=== PATIENT | male | born 1995 | race Caucasian/White ===

== ENCOUNTER 2022-09-16 17:40 | Emergency (ER) | payer SELFPAY | END 2022-09-16 18:00 | disposition left against medical advice (07) | LOC: ED 17:40 → EDSTATUS 17:50 → ED 18:00 | DX: Z53.21 Procedure and treatment not carried out due to patient leaving prior to being seen by health care provider (principal) ==

== ENCOUNTER 2022-10-10 21:42 | Emergency (ER) | payer MEDICAID ==
--- NOTE | 2022-10-10 22:13 | ERPHSYRPT ---
- History of Present Illness Source: patient Exam Limitations: no limitations Patient Subjective Stated Complaint: pt states he tested positive for covid on tuesday and has been "feeling off". Triage Nursing Assessment: pt alert and oriented, answers questions approp. pt a mbulatory with steady gait noted. respirations nonlabored with lungs cta. no distress noted. Physician History: 27 yo wm w +CV19 test on 10/05/22 presents w fever/cough/carl[place] za/N/V/D/chills/Myalgias. Pt was not started on Paxlovid. Sats in mid 90's. Timing/Duration: other (10/05/22) Cough Quality/Degree: dry cough Possible Cause: no prior episodes Modifying Factors: Improves With: nothing Associated Symptoms: fever, chills, cough, headache, muscle aches, nasal congestion, nasal drainage Allergies/Adverse Reactions: sulfamethoxazole [From Bactrim] Allergy (Unknown, Verified 10/10/22 22:05) trimethoprim [From Bactrim] Allergy (Unknown, Verified 10/10/22 22:05) Home Medications: PANTOPRAZOLE 40 mg Tablet [Protonix 40MG Tablet] 40 mg PO QAM 10/10/22 [History] Hx Tetanus, Diphtheria Vaccination/Date Given: Yes Hx Influenza Vaccination/Date Given: No Hx Pneumococcal Vaccination/Date Given: No Immunizations Up to Date: Yes Travel Risk - International Travel Have you traveled outside of the country in past 3 weeks: No - Coronavirus Screening Are you exhibiting any of the following symptoms?: Yes Symptoms: Fever, Cough: New Onset, Headaches/Body Aches/Fatigue Close contact with a COVID-19 positive Pt in past 14-21 Days: Yes - Vaccine Status Have you recieved a Covid-19 vaccination: No - Review of Systems Constitutional: No Symptoms, Fever, Chills, Malaise Eyes: No Symptoms Ears, Nose, & Throat: No Symptoms, Nose Congestion, Nose Discharge, Sinus Drainage Respiratory: No Symptoms, Cough Cardiac: No Symptoms Abdominal/Gastrointestinal: No Symptoms Genitourinary Symptoms: No Symptoms Musculoskeletal: No Symptoms, Myalgias Skin: No Symptoms Neurological: No Symptoms Psychological: No Symptoms Endocrine: No Symptoms Hematologic/Lymphatic: No Symptoms Immunological/Allergic: No Symptoms - Past Medical History Pertinent Past Medical History: No - Past Surgical History Past Surgical History: Yes - Social History Smoking Status: Former smoker Exposure to second hand smoke: No Drug Use: none Patient Lives Alone: No - Nursing Vital Signs Nursing Vital Signs: Initial Vital Signs Temperature 97.3 F 10/10/22 21:51 Pulse Rate 84 10/10/22 21:51 Respiratory Rate 16 10/10/22 21:51 Blood Pressure 151/90 10/10/22 21:51 O2 Sat by Pulse Oximetry 97 10/10/22 21:51 Pain Scale Pain Intensity 0 Hypertensive - Physical Exam General Appearance: no apparent distress Eye Exam: PERRL/EOMI, eyes nml inspection Ears, Nose, Throat Exam: normal ENT inspection, TMs normal, pharynx normal, moist mucous membranes Neck Exam: normal inspection, non-tender, supple, full range of motion, No meningismus, No mass, No Brudzinski, No Kernig's Respiratory Exam: normal breath sounds, lungs clear, airway intact, No respiratory distress Cardiovascular Exam: regular rate/rhythm, normal heart sounds, normal peripheral pulses, capillary refill <2 sec, No murmur Gastrointestinal/Abdomen Exam: soft, normal bowel sounds Back Exam: normal inspection, normal range of motion Extremity Exam: normal inspection, normal range of motion Neurologic Exam: alert, oriented x 3, cooperative, 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 Too late for Paxlovid therapy. Counseled pt/family regarding: diagnosis, need for follow-up - Departure Departure Disposition: Home Clinical Impression: COVID-19 Condition: Stable Critical Care Time: No Referrals: DOCTOR,NO FAMILY [Primary Care Provider] - Follow up/PCP as directed Instructions: Fever, Adult (DC), COVID-19 (DC) Additional Instructions: Rest/Fluids/Motrin/Tylenol Get a pulse oximeter and monitor your oxygen saturation 2-3 times a day Return to ER for persistent oxygen saturation less than 91%
[2022-10-10 22:24] VITALS: BP 144/92; PULSE 69
[2022-10-10 22:25] VITALS: O2SAT 97
== END 2022-10-10 22:22 | disposition home or self-care (01) ==
LOC: ED 21:42
DX: U07.1 COVID-19 (principal); R50.9 Fever, unspecified; R05.9 Cough, unspecified; R09.81 Nasal congestion; R11.2 Nausea with vomiting, unspecified; R19.7 Diarrhea, unspecified; M79.10 Myalgia, unspecified site; Z28.310 Unvaccinated for COVID-19
CPT/HCPCS: 99281

== ENCOUNTER 2022-10-14 08:10 | Emergency (ER) | payer MEDICAID ==
[2022-10-14 08:28] VITALS: O2SAT 98
[2022-10-14 08:57] LABS: Absolute Neutrophil Ct (ANC) 2.95 x10^3/uL (1.4-6.9); Basophil (Absolute #) 0.07 x10^3/uL (0-0.4); Eosinophil % 2.7 % (0.00-5.0); Eosinophil (Absolute #) 0.19 x10^3/uL (0-0.5); Hemoglobin 14.1 g/dL (12.5-18.0); Lymphocyte (Absolute #) 3.17 x10^3/uL (1.0-4.6); Lymphocytes % 45.5 % (24.0-44.0); Mean Cell Volume 89.4 fL (78-100); Mean Corpuscular Hemoglobin 29.3 pg (26-32); Mean Corpuscular Hgb Concent. 32.8 g/dL (32-36); Mean Platelet Volume 9.5 fL (7.5-11.0); Monocyte (Absolute #) 0.54 x10^3/uL (0.0-1.3); Monocytes % 7.8 % (0.0-12.0); Neutrophil % 42.4 % (36.0-66.0); Platelet Count 322 x10^3/uL (150-450); Red Blood Count 4.81 x10^6/uL (4.1-5.6); Red Cell Distribution Width 12.9 % (11.5-14.0)
[2022-10-14 09:04] LABS: Appearance CLEAR (CLEAR); Bilirubin NEGATIVE (NEGATIVE); Dipstick done @ ? MAIN LAB; Glucose NEGATIVE (NEGATIVE); Ketones NEGATIVE (NEGATIVE); Nitrite NEGATIVE (NEGATIVE); Ph 6.5 (5-6); Protein,Urine Dip NEGATIVE (Negative); RBC NEGATIVE Ery/ul (0-5); Specific Gravity 1.015 (1.005-1.025); Urobilinogen 0.2 mg/dL (0-1)
[2022-10-14 09:05] LABS: Urine Cultured Indicated? NO
[2022-10-14 09:09] LABS: ALBUMIN 4.4 g/dL (3.5-5.0); ALKALINE PHOSPHATASE 86 U/L (38-126); ANION GAP 10.1 MEQ/L (5-15); BLOOD UREA NITROGEN 16 mg/dL (9-20); CHLORIDE 105 mmol/L (98-107); Calcium 8.8 mg/dL (8.4-10.2); Carbon Dioxide 28 mmol/L (22-30); Creatinine 1 1.16 mg/dL (0.66-1.25); EST GLOMERULAR FILTRATION RATE > 60.0 ML/MIN; Glucose 102 mg/dL (74-106); Potassium 4.1 mmol/L (3.5-5.1); SGOT/AST 38 U/L (17-59); SGPT/ALT 64 U/L (0-50); SODIUM 138 mmol/L (137-145); Total Protein 7.4 g/dL (6.3-8.2)
--- NOTE | 2022-10-14 09:12 | ERPHSYRPT ---
- History of Present Illness Time Seen by Provider: 10/14/22 08:17 Source: patient Exam Limitations: no limitations Patient Subjective Stated Complaint: C/O general malaise, fatigue. Tested positive for COVID-19 on 10/12/22. Denies any current pain. Triage Nursing Assessment: Patient ambulated back to ED without difficulties. Patient able to undress self and put on gown without assistanct. He is alert and oriented. NO SOB noted. An occassional, non-productive cough is noted. Skin warm, dry, intact; scar noted to left palacios that patient indicates is from a previous MRSA infection. Physician History: 27 years old with a history of anxiety, GERD presented in the ER with nonspecific complaints. Patient reports he has been having minimal nonproductive cough congestion URI symptoms for almost a week and was diagnosed with COVID-19 2 days ago and is getting supportive care at home without any prescription medications. Patient reports feeling weak fatigued and tired and subjective feeling of fever and chills. Denies any difficulty breathing, chest pain but does have sinus congestion. No abdominal pain nausea vomiting or diarrhea reported. Patient reports he checked his temperature this morning and it was 94F, looked online and freaked out after he that he could be in a septic shock. Patient oxygen saturation is around 100% on room air, heart rate did mid 70s, blood pressure 135 systolic. Not in any distress at all. Timing/Duration: day(s) Severity: mild, moderate Modifying Factors: Improves With: nothing Associated Symptoms: cough, fever, headaches, loss of appetite, malaise, weakne ss, No vomiting, No abdominal pain, No shortness of breath, No heartburn, No chest pain, No syncope Allergies/Adverse Reactions: sulfamethoxazole [From Bactrim] Allergy (Unknown, Verified 10/14/22 08:18) trimethoprim [From Bactrim] Allergy (Unknown, Verified 10/14/22 08:18) Home Medications: PANTOPRAZOLE 40 mg Tablet [Protonix 40MG Tablet] 40 mg PO QAM 10/10/22 [History] Hx Tetanus, Diphtheria Vaccination/Date Given: Yes Hx Influenza Vaccination/Date Given: No Hx Pneumococcal Vaccination/Date Given: No Immunizations Up to Date: Yes Travel Risk - International Travel Have you traveled outside of the country in past 3 weeks: No - Coronavirus Screening Are you exhibiting any of the following symptoms?: Yes Symptoms: Cough: New Onset, Headaches/Body Aches/Fatigue Close contact with a COVID-19 positive Pt in past 14-21 Days: No - Vaccine Status Have you recieved a Covid-19 vaccination: No - Review of Systems Constitutional: Fever, Chills, Fatigue, Weakness Eyes: No Symptoms Ears, Nose, & Throat: Nose Congestion, Sinus Drainage, Throat Pain Respiratory: Cough Cardiac: No Symptoms Abdominal/Gastrointestinal: No Symptoms Genitourinary Symptoms: No Symptoms Musculoskeletal: Myalgias Skin: No Symptoms Neurological: No Symptoms Psychological: Anxiety Endocrine: No Symptoms Hematologic/Lymphatic: No Symptoms Immunological/Allergic: No Symptoms - Past Medical History Pertinent Past Medical History: Yes Respiratory History: Other Other Medical History: MRSA infection to LLE, COVID-19 X 2 - Past Surgical History Past Surgical History: Yes - Social History Smoking Status: Former smoker Exposure to second hand smoke: No Drug Use: none Patient Lives Alone: No - Nursing Vital Signs Nursing Vital Signs: Initial Vital Signs Temperature 97.3 F 10/14/22 08:18 Pulse Rate 94 H 10/14/22 08:18 Respiratory Rate 17 10/14/22 08:18 Blood Pressure 135/93 10/14/22 08:18 O2 Sat by Pulse Oximetry 98 10/14/22 08:18 Pain Scale Pain Intensity 0 - Physical Exam General Appearance: no apparent distress, alert, anxiety Eye Exam: PERRL/EOMI Ears, Nose, Throat Exam: moist mucous membranes, pharyngeal erythema Neck Exam: normal inspection, non-tender, supple, full range of motion Respiratory Exam: normal breath sounds, lungs clear Cardiovascular Exam: regular rate/rhythm, normal heart sounds Gastrointestinal/Abdomen Exam: soft, normal bowel sounds, No tenderness Back Exam: normal inspection, normal range of motion Extremity Exam: normal inspection, normal range of motion Neurologic Exam: alert, oriented x 3, cooperative Skin Exam: normal color SpO2 Interpretation: normal SpO2: 98 O2 Delivery: Room Air Ordered Tests: Active Orders 24 hr Category Date Time Status CBC W DIFF Stat Lab 10/14/22 08:50 Completed CMP Stat Lab 10/14/22 08:50 Completed UA W/RFX CULTURE Stat Lab 10/14/22 08:42 Completed Lab/Rad Data: Laboratory Result Diagrams 10/14/22 08:50 10/14/22 08:50 Laboratory Results 10/14/22 10/14/22 10/14/22 Range/Units 08:50 08:50 08:42 WBC 7.0 (4.0-10.5) x10^3/uL RBC 4.81 (4.1-5.6) x10^6/uL Hgb 14.1 (12.5-18.0) g/dL Hct 43.0 (42-50) % MCV 89.4 (78-100) fL MCH 29.3 (26-32) pg MCHC 32.8 (32-36) g/dL RDW 12.9 (11.5-14.0) % Plt Count 322 (150-450) x10^3/uL MPV 9.5 (7.5-11.0) fL Gran % 42.4 (36.0-66.0) % Immature Gran % (Auto) 0.6 H (0.00-0.4) % Nucleat RBC Rel Count 0.0 (0.00-0.1) % Eos # (Auto) 0.19 (0-0.5) x10^3/uL Immature Gran # (Auto) 0.04 H (0.00-0.03) x10^3u/L Absolute Lymphs (auto) 3.17 (1.0-4.6) x10^3/uL Absolute Monos (auto) 0.54 (0.0-1.3) x10^3/uL Absolute Nucleated RBC 0.00 (0.00-0.01) x10^3u/L Lymphocytes % 45.5 H (24.0-44.0) % Monocytes % 7.8 (0.0-12.0) % Eosinophils % 2.7 (0.00-5.0) % Basophils % 1.0 (0.0-0.4) % Absolute Granulocytes 2.95 (1.4-6.9) x10^3/uL Basophils # 0.07 (0-0.4) x10^3/uL Sodium 138 (137-145) mmol/L Potassium 4.1 (3.5-5.1) mmol/L Chloride 105 (98-107) mmol/L Carbon Dioxide 28 (22-30) mmol/L Anion Gap 10.1 (5-15) MEQ/L BUN 16 (9-20) mg/dL Creatinine 1.16 (0.66-1.25) mg/dL Estimated GFR > 60.0 ML/MIN Glucose 102 (74-106) mg/dL Calcium 8.8 (8.4-10.2) mg/dL Total Bilirubin 0.40 (0.2-1.3) mg/dL AST 38 (17-59) U/L ALT 64 H (0-50) U/L Alkaline Phosphatase 86 (38-126) U/L Serum Total Protein 7.4 (6.3-8.2) g/dL Albumin 4.4 (3.5-5.0) g/dL Urinalys Dipstick Clnc MAIN LAB Urine Color YELLOW (YELLOW) Urine Appearance CLEAR (CLEAR) Urine pH 6.5 (5-6) Ur Specific Hawi 1.015 (1.005-1.025) POC Urine Protein Conf NEGATIVE (Negative) Urine Ketones NEGATIVE (NEGATIVE) Urine Nitrite NEGATIVE (NEGATIVE) Urine Bilirubin NEGATIVE (NEGATIVE) Urine Urobilinogen 0.2 (0-1) mg/dL Urine Leukocytes NEGATIVE (NEGATIVE) Urine WBC (Auto) NONE (0-5) /HPF Urine RBC (Auto) NONE (0-2) /HPF U Epithel Cells (Auto) NONE (FEW) /HPF Urine Bacteria (Auto) NONE (NEGATIVE) /HPF Urine RBC NEGATIVE (0-5) Luis/ul Ur Culture Indicated? NO Urine Glucose NEGATIVE (NEGATIVE) mg/dL - Progress Progress: unchanged, re-examined Progress Note: 10/14/22 09:16 Patient is not in any distress. Work-up unremarkable. Patient is having usual symptoms of COVID-19/viral syndrome. Patient is counseled and recommended continue with supportive care. Part of his symptoms are secondary to anxiety as well. Recommended outpatient primary care follow-up. Discussed signs symptoms of worsening needing return to ER which he seems understanding. Stable for discharge. 10/14/22 09:17 Counseled pt/family regarding: lab results, diagnosis, need for follow-up - Departure Departure Disposition: Home Clinical Impression: Generalized weakness, COVID-19, Viral syndrome Condition: Stable Critical Care Time: No Referrals: DOCTOR,NO FAMILY [Primary Care Provider] - Follow up/PCP as directed ESVIN MORRISON MD [ACTIVE STAFF] - Follow Up with PCP/3 days Instructions: Viral Syndrome (DC) Additional Instructions: Take Tylenol/ibuprofen as needed for drink plenty of fluids to keep yourself well-hydrated follow-up with primary care for reevaluation. Return to ER for any worsening.
[2022-10-14 09:22] VITALS: BP 115/81; PULSE 82
== END 2022-10-14 09:29 | disposition home or self-care (01) ==
LOC: ED 08:10
DX: U07.1 COVID-19 (principal); R53.1 Weakness; R53.83 Other fatigue; R09.81 Nasal congestion; Z28.310 Unvaccinated for COVID-19; Z86.16 Personal history of COVID-19
CPT/HCPCS: 36415; 80053; 81015; 85025; 99282

== ENCOUNTER 2022-11-04 22:04 | Emergency (ER) | payer MEDICAID ==
[2022-11-04 22:56] LABS: Absolute Neutrophil Ct (ANC) 7.04 x10^3/uL (1.4-6.9); Basophil (Absolute #) 0.04 x10^3/uL (0-0.4); Eosinophil % 0.1 % (0.00-5.0); Eosinophil (Absolute #) 0.01 x10^3/uL (0-0.5); Hematocrit 45.8 % (42-50); Hemoglobin 14.8 g/dL (12.5-18.0); Lymphocyte (Absolute #) 1.21 x10^3/uL (1.0-4.6); Lymphocytes % 14.3 % (24.0-44.0); Mean Cell Volume 90.3 fL (78-100); Mean Corpuscular Hemoglobin 29.2 pg (26-32); Mean Corpuscular Hgb Concent. 32.3 g/dL (32-36); Mean Platelet Volume 10.3 fL (7.5-11.0); Monocyte (Absolute #) 0.13 x10^3/uL (0.0-1.3); Monocytes % 1.5 % (0.0-12.0); Neutrophil % 83.4 % (36.0-66.0); Platelet Count 296 x10^3/uL (150-450); Red Blood Count 5.07 x10^6/uL (4.1-5.6); Red Cell Distribution Width 13.1 % (11.5-14.0); White Blood Count 8.5 x10^3/uL (4.0-10.5)
[2022-11-04] MEDS ORDERED: GI COCKTAIL 45 ML (Maalox/Lidocaine) PO ONE (23:14)
--- NOTE | 2022-11-04 23:16 | ERPHSYRPT ---
- History of Present Illness Time Seen by Provider: 11/04/22 22:08 Historian: patient Exam Limitations: no limitations Patient Subjective Stated Complaint: pt states he has been having chest pains for last 3 weeks. states today chest pressure feels worse. pt points to mids ternal for chest pain and does not radiate. pt has also been having headaches for last 3 months. s/o with pt states he has been having a lot of stress lately and chest pain seems to be worse when he gets upset. Triage Nursing Assessment: pt alert and oriented, answers questions approp. pt ambulatory with steady gaot noted. respirations nonlabored with lungs cta bilat. heart rarte 86 sinus rhythmo n monitor. Physician History: 27 years old male was recently diagnosed with sinusitis on Medrol Dosepak and doxycycline for the last few days presented in the ER with epigastric/substernal discomfort and coughing clear to yellow sputum without shortness of breath. This has been progressively worsening for the last few weeks. Patient did have COVID 3 weeks ago. Denies any difficulty breathing or palpitations. No history of CAD. Timing/Duration: week(s) (3), intermittent, worse Activities at Onset: rest Quality: pressure Location: epigastric Chest Pain Radiation: no radiation Severity of Pain-Max: moderate Severity of Pain-Current: moderate Modifying Factors: Improves With: nothing Associated Symptoms: cough Prior Chest Pain/Cardiac Workup: no prior chest pain Nitro Today/Relief: no nitro taken today Aspirin Treatment Today: no aspirin today Allergies/Adverse Reactions: sulfamethoxazole [From Bactrim] Allergy (Unknown, Verified 11/04/22 22:37) trimethoprim [From Bactrim] Allergy (Unknown, Verified 11/04/22 22:37) Home Medications: PANTOPRAZOLE 40 mg Tablet [Protonix 40MG Tablet] 40 mg PO QAM 10/10/22 [History] Hx Tetanus, Diphtheria Vaccination/Date Given: Yes Hx Influenza Vaccination/Date Given: No Hx Pneumococcal Vaccination/Date Given: No Immunizations Up to Date: Yes Travel Risk - International Travel Have you traveled outside of the country in past 3 weeks: No - Coronavirus Screening Are you exhibiting any of the following symptoms?: No Close contact with a COVID-19 positive Pt in past 14-21 Days: No - Vaccine Status Have you recieved a Covid-19 vaccination: No - Review of Systems Constitutional: No Symptoms Eyes: No Symptoms Ears, Nose, & Throat: Sinus Drainage Respiratory: Cough Cardiac: No Symptoms Abdominal/Gastrointestinal: No Symptoms Genitourinary Symptoms: No Symptoms Musculoskeletal: No Symptoms Skin: No Symptoms Neurological: No Symptoms Psychological: Anxiety Endocrine: No Symptoms Hematologic/Lymphatic: No Symptoms Immunological/Allergic: No Symptoms - Past Medical History Pertinent Past Medical History: Yes Respiratory History: Other Other Medical History: MRSA infection to LLE, COVID-19 X 2 - Past Surgical History Past Surgical History: Yes - Social History Smoking Status: Former smoker Exposure to second hand smoke: No Drug Use: none Patient Lives Alone: No - Nursing Vital Signs Nursing Vital Signs: Initial Vital Signs Temperature 97.4 F 11/04/22 22:07 Pulse Rate 80 11/04/22 22:07 Respiratory Rate 18 11/04/22 22:07 Blood Pressure 144/72 11/04/22 22:07 O2 Sat by Pulse Oximetry 97 11/04/22 22:07 Pain Scale Pain Intensity 7 - Physical Exam General Appearance: no apparent distress, alert, anxiety Eye Exam: PERRL/EOMI, eyes nml inspection Ears, Nose, Throat Exam: moist mucous membranes, pharyngeal erythema Neck Exam: normal inspection, non-tender, supple, full range of motion Respiratory Exam: normal breath sounds, lungs clear Cardiovascular Exam: regular rate/rhythm, normal heart sounds Gastrointestinal/Abdomen Exam: soft Back Exam: normal inspection, normal range of motion Extremity Exam: normal inspection, normal range of motion Neurologic Exam: alert, oriented x 3, 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 Skin Exam: normal color SpO2 Interpretation: normal SpO2: 97 O2 Delivery: Room Air - Course EKG Interpreted by Me: RATE, Sinus Rhythm, NORMAL AXIS, NORMAL INTERVALS Ordered Tests: Active Orders 24 hr Category Date Time Status Claims Processor STAT Care 11/04/22 22:38 Active EKG-ER Only STAT Care 11/04/22 22:37 Active CHEST 1 VIEW (PORTABLE) Stat Exams 11/04/22 22:59 Taken CBC W DIFF Stat Lab 11/04/22 22:54 Completed CMP Stat Lab 11/04/22 22:54 Completed TROPONIN Q4H Lab 11/04/22 22:54 Completed TROPONIN Q4H Lab 11/05/22 02:45 Ordered TROPONIN Q4H Lab 11/05/22 06:45 Ordered Medication Summary Discontinued Medications Generic Name Dose Route Start Last Admin Trade Name Clarissa PRN Reason Stop Dose Admin Al Hydrox/Mg Hydrox/Simethicone Confirm 11/04/22 23:20 Mag Hydrox/Al Hydrox/Simeth 30 Ml Udcup Administered 11/04/22 23:21 Dose 30 ml .ROUTE .STK-MED ONE Lidocaine HCl Confirm 11/04/22 23:20 Lidocaine Hcl 2% Viscous 15 Ml Udcup Administered 11/04/22 23:21 Dose 15 ml .ROUTE .STK-MED ONE Magnesium Hydroxide 45 ml 11/04/22 23:14 11/04/22 23:24 Mag Hydrx/Alum Hyd/Simeth/Lido 45 Ml Bottle PO 11/04/22 23:15 45 ml STAT ONE Administration Lab/Rad Data: Laboratory Result Diagrams 11/04/22 22:54 11/04/22 22:54 Laboratory Results 11/04/22 11/04/22 11/04/22 Range/Units 22:54 22:54 22:54 WBC 8.5 (4.0-10.5) x10^3/uL RBC 5.07 (4.1-5.6) x10^6/uL Hgb 14.8 (12.5-18.0) g/dL Hct 45.8 (42-50) % MCV 90.3 (78-100) fL MCH 29.2 (26-32) pg MCHC 32.3 (32-36) g/dL RDW 13.1 (11.5-14.0) % Plt Count 296 (150-450) x10^3/uL MPV 10.3 (7.5-11.0) fL Gran % 83.4 H (36.0-66.0) % Immature Gran % (Auto) 0.2 (0.00-0.4) % Nucleat RBC Rel Count 0.0 (0.00-0.1) % Eos # (Auto) 0.01 (0-0.5) x10^3/uL Immature Gran # (Auto) 0.02 (0.00-0.03) x10^3u/L Absolute Lymphs (auto) 1.21 (1.0-4.6) x10^3/uL Absolute Monos (auto) 0.13 (0.0-1.3) x10^3/uL Absolute Nucleated RBC 0.00 (0.00-0.01) x10^3u/L Lymphocytes % 14.3 L (24.0-44.0) % Monocytes % 1.5 (0.0-12.0) % Eosinophils % 0.1 (0.00-5.0) % Basophils % 0.5 (0.0-0.4) % Absolute Granulocytes 7.04 H (1.4-6.9) x10^3/uL Basophils # 0.04 (0-0.4) x10^3/uL Sodium 139 (137-145) mmol/L Potassium 4.4 (3.5-5.1) mmol/L Chloride 103 (98-107) mmol/L Carbon Dioxide 27 (22-30) mmol/L Anion Gap 13.1 (5-15) MEQ/L BUN 20 (9-20) mg/dL Creatinine 1.43 H (0.66-1.25) mg/dL Estimated GFR > 60.0 ML/MIN Glucose 115 H (74-106) mg/dL Calcium 9.8 (8.4-10.2) mg/dL Total Bilirubin 0.30 (0.2-1.3) mg/dL AST 39 (17-59) U/L ALT 66 H (0-50) U/L Alkaline Phosphatase 86 (38-126) U/L Troponin I < 0.012 (0.000-0.034) ng/mL Serum Total Protein 7.8 (6.3-8.2) g/dL Albumin 5.0 (3.5-5.0) g/dL - Progress Progress: improved, re-examined Air Movement: good Progress Note: 11/05/22 00:17 27 years old is evaluated for cough congestion, URI/sinusitis currently on Doxy and Medrol Dosepak with chest pain off and on for the last few weeks. Reports burning/pressure sensation without any difficulty breathing or palpitations. No fever or chills reported. Patient does have a history of acid reflux and have some epigastric discomfort. He is given GI cocktail. EKG showed normal sinus rhythm. Negative troponins. PERC negative. Chest x-ray no acute c ardiopulmonary findings reviewed by me, official report is pending. Mild SAFIA with a creatinine of 1.4 with a baseline around 1.1. Recommended increase hydration. Otherwise unremarkable chemistries. I believe patient is having a combination of symptoms secondary to viral bronchitis/gastritis with GERD symptoms because he has been taking steroids and doxycycline. Low heart score, do not think needs any further work-up and patient is being discharged with Carafate and outpatient follow-up. Discussed signs symptoms of worsening needing return to ER which she seems understanding. Since symptoms been going on for quite some time and I do not think that needs second troponin and 1 will rule it out. Blood Culture(s) Obtained: No Antibiotics given: No Counseled pt/family regarding: lab results, diagnosis, need for follow-up, rad results - Departure Departure Disposition: Home Clinical Impression: GERD with esophagitis, Atypical chest pain, SAFIA (acute kidney injury) Condition: Referrals: NAN SILVER, [employer] [Primary Care Provider] - Follow up/PCP as directed (1 2 days for reevaluation) Instructions: Chest Pain (DC), Acute Kidney Injury (DC) Additional Instructions: Do not take NSAIDs / ibuprofen. Follow-up with primary care for reevaluation. Return to ER for any worsening. Drink plenty of fluids to keep yourself well- hydrated. Take Tylenol as needed. Prescriptions: Sucralfate 1 gm [Carafate 1 GM] 1 g PO ACHS #20 tablet
[2022-11-04] MEDS ORDERED: XYLOCAINE VISCOUS 2% 15 ML CUP ONE (23:20)
[2022-11-04] MEDS ORDERED: MAALOX ES 30 ML UNIT DOSE ONE (23:20)
[2022-11-04 23:21] LABS: ALKALINE PHOSPHATASE 86 U/L (38-126); ANION GAP 13.1 MEQ/L (5-15); BLOOD UREA NITROGEN 20 mg/dL (9-20); CHLORIDE 103 mmol/L (98-107); Calcium 9.8 mg/dL (8.4-10.2); Carbon Dioxide 27 mmol/L (22-30); Creatinine 1 1.43 mg/dL (0.66-1.25); EST GLOMERULAR FILTRATION RATE > 60.0 ML/MIN; Glucose 115 mg/dL (74-106); Potassium 4.4 mmol/L (3.5-5.1); SGOT/AST 39 U/L (17-59); SGPT/ALT 66 U/L (0-50); SODIUM 139 mmol/L (137-145); Total Protein 7.8 g/dL (6.3-8.2)
[2022-11-04 23:28] VITALS: BP 117/71; PULSE 75
[2022-11-05 00:19] VITALS: O2SAT 97
--- NOTE | 2022-11-05 08:54 | XRAY ---
Indication: Chest pain 3 weeks. Comparison: None Portable apical lordotic chest demonstrates normal heart, lungs, and bony thorax.
== END 2022-11-05 00:49 | disposition home or self-care (01) ==
LOC: ED 22:04
DX: K21.00 Gastro-esophageal reflux disease with esophagitis, without bleeding (principal); R07.89 Other chest pain; N17.9 Acute kidney failure, unspecified; R05.9 Cough, unspecified; Z86.16 Personal history of COVID-19; Z28.310 Unvaccinated for COVID-19
CPT/HCPCS: 36415; 71045; 80053; 84484; 85025; 93005; 93041; 99283; A9270-GY

== ENCOUNTER 2022-11-05 19:13 | Emergency (ER) | payer MEDICAID ==
[2022-11-05] MEDS ORDERED: Zofran 4 MG/2 ML VIAL IV ONE (20:07)
[2022-11-05] MEDS ORDERED: PROTONIX 40 MG IV IV ONE ×2 (20:07→20:21)
[2022-11-05] MEDS ORDERED: Sodium Chloride 0.9% 1000 ML 1,000 ML IV STA (20:07)
--- NOTE | 2022-11-05 20:17 | ERPHSYRPT ---
- History of Present Illness Historian: patient Exam Limitations: no limitations Patient Subjective Stated Complaint: pt states he feels like he has something stuck in his throat. pt states he got medicine last night and has trouble since then. pt states burning sensation Triage Nursing Assessment: pt ambulated into the er; pt is axo x4; pt is nervous and anxious; c/o indigestion; pt states 8/10 pain to throat; clear lung sounds in all lobes; no obstruction noted with auscultation; clear heart tones; skin PDW; mucus membranes pink and moist; vitals wnl Physician History: 27-year-old male presenting to the ED today with a 2-day history of chest heaviness, nausea, coffee-ground emesis and a feeling that something is stuck in his throat. Patient was evaluated in the ED yesterday and was given a GI cocktail after cardiac etiology was ruled out. Patient reports that symptoms worsened after receiving the GI cocktail. Patient states that around 830 this morning his symptoms worsed. He reports a history of 40 mg a day pantoprazole use, but denies ever having an EGD or ulcer history. Patient also reporting abdominal pain worsening epigastric region. He denies fever, chills, SOB, palpitation or hematochezia. He has been unable to eat or drink anything since last night. Patient also reports that he has had abnormal bowel movement in significant amount of time. His stool alternates between loose and small round pellets. Timing/Duration: yesterday Activities at Onset: none Quality: burning, fullness, pressure Abdominal Pain Onset Location: epigastric Pain Radiation: no radiation Severity of Pain-Max: moderate Severity of Pain-Current: moderate Modifying Factors: Worsens With: eating, vomiting Associated Symptoms: chest pain, heartburn, loss of appetite, nausea, vomiting, No diarrhea, No fever/chills, No shortness of breath Allergies/Adverse Reactions: sulfamethoxazole [From Bactrim] Allergy (Unknown, Verified 11/05/22 19:17) trimethoprim [From Bactrim] Allergy (Unknown, Verified 11/05/22 19:17) Home Medications: PANTOPRAZOLE 40 mg Tablet [Protonix 40MG Tablet] 40 mg PO QAM 10/10/22 [History] Doxycycline Hyclate 100 mg PO BID 11/05/22 [History] Methylprednisolone 4 mg [Medrol 4 mg] 4 mg PO DAILY 11/05/22 [History] Hx Tetanus, Diphtheria Vaccination/Date Given: Yes Hx Influenza Vaccination/Date Given: No Hx Pneumococcal Vaccination/Date Given: No Travel Risk - International Travel Have you traveled outside of the country in past 3 weeks: No - Coronavirus Screening Are you exhibiting any of the following symptoms?: No Close contact with a COVID-19 positive Pt in past 14-21 Days: No - Vaccine Status Have you recieved a Covid-19 vaccination: No - Review of Systems Constitutional: No Symptoms Eyes: No Symptoms Ears, Nose, & Throat: Nose Congestion, Sinus Drainage Respiratory: No Symptoms Cardiac: Chest Pain, No Palpitations, No Syncope Abdominal/Gastrointestinal: Abdominal Pain, Nausea, Vomiting, Constipation, Hematemesis, Dysphagia, Appetite Changes, No Diarrhea, No Hematochezia, No Melena Genitourinary Symptoms: Dysuria, No Hematuria, No Urinary Retention, No Flank Pain Musculoskeletal: No Symptoms Skin: No Symptoms Neurological: No Symptoms Psychological: No Symptoms Endocrine: No Symptoms Hematologic/Lymphatic: No Symptoms Immunological/Allergic: No Symptoms All Other Systems: Reviewed and Negative - Past Medical History Pertinent Past Medical History: Yes Respiratory History: Other GI Medical History: GERD Psycho-Social History: Depression Other Medical History: MRSA infection to LLE, COVID-19 X 2 - Past Surgical History Past Surgical History: Yes - Social History Smoking Status: Former smoker Exposure to second hand smoke: No Drug Use: none Patient Lives Alone: No - Nursing Vital Signs Nursing Vital Signs: Initial Vital Signs Temperature 97.4 F 11/05/22 19:13 Pulse Rate 76 11/05/22 19:13 Respiratory Rate 14 11/05/22 19:13 Blood Pressure 130/61 11/05/22 19:13 O2 Sat by Pulse Oximetry 97 11/05/22 19:13 Pain Scale Pain Intensity 6 - Physical Exam General Appearance: no apparent distress, anxiety Eye Exam: eyes nml inspection Ears, Nose, Throat Exam: normal ENT inspection Neck Exam: normal inspection Respiratory Exam: normal breath sounds, lungs clear, No chest tenderness Cardiovascular Exam: regular rate/rhythm, normal heart sounds, capillary refill <2 sec, No edema Gastrointestinal/Abdomen Exam: soft, normal bowel sounds, tenderness (epigastric), No distention, No guarding, No ecchymosis, No rebound, No hepa tomegaly, No organomegaly Back Exam: No CVA tenderness Neurologic Exam: alert, oriented x 3, cooperative Skin Exam: normal color, warm, dry SpO2 Interpretation: normal SpO2: 97 O2 Delivery: Room Air - Radiology Exams Abdomen X-ray Interpretation: Interpreted by me, Negative Ordered Tests: Active Orders 24 hr Category Date Time Status IV Insertion STAT Care 11/05/22 20:07 Active NPO (ED) STAT Care 11/05/22 20:07 Active Pulse Oximetry (ED) STAT Care 11/05/22 20:07 Active OBSTR/ACUTE ABDOMEN SERIES Stat Exams 11/05/22 20:08 Taken CBC W DIFF Stat Lab 11/05/22 20:20 Completed CMP Stat Lab 11/05/22 20:20 Completed FECAL OCCULT BLOOD - SCREENING Stat Lab 11/05/22 20:08 Ordered Lactic Acid Stat Lab 11/05/22 20:18 Completed PTT Stat Lab 11/05/22 20:20 Completed Medication Summary Discontinued Medications Generic Name Dose Route Start Last Admin Trade Name Clarissa PRN Reason Stop Dose Admin Sodium Chloride 1,000 mls @ 999 mls/hr 11/05/22 20:07 11/05/22 21:32 Sodium Chloride 0.9% 1000 Ml IV 11/05/22 21:07 Infused .Q1H1M STA Infusion Sodium Chloride Confirm 11/05/22 20:21 Sodium Chloride 0.9% 1000 Ml Administered 11/05/22 20:22 Dose 1,000 mls @ ud .ROUTE .STK-MED ONE Ondansetron HCl 4 mg 11/05/22 20:07 11/05/22 20:26 Ondansetron Hcl 4 Mg/2 Ml Vial IV 11/05/22 20:08 4 mg STAT ONE Administration Ondansetron HCl Confirm 11/05/22 20:21 Ondansetron Hcl 4 Mg/2 Ml Vial Administered 11/05/22 20:22 Dose 4 mg .ROUTE .STK-MED ONE Pantoprazole Sodium 40 mg 11/05/22 20:07 11/05/22 20:26 Pantoprazole 40 Mg Vial IV 11/05/22 20:08 40 mg STAT ONE Administration Pantoprazole Sodium Confirm 11/05/22 20:21 Pantoprazole 40 Mg Vial Administered 11/05/22 20:22 Dose 40 mg IV .STK-MED ONE Lab/Rad Data: Laboratory Result Diagrams 11/05/22 20:20 11/05/22 20:20 Laboratory Results 11/05/22 11/05/22 11/05/22 Range/Units 20:20 20:20 20:20 WBC 10.7 H (4.0-10.5) x10^3/uL RBC 4.91 (4.1-5.6) x10^6/uL Hgb 14.4 (12.5-18.0) g/dL Hct 43.7 (42-50) % MCV 89.0 (78-100) fL MCH 29.3 (26-32) pg MCHC 33.0 (32-36) g/dL RDW 13.1 (11.5-14.0) % Plt Count 280 (150-450) x10^3/uL MPV 10.7 (7.5-11.0) fL Gran % 60.5 (36.0-66.0) % Immature Gran % (Auto) 0.4 (0.00-0.4) % Nucleat RBC Rel Count 0.0 (0.00-0.1) % Eos # (Auto) 0.05 (0-0.5) x10^3/uL Immature Gran # (Auto) 0.04 H (0.00-0.03) x10^3u/L Absolute Lymphs (auto) 3.24 (1.0-4.6) x10^3/uL Absolute Monos (auto) 0.81 (0.0-1.3) x10^3/uL Absolute Nucleated RBC 0.00 (0.00-0.01) x10^3u/L Lymphocytes % 30.3 (24.0-44.0) % Monocytes % 7.6 (0.0-12.0) % Eosinophils % 0.5 (0.00-5.0) % Basophils % 0.7 (0.0-0.4) % Absolute Granulocytes 6.49 (1.4-6.9) x10^3/uL Basophils # 0.07 (0-0.4) x10^3/uL APTT 26.3 (25.1-36.5) SECONDS Sodium 141 (137-145) mmol/L Potassium 4.0 (3.5-5.1) mmol/L Chloride 105 (98-107) mmol/L Carbon Dioxide 27 (22-30) mmol/L Anion Gap 12.4 (5-15) MEQ/L BUN 15 (9-20) mg/dL Creatinine 1.01 (0.66-1.25) mg/dL Estimated GFR > 60.0 ML/MIN Glucose 106 (74-106) mg/dL Lactic Acid (0.4-2.0) Calcium 9.7 (8.4-10.2) mg/dL Total Bilirubin 0.50 (0.2-1.3) mg/dL AST 34 (17-59) U/L ALT 59 H (0-50) U/L Alkaline Phosphatase 64 (38-126) U/L Serum Total Protein 7.6 (6.3-8.2) g/dL Albumin 4.9 (3.5-5.0) g/dL 11/05/22 Range/Units 20:18 WBC (4.0-10.5) x10^3/uL RBC (4.1-5.6) x10^6/uL Hgb (12.5-18.0) g/dL Hct (42-50) % MCV (78-100) fL MCH (26-32) pg MCHC (32-36) g/dL RDW (11.5-14.0) % Plt Count (150-450) x10^3/uL MPV (7.5-11.0) fL Gran % (36.0-66.0) % Immature Gran % (Auto) (0.00-0.4) % Nucleat RBC Rel Count (0.00-0.1) % Eos # (Auto) (0-0.5) x10^3/uL Immature Gran # (Auto) (0.00-0.03) x10^3u/L Absolute Lymphs (auto) (1.0-4.6) x10^3/uL Absolute Monos (auto) (0.0-1.3) x10^3/uL Absolute Nucleated RBC (0.00-0.01) x10^3u/L Lymphocytes % (24.0-44.0) % Monocytes % (0.0-12.0) % Eosinophils % (0.00-5.0) % Basophils % (0.0-0.4) % Absolute Granulocytes (1.4-6.9) x10^3/uL Basophils # (0-0.4) x10^3/uL APTT (25.1-36.5) SECONDS Sodium (137-145) mmol/L Potassium (3.5-5.1) mmol/L Chloride (98-107) mmol/L Carbon Dioxide (22-30) mmol/L Anion Gap (5-15) MEQ/L BUN (9-20) mg/dL Creatinine (0.66-1.25) mg/dL Estimated GFR ML/MIN Glucose (74-106) mg/dL Lactic Acid 1.7 (0.4-2.0) Calcium (8.4-10.2) mg/dL Total Bilirubin (0.2-1.3) mg/dL AST (17-59) U/L ALT (0-50) U/L Alkaline Phosphatase (38-126) U/L Serum Total Protein (6.3-8.2) g/dL Albumin (3.5-5.0) g/dL - Progress Progress: improved Progress Note: Patient improved after IV protonix. Hb wnl, minimal wbc, SAFIA from yesterday resolved, liver function improving, unable to give stool sample for occult. Discussed f/u w/ Dr. Alexander for possible EGD. Will d/c on Pantoprazole 40mg BID. 11/05/22 22:08 Counseled pt/family regarding: lab results, diagnosis, need for follow-up, rad results - Departure Departure Disposition: Home Clinical Impression: Esophageal spasm GERD (gastroesophageal reflux disease) Qualifiers: Esophagitis presence: esophagitis presence not specified Qualified Code(s): K21.9 - Gastro-esophageal reflux disease without esophagitis Condition: Good Critical Care Time: No Referrals: NAN SILVER NP [Primary Care Provider] - Follow up/PCP as directed Instructions: Acid Reflux and GERD in Adults (DC) Prescriptions: PANTOPRAZOLE 40 mg Tablet [Protonix 40MG Tablet] 40 mg PO BID 30 Days #60 tab
[2022-11-05] MEDS ORDERED: Sodium Chloride 0.9% 1000 ML 1,000 ML ONE (20:21)
[2022-11-05] MEDS ORDERED: Zofran 4 MG/2 ML VIAL ONE (20:21)
[2022-11-05 20:28] LABS: Absolute Neutrophil Ct (ANC) 6.49 x10^3/uL (1.4-6.9); Basophil (Absolute #) 0.07 x10^3/uL (0-0.4); Eosinophil % 0.5 % (0.00-5.0); Eosinophil (Absolute #) 0.05 x10^3/uL (0-0.5); Hematocrit 43.7 % (42-50); Hemoglobin 14.4 g/dL (12.5-18.0); Lymphocyte (Absolute #) 3.24 x10^3/uL (1.0-4.6); Lymphocytes % 30.3 % (24.0-44.0); Mean Corpuscular Hemoglobin 29.3 pg (26-32); Mean Platelet Volume 10.7 fL (7.5-11.0); Monocyte (Absolute #) 0.81 x10^3/uL (0.0-1.3); Monocytes % 7.6 % (0.0-12.0); Neutrophil % 60.5 % (36.0-66.0); Platelet Count 280 x10^3/uL (150-450); Red Blood Count 4.91 x10^6/uL (4.1-5.6); Red Cell Distribution Width 13.1 % (11.5-14.0); White Blood Count 10.7 x10^3/uL (4.0-10.5)
[2022-11-05 20:42] LABS: ALBUMIN 4.9 g/dL (3.5-5.0); ALKALINE PHOSPHATASE 64 U/L (38-126); ANION GAP 12.4 MEQ/L (5-15); BLOOD UREA NITROGEN 15 mg/dL (9-20); CHLORIDE 105 mmol/L (98-107); Calcium 9.7 mg/dL (8.4-10.2); Carbon Dioxide 27 mmol/L (22-30); Creatinine 1 1.01 mg/dL (0.66-1.25); EST GLOMERULAR FILTRATION RATE > 60.0 ML/MIN; Glucose 106 mg/dL (74-106); SGOT/AST 34 U/L (17-59); SGPT/ALT 59 U/L (0-50); SODIUM 141 mmol/L (137-145); Total Protein 7.6 g/dL (6.3-8.2)
[2022-11-05 22:14] VITALS: O2SAT 97
[2022-11-05 22:24] VITALS: BP 121/64; PULSE 72
--- NOTE | 2022-11-06 07:26 | XRAY ---
Indication: Abdomen pain, nausea, and vomiting. Comparison: Chest exam November 04, 2022 2 view abdomen nonacute and nonobstructed with incidental mild scattered fecal stasis. Solid organs and osseous structures unremarkable. Single PA chest again demonstrates normal heart, lungs, and bony thorax.
== END 2022-11-05 22:40 | disposition home or self-care (01) ==
LOC: ED 19:13
DX: K22.4 Dyskinesia of esophagus (principal); K21.9 Gastro-esophageal reflux disease without esophagitis; R07.9 Chest pain, unspecified; R11.2 Nausea with vomiting, unspecified; R09.89 Other specified symptoms and signs involving the circulatory and respiratory systems; R10.13 Epigastric pain; R19.4 Change in bowel habit; Z79.52 Long term (current) use of systemic steroids; Z79.899 Other long term (current) drug therapy; Z28.310 Unvaccinated for COVID-19; Z86.16 Personal history of COVID-19
CPT/HCPCS: 36000; 36415; 74022; 80053; 83605; 85025; 85730; 94760; 96360; 96374; 96375; 99284; J2405

== ENCOUNTER 2022-12-08 17:54 | Emergency (ER) | payer MEDICAID ==
[2022-12-08 18:47] LABS: Absolute Neutrophil Ct (ANC) 5.45 x10^3/uL (1.4-6.9); Eosinophil % 0.9 % (0.00-5.0); Eosinophil (Absolute #) 0.09 x10^3/uL (0-0.5); Hemoglobin 14.3 g/dL (12.5-18.0); IMMATURE GRAN # 0.03 x10^3u/L (0.00-0.03); IMMATURE GRAN % 0.3 % (0.00-0.4); Lymphocyte (Absolute #) 3.08 x10^3/uL (1.0-4.6); Lymphocytes % 32.2 % (24.0-44.0); Mean Cell Volume 87.8 fL (78-100); Mean Corpuscular Hemoglobin 29.2 pg (26-32); Mean Corpuscular Hgb Concent. 33.3 g/dL (32-36); Mean Platelet Volume 10.4 fL (7.5-11.0); Monocyte (Absolute #) 0.82 x10^3/uL (0.0-1.3); Monocytes % 8.6 % (0.0-12.0); Platelet Count 283 x10^3/uL (150-450); Red Cell Distribution Width 12.8 % (11.5-14.0); White Blood Count 9.6 x10^3/uL (4.0-10.5)
[2022-12-08 18:59] LABS: ALKALINE PHOSPHATASE 74 U/L (38-126); ANION GAP 13.4 MEQ/L (5-15); BLOOD UREA NITROGEN 21 mg/dL (9-20); CHLORIDE 105 mmol/L (98-107); Calcium 9.9 mg/dL (8.4-10.2); Carbon Dioxide 23 mmol/L (22-30); Creatinine 1 1.13 mg/dL (0.66-1.25); EST GLOMERULAR FILTRATION RATE > 60.0 ML/MIN; Glucose 88 mg/dL (74-106); Potassium 3.8 mmol/L (3.5-5.1); SGOT/AST 57 U/L (17-59); SGPT/ALT 76 U/L (0-50); SODIUM 137 mmol/L (137-145); Total Protein 7.9 g/dL (6.3-8.2)
[2022-12-08 19:26] LABS: INFLUENZA A NEGATIVE (NEGATIVE); INFLUENZA B NEGATIVE (NEGATIVE); RESPIRATORY SYNCTIAL VIRUS NEGATIVE (Negative); SARS-CoV-2 Xpert Express NEGATIVE (NEGATIVE)
[2022-12-08 19:37] LABS: Appearance Clear (Clear); Bacteria None Seen /HPF (None Seen); Bilirubin Negative (Negative); Blood Negative (Negative); Epithelial Cells None Seen /HPF (None Seen); Glucose, Urine Negative (Negative); Hyaline Casts NONE SEEN /LPF (0-2); Ketones Negative (Negative); Leukocyte Esterase Negative (Negative); Nitrite Negative (Negative); Protein,Urine Dip Negative (Negative); RBC 0-2 /HPF (0-5); Specific Gravity 1.025 (1.005-1.030); Urobilinogen 0.2 mg/dL (0.2); WBC 0-2 /HPF (0-5)
[2022-12-08 19:47] LABS: ADD URINE CULTURE? NO (NO)
[2022-12-08] MEDS ORDERED: Sodium Chloride 0.9% 500 ML 500 ML IV ONE ×2 (19:58→20:01)
--- NOTE | 2022-12-08 20:04 | ERPHSYRPT ---
- History of Present Illness Time Seen by Provider: 12/08/22 18:20 Source: patient Exam Limitations: no limitations Patient Subjective Stated Complaint: Pt states "I have had headaches on and off for awhile now and I do no feel well. It hurts when I pee and I just feel like crap." Triage Nursing Assessment: Pt presented alert and oriented X 3, skin pwd. Pt ambulates with an upright steady gait, able to speak in clear full sentences. pt resting comfortably on the bed. Physician History: Patient is a 27-year-old male presents emergency department for evaluation of intermittent headaches. Patient states he has been experiencing intermittent headaches for approximately 1 month. Patient states this is unusual. Patient also complains of dysuria. No trauma. No fever. Patient states that he occasionally feels intermittent tremors of his hands. No nausea no vomiting no diarrhea no rash. No obvious sick contacts. Patient has no significant past medical history. Patient went to [facility] with the same complaints approximately 2 weeks ago. Patient was told that he had a sinus infection. Patient to follow-up with his primary care doctor about 2 weeks ago as well. Lab work was done at that time. Lab work was negative. Patient feels something is wrong but is not quite sure. Patient voices no other complaints or concerns at this time. Portions of this note were created with voice recognition technology. There may be grammatical, spelling, punctuation or sound alike errors Timing/Duration: other (1 month) Severity: moderate Modifying Factors: Improves With: nothing Associated Symptoms: denies symptoms Allergies/Adverse Reactions: sulfamethoxazole [From Bactrim] Allergy (Unknown, Verified 11/05/22 19:17) trimethoprim [From Bactrim] Allergy (Unknown, Verified 11/05/22 19:17) Home Medications: PANTOPRAZOLE 40 mg Tablet [Protonix 40MG Tablet] 40 mg PO QAM 10/10/22 [History] Lisinopril 10 mg [Zestril 10 MG] 10 mg PO DAILY 12/08/22 [History] Hx Tetanus, Diphtheria Vaccination/Date Given: Yes Hx Influenza Vaccination/Date Given: No Hx Pneumococcal Vaccination/Date Given: No Immunizations Up to Date: Yes Travel Risk - International Travel Have you traveled outside of the country in past 3 weeks: No - Coronavirus Screening Are you exhibiting any of the following symptoms?: Yes Symptoms: Headaches/Body Aches/Fatigue Close contact with a COVID-19 positive Pt in past 14-21 Days: No - Vaccine Status Have you recieved a Covid-19 vaccination: No - Review of Systems Constitutional: No Symptoms, No Fever, No Chills Eyes: No Symptoms Ears, Nose, & Throat: No Symptoms Respiratory: No Symptoms, No Cough, No Dyspnea Cardiac: No Symptoms, No Chest Pain, No Edema, No Syncope Abdominal/Gastrointestinal: No Symptoms, No Abdominal Pain, No Nausea, No Vomiti ng, No Diarrhea Genitourinary Symptoms: No Symptoms, No Dysuria Musculoskeletal: No Symptoms, No Back Pain, No Neck Pain Skin: No Symptoms, No Rash Neurological: No Symptoms, No Dizziness, No Focal Weakness, No Sensory Changes Psychological: No Symptoms Endocrine: No Symptoms Hematologic/Lymphatic: No Symptoms Immunological/Allergic: No Symptoms All Other Systems: Reviewed and Negative - Past Medical History Pertinent Past Medical History: Yes Respiratory History: Other GI Medical History: GERD Psycho-Social History: Depression Other Medical History: MRSA infection to LLE, COVID-19 X 2 - Past Surgical History Past Surgical History: Yes - Social History Smoking Status: Current every day smoker How long have you smoked: years Exposure to second hand smoke: Yes Drug Use: none Patient Lives Alone: No - Nursing Vital Signs Nursing Vital Signs: Initial Vital Signs Temperature 97.6 F 12/08/22 17:58 Pulse Rate 93 H 12/08/22 17:58 Respiratory Rate 20 12/08/22 17:58 Blood Pressure 151/99 12/08/22 17:58 O2 Sat by Pulse Oximetry 99 12/08/22 17:58 Pain Scale Pain Intensity 4 - Physical Exam General Appearance: no apparent distress, alert Eye Exam: PERRL/EOMI, eyes nml inspection Ears, Nose, Throat Exam: normal ENT inspection, TMs normal, pharynx normal, moist mucous membranes Neck Exam: normal inspection, non-tender, supple, full range of motion Respiratory Exam: normal breath sounds, lungs clear, airway intact, No respiratory distress Cardiovascular Exam: regular rate/rhythm, normal heart sounds, normal peripheral pulses Gastrointestinal/Abdomen Exam: soft, normal bowel sounds, No tenderness, No mass Back Exam: normal inspection, normal range of motion, No CVA tenderness, No vertebral tenderness Extremity Exam: normal inspection, normal range of motion, pelvis stable Neurologic Exam: alert, oriented x 3, cooperative, normal mood/affect, nml cerebellar function, nml station & gait, sensation nml, No motor deficits Skin Exam: normal color, warm, dry, No rash Lymphatic Exam: No adenopathy SpO2 Interpretation: normal SpO2: 96 O2 Delivery: Room Air - Course Nursing assessment & vital signs reviewed: Yes - CT Exams Head CT Interpretation: Tele-radiologist Report (CT head negative) Ordered Tests: Active Orders 24 hr Category Date Time Status HEAD WITHOUT CONTRAST [CT] Stat Exams 12/08/22 18:28 Taken CBC W DIFF Stat Lab 12/08/22 18:30 Completed CMP Stat Lab 12/08/22 18:30 Completed POCT GLUCOSE Stat Lab 12/08/22 18:28 Completed TSH [TSH, 3RD Generation] Stat Lab 12/08/22 18:30 Completed UA W/RFX UR CULTURE Stat Lab 12/08/22 19:12 Completed Medication Summary Generic Name Dose Route Start Last Admin Trade Name Freq PRN Reason Stop Dose Admin Sodium Chloride 500 mls @ 500 mls/hr 12/08/22 19:58 12/08/22 20:02 Sodium Chloride 0.9% 500 Ml IV 12/08/22 20:57 500 mls/hr .Q1H ONE Administration Discontinued Medications Generic Name Dose Route Start Last Admin Trade Name Freq PRN Reason Stop Dose Admin Sodium Chloride Confirm 12/08/22 20:01 Sodium Chloride 0.9% 500 Ml Administered 12/08/22 20:02 Dose 500 mls @ ud IV .K-MED ONE Lab/Rad Data: Laboratory Result Diagrams 12/08/22 18:30 12/08/22 18:30 Laboratory Results 12/08/22 12/08/22 12/08/22 Range/Units 19:12 18:30 18:30 WBC 9.6 (4.0-10.5) x10^3/uL RBC 4.90 (4.1-5.6) x10^6/uL Hgb 14.3 (12.5-18.0) g/dL Hct 43.0 (42-50) % MCV 87.8 (78-100) fL MCH 29.2 (26-32) pg MCHC 33.3 (32-36) g/dL RDW 12.8 (11.5-14.0) % Plt Count 283 (150-450) x10^3/uL MPV 10.4 (7.5-11.0) fL Gran % 57.0 (36.0-66.0) % Immature Gran % (Auto) 0.3 (0.00-0.4) % Nucleat RBC Rel Count 0.0 (0.00-0.1) % Eos # (Auto) 0.09 (0-0.5) x10^3/uL Immature Gran # (Auto) 0.03 (0.00-0.03) x10^3u/L Absolute Lymphs (auto) 3.08 (1.0-4.6) x10^3/uL Absolute Monos (auto) 0.82 (0.0-1.3) x10^3/uL Absolute Nucleated RBC 0.00 (0.00-0.01) x10^3u/L Lymphocytes % 32.2 (24.0-44.0) % Monocytes % 8.6 (0.0-12.0) % Eosinophils % 0.9 (0.00-5.0) % Basophils % 1.0 (0.0-0.4) % Absolute Granulocytes 5.45 (1.4-6.9) x10^3/uL Basophils # 0.10 (0-0.4) x10^3/uL Sodium 137 (137-145) mmol/L Potassium 3.8 (3.5-5.1) mmol/L Chloride 105 (98-107) mmol/L Carbon Dioxide 23 (22-30) mmol/L Anion Gap 13.4 (5-15) MEQ/L BUN 21 H (9-20) mg/dL Creatinine 1.13 (0.66-1.25) mg/dL Estimated GFR > 60.0 ML/MIN Glucose 88 (74-106) mg/dL POC Glucometer (74 to 106) mg/dL Calcium 9.9 (8.4-10.2) mg/dL Total Bilirubin 0.40 (0.2-1.3) mg/dL AST 57 (17-59) U/L ALT 76 H (0-50) U/L Alkaline Phosphatase 74 (38-126) U/L Serum Total Protein 7.9 (6.3-8.2) g/dL Albumin 5.0 (3.5-5.0) g/dL TSH 3rd Generation (0.47-4.68) mIU/L Urine Color Yellow (Yellow) Urine Appearance Clear (Clear) Urine pH 5.0 (4.6-8.0) Ur Specific Elkins 1.025 (1.005-1.030) Urine Protein Negative (Negative) Urine Glucose (UA) Negative (Negative) mg/dL Urine Ketones Negative (Negative) Urine Blood Negative (Negative) Urine Nitrite Negative (Negative) Urine Bilirubin Negative (Negative) Urine Urobilinogen 0.2 (0.2) mg/dL Ur Leukocyte Esterase Negative (Negative) U Hyaline Cast (Auto) NONE SEEN (0-2) /LPF Urine Microscopic RBC 0-2 (0-5) /HPF Urine Microscopic WBC 0-2 (0-5) /HPF Ur Epithelial Cells None Seen (None Seen) /HPF Urine Bacteria None Seen (None Seen) /HPF Urine Culture Reflexed NO (NO) Influenza Type A Ag (NEGATIVE) Influenza Type B Ag (NEGATIVE) RSV (PCR) (Negative) SARS-CoV-2 (PCR) (NEGATIVE) 12/08/22 12/08/22 12/08/22 Range/Units 18:30 18:30 18:28 WBC (4.0-10.5) x10^3/uL RBC (4.1-5.6) x10^6/uL Hgb (12.5-18.0) g/dL Hct (42-50) % MCV (78-100) fL MCH (26-32) pg MCHC (32-36) g/dL RDW (11.5-14.0) % Plt Count (150-450) x10^3/uL MPV (7.5-11.0) fL Gran % (36.0-66.0) % Immature Gran % (Auto) (0.00-0.4) % Nucleat RBC Rel Count (0.00-0.1) % Eos # (Auto) (0-0.5) x10^3/uL Immature Gran # (Auto) (0.00-0.03) x10^3u/L Absolute Lymphs (auto) (1.0-4.6) x10^3/uL Absolute Monos (auto) (0.0-1.3) x10^3/uL Absolute Nucleated RBC (0.00-0.01) x10^3u/L Lymphocytes % (24.0-44.0) % Monocytes % (0.0-12.0) % Eosinophils % (0.00-5.0) % Basophils % (0.0-0.4) % Absolute Granulocytes (1.4-6.9) x10^3/uL Basophils # (0-0.4) x10^3/uL Sodium (137-145) mmol/L Potassium (3.5-5.1) mmol/L Chloride (98-107) mmol/L Carbon Dioxide (22-30) mmol/L Anion Gap (5-15) MEQ/L BUN (9-20) mg/dL Creatinine (0.66-1.25) mg/dL Estimated GFR ML/MIN Glucose (74-106) mg/dL POC Glucometer 88 (74 to 106) mg/dL Calcium (8.4-10.2) mg/dL Total Bilirubin (0.2-1.3) mg/dL AST (17-59) U/L ALT (0-50) U/L Alkaline Phosphatase (38-126) U/L Serum Total Protein (6.3-8.2) g/dL Albumin (3.5-5.0) g/dL TSH 3rd Generation 1.590 (0.47-4.68) mIU/L Urine Color (Yellow) Urine Appearance (Clear) Urine pH (4.6-8.0) Ur Specific Elkins (1.005-1.030) Urine Protein (Negative) Urine Glucose (UA) (Negative) mg/dL Urine Ketones (Negative) Urine Blood (Negative) Urine Nitrite (Negative) Urine Bilirubin (Negative) Urine Urobilinogen (0.2) mg/dL Ur Leukocyte Esterase (Negative) U Hyaline Cast (Auto) (0-2) /LPF Urine Microscopic RBC (0-5) /HPF Urine Microscopic WBC (0-5) /HPF Ur Epithelial Cells (None Seen) /HPF Urine Bacteria (None Seen) /HPF Urine Culture Reflexed (NO) Influenza Type A Ag NEGATIVE (NEGATIVE) Influenza Type B Ag NEGATIVE (NEGATIVE) RSV (PCR) NEGATIVE (Negative) SARS-CoV-2 (PCR) NEGATIVE (NEGATIVE) - Progress Progress: improved Progress Note: Patient is a 27-year-old male presents to our ED for evaluation of nonspecific complaints. Patient has a headache, possible COVID. Patient states he feels dehydrated. Patient's complaints are acute. Symptoms are moderate. No significant comorbidities to complicate patient's presentation. Work-up revealed CT head which was negative. CBC CMP are both unremarkable. COVID- negative. GC chlamydia pending. We will call patient with results. Ehlwg-rn-dihe glucose was 88. Urinalysis negative. TSH within normal limits. Patient received IV fluid hydration. No indication for pain medication. No consultations. Patient agrees to follow-up with his primary care doctor within 48 hours for reevaluation. Level of EM service provided was moderate. Complexity of medical problem is moderate. Complex of data reviewed and analyzed is low. Patient served as independent historian. Complication risk of morbidity/mortality of patient management is moderate Patient received IV fluids. Patient feels better. He voices no other complaints or concerns at this time. Time spent during discharge is approximately 10 minutes. Patient agrees to follow-up with his primary care doctor within 48 hours for reevaluation. 12/08/22 20:49 12/08/22 20:53 Counseled pt/family regarding: lab results, diagnosis, need for follow-up, rad results Medical Desision Making - Diagnostic Testing Diagnostic Testing: Diagnostic tests were ordered,analyzed, and reviewed by me and used in my medical decision making for this patient. Radiologic studies (if ordered) were read by me initially then discussed with franklin reyna radiologist . - Departure Departure Disposition: Home Clinical Impression: Malaise, Headache, Dysuria Condition: Stable Critical Care Time: No Referrals: SANTOS ESPINAL NP [Primary Care Provider] - Follow up/PCP as directed Additional Instructions: Discharge/Care Plan CAMRYN BELCHER JYOTI was seen on 12/08/22 in the Emergency Room. The patient was counseled regarding Diagnosis,Lab results, Imaging studies, need for follow up and when to return to the Emergency Room. Prescriptions given: Discharge Note I have spoken with the patient and/or caregivers. I have explained the patient's condition, diagnosis and treatment plan based on the information available to me at this time. I have answered the patient's and/or caregiver's questions and addressed any concerns. The patient and/or caregivers have as good understanding of the patient's diagnosis, condition and treatment plan as can be expected at this point. The vital signs have been stable. The patient's condition is stable and appropriate for discharge from the emergency department. The patient will pursue further outpatient evaluation with the primary care physician or other designated or consulting physician as outlined in the discharge instructions. The patient and/or caregivers are agreeable to this plan of care and follow-up instructions have been explained in detail. The patient and/or caregivers have received these instruction. The patient/and or caregivers are aware that any significant change in condition or worsening of symptoms should prompt an immediate return to this or the closest emergency department or call 911.
[2022-12-08 21:09] VITALS: BP 112/69; PULSE 82; O2SAT 98
[2022-12-08 21:46] LABS: CHLAMYDIA DNA NOT DETECTED (NEGATIVE); GC DNA Probe NOT DETECTED (NEGATIVE)
--- NOTE | 2022-12-09 08:37 | XRAY ---
Indication: Headache 6 months. No known injury. Multiple contiguous axial images obtained through the head without contrast. Comparison: None Normal appearing brain parenchyma, ventricles, and bony calvarium. Visualized paranasal sinuses and mastoid air cells are clear. Impression: Normal CT head without contrast exam.
== END 2022-12-08 21:09 | disposition home or self-care (01) ==
LOC: ED 17:54
DX: R51.9 Headache, unspecified (principal); R53.81 Other malaise; R30.0 Dysuria; Z79.899 Other long term (current) drug therapy; Z28.310 Unvaccinated for COVID-19; Z86.16 Personal history of COVID-19; Z72.0 Tobacco use
CPT/HCPCS: 0241U; 36415; 70450; 80053; 81001; 82947; 84443; 85025; 87491; 87591; 99283

== ENCOUNTER 2023-01-13 16:52 | Emergency (ER) | payer MEDICAID, OTHER ==
[2023-01-13 17:13] VITALS: BP 118/65; O2SAT 99
--- NOTE | 2023-01-13 19:11 | ERPHSYRPT ---
- History of Present Illness Time Seen by Provider: 01/13/23 19:08 Source: patient Exam Limitations: no limitations Patient Subjective Stated Complaint: pt here for pain to right index finger and left middle finger for 3-4 days, he states he has been working on [employer] ground equipment Triage Nursing Assessment: pt alert, walked in, resp easy,face mask in pplace, has redness to right finger, adn puncture wound to left finger Physician History: Patient is a 27-year-old male presents to our ED for evaluation of right index finger. Patient states that he impaled a wood splinter underneath his fingernail. Injury occurred about 3 to 4 days ago. The tip of the finger is now tender and swollen. No blunt trauma. No fever. Patient voices no other complaints or concerns at this time. Portions of this note were created with voice recognition technology. There may be grammatical, spelling, punctuation or sound alike errors Portions of this note were created with voice recognition technology. There may be grammatical, spelling, punctuation or sound alike errors Timing/Duration: day(s) (3 to 4 days) Severity: moderate Modifying Factors: Improves With: nothing Associated Symptoms: denies symptoms Allergies/Adverse Reactions: sulfamethoxazole [From Bactrim] Allergy (Unknown, Verified 01/13/23 17:09) trimethoprim [From Bactrim] Allergy (Unknown, Verified 01/13/23 17:09) Hx Tetanus, Diphtheria Vaccination/Date Given: No Hx Influenza Vaccination/Date Given: No Hx Pneumococcal Vaccination/Date Given: No Immunizations Up to Date: Yes Travel Risk - International Travel Have you traveled outside of the country in past 3 weeks: No - Coronavirus Screening Are you exhibiting any of the following symptoms?: No Close contact with a COVID-19 positive Pt in past 14-21 Days: No - Vaccine Status Have you recieved a Covid-19 vaccination: No - Review of Systems Constitutional: No Symptoms, No Fever, No Chills Eyes: No Symptoms Ears, Nose, & Throat: No Symptoms Respiratory: No Symptoms, No Cough, No Dyspnea Cardiac: No Symptoms, No Chest Pain, No Edema, No Syncope Abdominal/Gastrointestinal: No Symptoms, No Abdominal Pain, No Nausea, No Vomiting, No Diarrhea Genitourinary Symptoms: No Symptoms, No Dysuria Musculoskeletal: No Symptoms, No Back Pain, No Neck Pain Skin: No Symptoms, No Rash Neurological: No Symptoms, No Dizziness, No Focal Weakness, No Sensory Changes Psychological: No Symptoms Endocrine: No Symptoms Hematologic/Lymphatic: No Symptoms Immunological/Allergic: No Symptoms All Other Systems: Reviewed and Negative - Past Medical History Pertinent Past Medical History: Yes Respiratory History: Other GI Medical History: GERD Psycho-Social History: Depression Other Medical History: MRSA infection to LLE, COVID-19 X 2 - Past Surgical History Past Surgical History: Yes - Social History Smoking Status: Current every day smoker How long have you smoked: years Exposure to second hand smoke: Yes Drug Use: none Patient Lives Alone: No - Nursing Vital Signs Nursing Vital Signs: Initial Vital Signs Temperature 97.3 F 01/13/23 17:12 Pulse Rate 79 01/13/23 17:12 Respiratory Rate 18 01/13/23 17:12 Blood Pressure 118/65 01/13/23 17:12 O2 Sat by Pulse Oximetry 99 01/13/23 17:12 Pain Scale Pain Intensity 10 - Physical Exam General Appearance: no apparent distress, alert Eye Exam: PERRL/EOMI, eyes nml inspection Ears, Nose, Throat Exam: normal ENT inspection, TMs normal, pharynx normal, moist mucous membranes Neck Exam: normal inspection, non-tender, supple, full range of motion Respiratory Exam: normal breath sounds, lungs clear, airway intact, No respiratory distress Cardiovascular Exam: regular rate/rhythm, normal heart sounds, normal peripheral pulses Gastrointestinal/Abdomen Exam: soft, normal bowel sounds, No tenderness, No mass Back Exam: normal inspection, normal range of motion, No CVA tenderness, No vertebral tenderness Extremity Exam: normal inspection, normal range of motion, pelvis stable, other (There is a splinter under the fingernail of the right fifth digit. There appears to be a infection adjacent to this area. The involved area is neurovascular intact distally. Compartments are soft. Cap refill less than 2 seconds) Neurologic Exam: alert, oriented x 3, cooperative, normal mood/affect, nml cerebellar function, nml station & gait, sensation nml, No motor deficits Skin Exam: normal color, warm, dry, No rash Lymphatic Exam: No adenopathy SpO2 Interpretation: normal SpO2: 99 O2 Delivery: Room Air - Course Nursing assessment & vital signs reviewed: Yes - Radiology Exams Hand X-ray Interpretation: Interpreted by me (No fracture dislocation of right hand) Other X-ray Interpretation: Interpreted by me (No fracture dislocation of left hand) Ordered Tests: Active Orders 24 hr Category Date Time Status HAND (MINIMUM 3 VIEWS) Stat Exams 01/13/23 17:14 Taken HAND (MINIMUM 3 VIEWS) Stat Exams 01/13/23 17:15 Taken Medication Summary Discontinued Medications Generic Name Dose Route Start Last Admin Trade Name Clarissa PRN Reason Stop Dose Admin Ceftriaxone Sodium 1,000 mg 01/13/23 19:21 Ceftriaxone Sodium 1000 Mg Inj Vial IM 01/13/23 19:22 STAT ONE Ceftriaxone Sodium Confirm 01/13/23 19:31 Ceftriaxone Sodium 1000 Mg Inj Vial Administered 01/13/23 19:32 Dose 1,000 mg .ROUTE .STK-MED ONE Ketorolac Tromethamine 30 mg 01/13/23 19:29 Ketorolac Tromethamine 30 Mg/Ml Inj IM 01/13/23 19:30 STAT ONE Ketorolac Tromethamine Confirm 01/13/23 19:30 Ketorolac Tromethamine 30 Mg/Ml Inj Administered 01/13/23 19:31 Dose 30 mg .ROUTE .STK-MED ONE Lidocaine HCl Confirm 01/13/23 19:31 Lidocaine Hcl 1% 20 Ml Mdv 20 Ml Ml Administered 01/13/23 19:32 Dose 1 ml .ROUTE .STK-MED ONE - Progress Progress: improved Progress Note: 27-year-old male presents to our ED with foreign body impaled into the right index finger. X-rays negative for fracture dislocation. Physical exam reveals wood splinter underneath the nail plate of the right index finger. No lymphangitis. No cellulitis. Some tenderness to the tip of the patient's finger. Complexity of problems addressed is low. Acute problem uncomplicated. No critical care time Complexity of data reviewed and analyzed is moderate. Dr. Lambert independently reviewed the x-rays of both hands. No fracture dislocations. No foreign bodies observed. The splinter is observed on physical exam however not seen on the x- ray. Risk of complication and or risk of morbidity/mortality patient management is moderate. Patient received IM pain medication as well as intramuscular injection of antibiotic. A prescription for Keflex was forwarded to patient's pharmacy. Case discussed with Dr. Steinberg orthopedic hand surgeon who states he will see patient tomorrow in his office at 8 AM. Office number is [phone]. Patient agrees to follow-up as discussed. Patient voices no other complaints or concerns at this time. Portions of this note were created with voice recognition technology. There may be grammatical, spelling, punctuation or sound alike errors 01/13/23 19:41 Counseled pt/family regarding: diagnosis, need for follow-up - Departure Departure Disposition: Home Clinical Impression: Foreign body finger Condition: Stable Critical Care Time: No Referrals: SANTOS ESPINAL NP [Primary Care Provider] - Follow up/PCP as directed ALEN DICKENS [NON-STAFF PHY W/O PRIVILEGES] - Follow up/PCP as directed Additional Instructions: Discharge/Care Plan CAMRYN BELCHER JYOTI was seen on 01/13/23 in the Emergency Room. The patient was counseled regarding Diagnosis,Lab results, Imaging studies, need for follow up and when to return to the Emergency Room. Prescriptions given: Discharge Note I have spoken with the patient and/or caregivers. I have explained the patient's condition, diagnosis and treatment plan based on the information available to me at this time. I have answered the patient's and/or caregiver's questions and addressed any concerns. The patient and/or caregivers have as good understanding of the patient's diagnosis, condition and treatment plan as can be expected at this point. The vital signs have been stable. The patient's condition is stable and appropriate for discharge from the emergency department. The patient will pursue further outpatient evaluation with the primary care physician or other designated or consulting physician as outlined in the discharge instructions. The patient and/or caregivers are agreeable to this plan of care and follow-up instructions have been explained in detail. The patient and/or caregivers have received these instruction. The patient/and or caregivers are aware that any significant change in condition or worsening of symptoms should prompt an immediate return to this or the closest emergency department or call 911. Prescriptions: Cephalexin Mh 500 mg [Keflex 500 mg] 500 mg PO QID #28 cap
[2023-01-13] MEDS ORDERED: Rocephin 1000 MG INJ IM ONE (19:21)
[2023-01-13] MEDS ORDERED: TORAdol 30 mg Injection IM ONE (19:29)
[2023-01-13] MEDS ORDERED: TORAdol 30 mg Injection ONE (19:30)
[2023-01-13] MEDS ORDERED: Rocephin 1000 MG INJ ONE (19:31)
[2023-01-13] MEDS ORDERED: XYLOCAINE 1% HCL 20 ML MDV ONE (19:31)
[2023-01-13 19:53] VITALS: PULSE 97
--- NOTE | 2023-01-14 08:40 | XRAY ---
Indication: Foreign body. Comparison: None 3 view left hand negative for radiopaque foreign body. No bony, articular, or soft tissue abnormalities.
--- NOTE | 2023-01-14 08:40 | XRAY ---
Indication: Foreign body. Comparison: None 3 view right hand negative for radiopaque foreign body. No bony, articular, or soft tissue abnormalities.
== END 2023-01-13 19:53 | disposition home or self-care (01) ==
LOC: ED 16:52
DX: S60.450A Superficial foreign body of right index finger, initial encounter (principal); M79.644 Pain in right finger(s); M79.645 Pain in left finger(s); Z28.310 Unvaccinated for COVID-19; Z86.16 Personal history of COVID-19; Z72.0 Tobacco use
CPT/HCPCS: 73130; 96372; 99283; J0696; J1885

== ENCOUNTER 2023-01-16 22:01 | Emergency (ER) | payer MEDICAID ==
[2023-01-16 22:13] VITALS: O2SAT 98
--- NOTE | 2023-01-16 22:13 | ERPHSYRPT ---
- History of Present Illness Time Seen by Provider: 01/16/23 22:08 Source: patient Exam Limitations: no limitations Physician History: Patient is 27-year-old male was in the emergency room with foreign body in his right index finger for 5 days ago. Patient was sent to the hand surgeon and he removed small wooden particle from the tip of his finger and started him on c ephalexin antibiotic which patient has taken it for 3 days. Today patient started having some nausea vomiting some chills so he got concerned about his index finger and he came to the emergency room. In the emergency room patient was afebrile did not have any other symptoms. Patient has a little bit tenderness on the tip of his right index finger. Severity of Pain-Max: none Severity of Pain-Current: none Extremities Pain Location: 2nd finger: right Associated Symptoms: none Body Map: 1 - puncture wound on right index finger- old Allergies/Adverse Reactions: sulfamethoxazole [From Bactrim] Allergy (Unknown, Verified 01/13/23 17:09) trimethoprim [From Bactrim] Allergy (Unknown, Verified 01/13/23 17:09) Hx Tetanus, Diphtheria Vaccination/Date Given: No Hx Influenza Vaccination/Date Given: No Hx Pneumococcal Vaccination/Date Given: No Travel Risk - Vaccine Status Have you recieved a Covid-19 vaccination: No - Review of Systems Constitutional: No Symptoms Eyes: No Symptoms Ears, Nose, & Throat: No Symptoms Respiratory: No Symptoms Cardiac: No Symptoms Abdominal/Gastrointestinal: No Symptoms Genitourinary Symptoms: No Symptoms Musculoskeletal: No Symptoms Skin: Induration (right index finger tip) Neurological: No Symptoms Psychological: No Symptoms Endocrine: No Symptoms - Past Medical History Pertinent Past Medical History: Yes Respiratory History: Other GI Medical History: GERD Psycho-Social History: Depression Other Medical History: MRSA infection to LLE, COVID-19 X 2 - Past Surgical History Past Surgical History: Yes - Social History Smoking Status: Current every day smoker How long have you smoked: years Exposure to second hand smoke: Yes Drug Use: none Patient Lives Alone: No - Physical Exam General Appearance: no apparent distress Eyes, Ears, Nose, Throat Exam: normal ENT inspection Neck Exam: normal inspection Cardiovascular/Respiratory Exam: chest non-tender Abdominal Exam: non-tender Shoulder Exam: normal inspection Elbow/Forearm Exam: normal inspection Wrist Exam: normal inspection Hand Exam: normal ROM, soft tissue tenderness (right index finger tip), stiffness, No asymmetry, No bone tenderness, No deformity, No infection, No laceration, No limited ROM, No nail injury, No swelling Neuro/Tendon Exam: normal sensation Mental Status Exam: alert, oriented x 3 Skin Exam: normal color SpO2 Interpretation: normal SpO2: 98 O2 Delivery: Room Air Procedures - Splinting Time of Procedure: 22:12 Location of Splint: Right (index finger) Type of Splint: Foam Pad Finger Splint Splint Applied By: ED Nurse Pre-Proc Neuro Vasc Exam: normal - Course Nursing assessment & vital signs reviewed: Yes - Progress Progress: improved Counseled pt/family regarding: diagnosis, need for follow-up (with hand surgeon on ) Medical Desision Making - Diagnostic Testing Diagnostic test were ordered, analyzed, and reviewed by me: No - Risk of complications Low Risk: Low risk of morbidity from additional dx testing or treatment - Departure Departure Disposition: Home Clinical Impression: Foreign body finger Condition: Stable Critical Care Time: No Referrals: SANTOS ESPINAL NP [Primary Care Provider] - Follow up/PCP as directed (Follow up with Hand surgeon on on january 20, 2023) Instructions: Bruising Under the Nail, Common Finger Injuries ED Additional Instructions: Discharge/Care Plan CAMRYN BELCHER was seen on 01/16/23 in the Emergency Room. The patient was counseled regarding Diagnosis,Lab results, Imaging studies, need for follow up and when to return to the Emergency Room. Prescriptions given: Discharge Note I have spoken with the patient and/or caregivers. I have explained the patient's condition, diagnosis and treatment plan based on the information available to me at this time. I have answered the patient's and/or caregiver's questions and addressed any concerns. The patient and/or caregivers have as good understanding of the patient's diagnosis, condition and treatment plan as can be expected at this point. The vital signs have been stable. The patient's condition is stable and appropriate for discharge from the emergency department. The patient will pursue further outpatient evaluation with the primary care physician or other designated or consulting physician as outlined in the discharge instructions. The patient and/or caregivers are agreeable to this plan of care and follow-up instructions have been explained in detail. The patient and/or caregivers have received these instruction. The patient/and or caregivers are aware that any significant change in condition or worsening of symptoms should prompt an immediate return to this or the closest emergency department or call 911. CAMRYN BELCHER was seen on 01/16/23 n the Emergency Room. At that time you were treated for an emergent condition, during your visit Laboratory, Radiology and/or other procedures may have been ordered. It is very important that you follow-up with your Primary Care Physician SANTOS ESPINAL within the next 24-48 hours to review your Emergency Room visit and the final results of testing that was ordered. Some test results such as Urine Cultures, Blood Cultures, and other cultures if ordered will not be finalized for 24-48 hours. If you do not have a Primary Care Provider please call the medical records department at [phone] ext [phone] to obtain a copy of your results or you may sign into our patient portal to obtain these results by visiting us @ [email or web address] and completing the following steps: 1. Click on the Patient Portal link 2. Click the Patient Self Enrollment Link to complete the enrollment form and entering your 3. Once the enrollment form is completed you will receive an email with a temporary ID and password at the email address you provided. 4. Next choose a user name and password. Your user name must be at least 4 characters long and your password must be at least 4 characters long. 5. Choose a security question from the list and provide your answer to the question. If you already have signed into the Health Portal you may access your Health Care Information 16/05 by the following steps: 1. Login to our website @ [email or web address] 2. Enter your original user name and password. FAQS The [facility] Health Portal is an online tool that contains your Lab Results, Radiology Reports, Visit History, Discharge Instructions and Health Summary Lab and Radiology Results will not be available for 72 hours on the portal. The Portal is a secure site, passwords are encryted and URLs are re-written so t hey cannot be copied and pasted. You and authorized family members are the only ones who can access your Portal. Also there is a timeout feature that protects your information if you leave the Portal page open. If you have technical difficulty please use the Contact Us link on the page this will allow you to submit any questions you have regarding the Portal or you may contact the Medical Record Department at [phone] ext [phone].
[2023-01-16 22:15] VITALS: BP 152/95; PULSE 82
== END 2023-01-16 22:24 | disposition home or self-care (01) ==
LOC: ED 22:01
DX: S60.450D Superficial foreign body of right index finger, subsequent encounter (principal); M79.644 Pain in right finger(s); Z28.310 Unvaccinated for COVID-19; Z72.0 Tobacco use; Z86.16 Personal history of COVID-19
CPT/HCPCS: 99281

== ENCOUNTER 2023-05-22 23:33 | Emergency (ER) | payer MEDICAID | END 2023-05-23 00:03 | disposition left against medical advice (07) | LOC: ED 23:33 | DX: Z53.21 Procedure and treatment not carried out due to patient leaving prior to being seen by health care provider (principal) ==

== ENCOUNTER 2023-05-29 19:01 | Emergency (ER) | payer MEDICAID ==
[2023-05-29 19:37] VITALS: TEMP 97.7; O2SAT 96
--- NOTE | 2023-05-29 19:59 | ERPHSYRPT ---
- History of Present Illness Time Seen by Provider: 05/29/23 19:55 Historian: patient, family Exam Limitations: no limitations Patient Subjective Stated Complaint: headache and chest tightness Triage Nursing Assessment: pt to ED c/o DENG chronic and chest tightness x 1 week. no recent changes in health otherwise, rates 8/10 headache that feels like constant throbbing and heaviness in sinuses. no chest pain. no cardiac hx. heart sounds clear. A&Ox4. Physician History: pt has chest pressure x 1 week and chronic headaches without recent w/u for either one. No hx trauma or blood thinner. No prior Cardiac condition known. Discussed risk/benefit of EKG, Trop ,D Dimer, CBC, CMP, CXR, UA, celeste, lipase, and and pt wishes to proceed. these are ordered and results discussed. he decided not to have ct head since he had one earlier this yr for same and will wait and have MRI with PCP as this is same level headache as usual without change. Hx independently collaborated with as separate source in ER. He is a vaper , + family Hx, and some transient hptn. no prior cardiac dx known. cardiac score is 3 and pt percs out for PE and not suspected so no D dimer ( not SOBreath) Timing/Duration: intermittent, resolved prior to arrival Activities at Onset: none Quality: dullness, pressure Location: substernal Chest Pain Radiation: no radiation Severity of Pain-Max: moderate Severity of Pain-Current: moderate Modifying Factors: Improves With: nothing Associated Symptoms: headache Prior Chest Pain/Cardiac Workup: no prior cardiac workup Nitro Today/Relief: no nitro taken today Aspirin Treatment Today: 81 mg x 4, provided by ED Allergies/Adverse Reactions: sulfamethoxazole [From Bactrim] Allergy (Unknown, Verified 05/29/23 19:03) trimethoprim [From Bactrim] Allergy (Unknown, Verified 05/29/23 19:03) Hx Tetanus, Diphtheria Vaccination/Date Given: Yes Hx Influenza Vaccination/Date Given: No Hx Pneumococcal Vaccination/Date Given: No Immunizations Up to Date: No Travel Risk - International Travel Have you traveled outside of the country in past 3 weeks: No - Coronavirus Screening Are you exhibiting any of the following symptoms?: Yes Symptoms: Headaches/Body Aches/Fatigue Close contact with a COVID-19 positive Pt in past 14-21 Days: No - Vaccine Status Have you recieved a Covid-19 vaccination: No [employer]: Unknown - Vaccination Dates Dates if Unknown: unk - Review of Systems Constitutional: No Fever, No Chills Eyes: No Symptoms Ears, Nose, & Throat: No Symptoms Respiratory: No Cough, No Dyspnea Cardiac: Chest Pain, No Edema, No Syncope Abdominal/Gastrointestinal: No Abdominal Pain, No Nausea, No Vomiting, No Diarrhea Genitourinary Symptoms: No Dysuria Musculoskeletal: No Back Pain, No Neck Pain Skin: No Rash Neurological: No Dizziness, No Focal Weakness, No Sensory Changes Psychological: No Symptoms Endocrine: No Symptoms Hematologic/Lymphatic: No Symptoms Immunological/Allergic: No Symptoms All Other Systems: Reviewed and Negative - Past Medical History Pertinent Past Medical History: Yes Respiratory History: Other GI Medical History: GERD Psycho-Social History: Depression Other Medical History: MRSA infection to LLE, COVID-19 X 2 - Past Surgical History Past Surgical History: Yes - Social History Smoking Status: Current every day smoker How long have you smoked: years Exposure to second hand smoke: No Drug Use: none Patient Lives Alone: No - Nursing Vital Signs Nursing Vital Signs: Initial Vital Signs Temperature 97.7 F 05/29/23 19:05 Pulse Rate 79 05/29/23 19:05 Respiratory Rate 18 05/29/23 19:05 Blood Pressure 136/89 05/29/23 19:05 O2 Sat by Pulse Oximetry 96 05/29/23 19:05 Pain Scale Pain Intensity 8 - Physical Exam General Appearance: no apparent distress, alert Eye Exam: PERRL/EOMI, eyes nml inspection Ears, Nose, Throat Exam: normal ENT inspection, moist mucous membranes Neck Exam: normal inspection, non-tender, supple, full range of motion Respiratory Exam: normal breath sounds, lungs clear, No respiratory distress Cardiovascular Exam: regular rate/rhythm, normal heart sounds Gastrointestinal/Abdomen Exam: soft, No tenderness, No mass Rectal Exam: deferred Back Exam: normal inspection, No CVA tenderness, No vertebral tenderness Extremity Exam: normal inspection, normal range of motion Neurologic Exam: alert, oriented x 3, cooperative, normal mood/affect, sensation nml, No motor deficits Skin Exam: normal color, warm, dry SpO2 Interpretation: normal SpO2: 96 O2 Delivery: Room Air - Course Nursing assessment & vital signs reviewed: Yes Ordered Tests: Active Orders 24 hr Category Date Time Status EKG-ER Only STAT Care 05/29/23 19:59 Active IV Insertion STAT Care 05/29/23 19:59 Active CHEST 1 VIEW (PORTABLE) Stat Exams 05/29/23 20:00 Taken AMYLASE Stat Lab 05/29/23 20:02 Completed CBC W DIFF Stat Lab 05/29/23 20:02 Completed CMP Stat Lab 05/29/23 20:02 Completed LIPASE Stat Lab 05/29/23 20:02 Completed Lactic Acid Stat Lab 05/29/23 20:23 Completed TROPONIN Q4H Lab 05/29/23 20:02 Completed TROPONIN Q4H Lab 05/30/23 00:00 Ordered TROPONIN Q4H Lab 05/30/23 04:00 Ordered UA W/RFX UR CULTURE Stat Lab 05/29/23 20:24 Completed Medication Summary Generic Name Dose Route Start Last Admin Trade Name Freq PRN Reason Stop Dose Admin Sodium Chloride 1,000 mls @ 100 mls/hr 05/29/23 20:00 05/29/23 20:21 Sodium Chloride 0.9% 1000 Ml IV 06/28/23 19:59 100 mls/hr .Q10H MARILIA Administration Discontinued Medications Generic Name Dose Route Start Last Admin Trade Name Freq PRN Reason Stop Dose Admin Aspirin 324 mg 05/29/23 22:32 Aspirin 81 Mg Tab.Chew PO 05/29/23 22:33 STAT ONE Lab/Rad Data: Laboratory Result Diagrams 05/29/23 20:02 05/29/23 20:02 Laboratory Results 05/29/23 05/29/23 05/29/23 Range/Units 20:24 20:23 20:02 WBC (4.0-10.5) x10^3/uL RBC (4.1-5.6) x10^6/uL Hgb (12.5-18.0) g/dL Hct (42-50) % MCV (78-100) fL MCH (26-32) pg MCHC (32-36) g/dL RDW (11.5-14.0) % Plt Count (150-450) x10^3/uL MPV (7.5-11.0) fL Gran % (36.0-66.0) % Immature Gran % (Auto) (0.00-0.4) % Nucleat RBC Rel Count (0.00-0.1) % Eos # (Auto) (0-0.5) x10^3/uL Immature Gran # (Auto) (0.00-0.03) x10^3u/L Absolute Lymphs (auto) (1.0-4.6) x10^3/uL Absolute Monos (auto) (0.0-1.3) x10^3/uL Absolute Nucleated RBC (0.00-0.01) x10^3u/L Lymphocytes % (24.0-44.0) % Monocytes % (0.0-12.0) % Eosinophils % (0.00-5.0) % Basophils % (0.0-0.4) % Absolute Granulocytes (1.4-6.9) x10^3/uL Basophils # (0-0.4) x10^3/uL Sodium (137-145) mmol/L Potassium (3.5-5.1) mmol/L Chloride (98-107) mmol/L Carbon Dioxide (22-30) mmol/L Anion Gap (5-15) MEQ/L BUN (9-20) mg/dL Creatinine (0.66-1.25) mg/dL Estimated GFR ML/MIN Glucose (74-106) mg/dL Lactic Acid 1.4 (0.4-2.0) Calcium (8.4-10.2) mg/dL Total Bilirubin (0.2-1.3) mg/dL AST (17-59) U/L ALT (0-50) U/L Alkaline Phosphatase (38-126) U/L Troponin I < 0.012 (0.000-0.034) ng/mL Serum Total Protein (6.3-8.2) g/dL Albumin (3.5-5.0) g/dL Amylase (30-110) U/L Lipase (23-300) U/L Urine Color Yellow (Yellow) Urine Appearance Clear (Clear) Urine pH 6.5 (4.6-8.0) Ur Specific [place] 1.025 (1.005-1.030) Urine Protein Negative (Negative) Urine Glucose (UA) Negative (Negative) mg/dL Urine Ketones Negative (Negative) Urine Blood Negative (Negative) Urine Nitrite Negative (Negative) Urine Bilirubin Negative (Negative) Urine Urobilinogen 0.2 (0.2) mg/dL Ur Leukocyte Esterase Trace A (Negative) U Hyaline Cast (Auto) NONE SEEN (0-2) /LPF Urine Microscopic RBC 0-2 (0-5) /HPF Urine Microscopic WBC 3-5 (0-5) /HPF Ur Epithelial Cells None Seen (None Seen) /HPF Urine Bacteria None Seen (None Seen) /HPF Urine Culture Reflexed NO (NO) 05/29/23 05/29/23 Range/Units 20:02 20:02 WBC 7.6 (4.0-10.5) x10^3/uL RBC 4.81 (4.1-5.6) x10^6/uL Hgb 14.2 (12.5-18.0) g/dL Hct 43.1 (42-50) % MCV 89.6 (78-100) fL MCH 29.5 (26-32) pg MCHC 32.9 (32-36) g/dL RDW 12.7 (11.5-14.0) % Plt Count 261 (150-450) x10^3/uL MPV 11.3 H (7.5-11.0) fL Gran % 44.6 (36.0-66.0) % Immature Gran % (Auto) 0.3 (0.00-0.4) % Nucleat RBC Rel Count 0.0 (0.00-0.1) % Eos # (Auto) 0.14 (0-0.5) x10^3/uL Immature Gran # (Auto) 0.02 (0.00-0.03) x10^3u/L Absolute Lymphs (auto) 3.30 (1.0-4.6) x10^3/uL Absolute Monos (auto) 0.65 (0.0-1.3) x10^3/uL Absolute Nucleated RBC 0.00 (0.00-0.01) x10^3u/L Lymphocytes % 43.7 (24.0-44.0) % Monocytes % 8.6 (0.0-12.0) % Eosinophils % 1.9 (0.00-5.0) % Basophils % 0.9 (0.0-0.4) % Absolute Granulocytes 3.37 (1.4-6.9) x10^3/uL Basophils # 0.07 (0-0.4) x10^3/uL Sodium 141 (137-145) mmol/L Potassium 4.3 (3.5-5.1) mmol/L Chloride 108 H (98-107) mmol/L Carbon Dioxide 24 (22-30) mmol/L Anion Gap 13.3 (5-15) MEQ/L BUN 20 (9-20) mg/dL Creatinine 1.34 H (0.66-1.25) mg/dL Estimated GFR > 60.0 ML/MIN Glucose 118 H (74-106) mg/dL Lactic Acid (0.4-2.0) Calcium 9.3 (8.4-10.2) mg/dL Total Bilirubin 0.30 (0.2-1.3) mg/dL AST 37 (17-59) U/L ALT 71 H (0-50) U/L Alkaline Phosphatase 91 (38-126) U/L Troponin I (0.000-0.034) ng/mL Serum Total Protein 6.8 (6.3-8.2) g/dL Albumin 4.1 (3.5-5.0) g/dL Amylase 60 (30-110) U/L Lipase 114 (23-300) U/L Urine Color (Yellow) Urine Appearance (Clear) Urine pH (4.6-8.0) Ur Specific [place] (1.005-1.030) Urine Protein (Negative) Urine Glucose (UA) (Negative) mg/dL Urine Ketones (Negative) Urine Blood (Negative) Urine Nitrite (Negative) Urine Bilirubin (Negative) Urine Urobilinogen (0.2) mg/dL Ur Leukocyte Esterase (Negative) U Hyaline Cast (Auto) (0-2) /LPF Urine Microscopic RBC (0-5) /HPF Urine Microscopic WBC (0-5) /HPF Ur Epithelial Cells (None Seen) /HPF Urine Bacteria (None Seen) /HPF Urine Culture Reflexed (NO) - Progress Progress: improved, re-examined Air Movement: good Progress Note: 05/29/23 22:33 Cardiac score is 3 0 for normal EKG, 2 for 3 risk factors - (family hx, obesity, hptn and vaping), 0 for age, 0 for trop. and pt is in the category for low risk with neg tropx1 and could be released. I offered admission but pt wishes to go on to work and has the capacity to make this choice which is also in line with the heart score protocol. He has been advised and understands that there still may be cardiac disease adn he still needs the workup with his Dr. and will return if further symptoms. The headache has resolved and he will see neuro for this. Blood Culture(s) Obtained: No Antibiotics given: No Counseled pt/family regarding: lab results, diagnosis, need for follow-up, rad results Medical Desision Making - Independent Historian Additional History obtained from: Family - Discussion of managment Reviewed:: Test results, Need for additional workup - Diagnostic Testing Diagnostic test were ordered, analyzed, and reviewed by me: Yes Radiological Interpretation: Reviewed by me - Risk of complications Low Risk: Low risk of morbidity from additional dx testing or treatment The pt has a high risk of morbidity or mortality based on: Decision regarding hospitilization or escalation of hosp level of care - Departure Departure Disposition: Home Clinical Impression: Headache, Chest pain, elevated LFT and RFT Condition: Good Critical Care Time: No Referrals: SANTOS ESPINAL NP [Primary Care Provider] - Follow up/PCP as directed Instructions: Headache, Adult (DC), Chest Pain (DC), Chest Pain, Adult ED, Chronic Kidney Disease (DC) Additional Instructions: see your Dr. to complete a cardiac workup and for a neuro headache workup. You can still have cardiac disease and get a heart attack even though the EKG and blood test were normal and you fit a lower score category Your kidney test and liver test is a little elevated so see the Dr. to check that as well. return meantime if further chest pain, trouble breathing dizziness or any other concerns.
[2023-05-29] MEDS ORDERED: Sodium Chloride 0.9% 1000 ML 1,000 ML IV SCH (20:00)
[2023-05-29 20:04] LABS: Absolute Neutrophil Ct (ANC) 3.37 x10^3/uL (1.4-6.9); BASOPHIL % 0.9 % (0.0-0.4); Basophil (Absolute #) 0.07 x10^3/uL (0-0.4); Eosinophil % 1.9 % (0.00-5.0); Eosinophil (Absolute #) 0.14 x10^3/uL (0-0.5); Hematocrit 43.1 % (42-50); Hemoglobin 14.2 g/dL (12.5-18.0); IMMATURE GRAN # 0.02 x10^3u/L (0.00-0.03); IMMATURE GRAN % 0.3 % (0.00-0.4); Lymphocytes % 43.7 % (24.0-44.0); Mean Cell Volume 89.6 fL (78-100); Mean Corpuscular Hemoglobin 29.5 pg (26-32); Mean Corpuscular Hgb Concent. 32.9 g/dL (32-36); Mean Platelet Volume 11.3 fL (7.5-11.0); Monocyte (Absolute #) 0.65 x10^3/uL (0.0-1.3); Monocytes % 8.6 % (0.0-12.0); Neutrophil % 44.6 % (36.0-66.0); Platelet Count 261 x10^3/uL (150-450); Red Blood Count 4.81 x10^6/uL (4.1-5.6); Red Cell Distribution Width 12.7 % (11.5-14.0); White Blood Count 7.6 x10^3/uL (4.0-10.5)
[2023-05-29 20:14] VITALS: BP 134/58; PULSE 86; RESP 19
[2023-05-29 20:17] LABS: ALBUMIN 4.1 g/dL (3.5-5.0); ALKALINE PHOSPHATASE 91 U/L (38-126); AMYLASE 60 U/L (30-110); ANION GAP 13.3 MEQ/L (5-15); BLOOD UREA NITROGEN 20 mg/dL (9-20); CHLORIDE 108 mmol/L (98-107); Calcium 9.3 mg/dL (8.4-10.2); Carbon Dioxide 24 mmol/L (22-30); Creatinine 1 1.34 mg/dL (0.66-1.25); EST GLOMERULAR FILTRATION RATE > 60.0 ML/MIN; Glucose 118 mg/dL (74-106); LIPASE 114 U/L (23-300); Potassium 4.3 mmol/L (3.5-5.1); SGOT/AST 37 U/L (17-59); SGPT/ALT 71 U/L (0-50); SODIUM 141 mmol/L (137-145); Total Protein 6.8 g/dL (6.3-8.2)
[2023-05-29] MEDS ORDERED: Sodium Chloride 0.9% 1000 ML 1,000 ML ONE (20:20)
[2023-05-29 20:38] LABS: Appearance Clear (Clear); Bacteria None Seen /HPF (None Seen); Bilirubin Negative (Negative); Blood Negative (Negative); Epithelial Cells None Seen /HPF (None Seen); Glucose, Urine Negative (Negative); Hyaline Casts NONE SEEN /LPF (0-2); Ketones Negative (Negative); Leukocyte Esterase Trace (Negative); Nitrite Negative (Negative); Ph 6.5 (4.6-8.0); Protein,Urine Dip Negative (Negative); RBC 0-2 /HPF (0-5); Specific Gravity 1.025 (1.005-1.030); Urobilinogen 0.2 mg/dL (0.2)
[2023-05-29 20:40] LABS: ADD URINE CULTURE? NO (NO)
[2023-05-29] MEDS ORDERED: BABY ASPIRIN 81 MG CHEW PO ONE (22:32)
--- NOTE | 2023-05-30 08:36 | XRAY ---
Indication: Chest pain. Comparison: November 04, 2022 Portable chest again demonstrates normal heart, lungs, and bony thorax.
== END 2023-05-29 22:58 | disposition home or self-care (01) ==
LOC: ED 19:01
DX: R07.9 Chest pain, unspecified (principal); R51.9 Headache, unspecified; R94.5 Abnormal results of liver function studies; R94.4 Abnormal results of kidney function studies; Z86.16 Personal history of COVID-19; Z72.0 Tobacco use
CPT/HCPCS: 36000; 36415; 71045; 80053; 81001; 82150; 83605; 83690; 84484; 85025; 93005; 99284; A9270-GY

== ENCOUNTER 2023-06-15 10:30 | Emergency (ER) | payer MEDICAID ==
[2023-06-15 10:55] VITALS: RESP 20; TEMP 97.6; O2SAT 96
[2023-06-15] MEDS ORDERED: TORAdol 30 mg Injection IM ONE (11:01)
[2023-06-15] MEDS ORDERED: HYDROCODONE-ACETAMIN 10-325 MG PO STA (11:01)
[2023-06-15] MEDS ORDERED: TORAdol 30 mg Injection ONE (11:10)
[2023-06-15] MEDS ORDERED: NORCO 5/325 MG ONE (11:10)
[2023-06-15] MEDS ORDERED: HYDROCODONE-ACETAMIN 10-325 MG ONE (11:13)
--- NOTE | 2023-06-15 11:36 | ERPHSYRPT ---
- History of Present Illness Time Seen by Provider: 06/15/23 10:40 Source: patient Exam Limitations: no limitations Patient Subjective Stated Complaint: Pt states "I was lifting up some boxes and all of a sudden my lower back started hurting and it put me down." Triage Nursing Assessment: Pt presented alert and oriented X 3, skin pwd .Pt ambualtes with a slow hunched gait, able to speak in clear full senteces. Pt has tenderness noted to his lower back. Physician History: Back pain. Patient states that they were lifting up some pallets just prior to arrival. Russell something pull in her back. Low left back pain, midline low back pain. No falls or other trauma. No fever no chills. No history of back issues. Patient has no red flag symptoms for back pain today: No Loss of control of the bowel or bladder. No weakness or numbness in a leg or arm. No foot drop, disturbed gait. No high fever, no IV drug use. No saddle anaesthesia (numbness of the anus, perineum or genitals). No trauma or h/o cancer Allergies/Adverse Reactions: sulfamethoxazole [From Bactrim] Allergy (Unknown, Verified 05/29/23 19:03) trimethoprim [From Bactrim] Allergy (Unknown, Verified 05/29/23 19:03) Hx Tetanus, Diphtheria Vaccination/Date Given: Yes Hx Influenza Vaccination/Date Given: No Hx Pneumococcal Vaccination/Date Given: No Immunizations Up to Date: Yes Travel Risk - International Travel Have you traveled outside of the country in past 3 weeks: No - Coronavirus Screening Are you exhibiting any of the following symptoms?: No Close contact with a COVID-19 positive Pt in past 14-21 Days: No - Vaccine Status Have you recieved a Covid-19 vaccination: No [employer]: Unknown - Vaccination Dates Dates if Unknown: unk - Review of Systems Constitutional: No Fever, No Chills Eyes: No Symptoms Ears, Nose, & Throat: No Symptoms Respiratory: No Cough, No Dyspnea Cardiac: No Chest Pain, No Edema, No Syncope Abdominal/Gastrointestinal: No Abdominal Pain, No Nausea, No Vomiting, No Diarrhea Genitourinary Symptoms: No Dysuria Musculoskeletal: No Back Pain, No Neck Pain Skin: No Rash Neurological: No Dizziness, No Focal Weakness, No Sensory Changes Psychological: No Symptoms Endocrine: No Symptoms All Other Systems: Reviewed and Negative - Past Medical History Pertinent Past Medical History: Yes Respiratory History: Other GI Medical History: GERD Psycho-Social History: Depression Other Medical History: MRSA infection to LLE, COVID-19 X 2 - Past Surgical History Past Surgical History: Yes - Social History Smoking Status: Current every day smoker How long have you smoked: years Exposure to second hand smoke: No Drug Use: none Patient Lives Alone: No - Nursing Vital Signs Nursing Vital Signs: Initial Vital Signs Temperature 97.6 F 06/15/23 10:51 Pulse Rate 71 06/15/23 10:51 Respiratory Rate 20 06/15/23 10:51 Blood Pressure 131/71 06/15/23 10:51 O2 Sat by Pulse Oximetry 96 06/15/23 10:51 Pain Scale Pain Intensity [Lower Back] 6 Pain Intensity 2 - Physical Exam SpO2: 96 Comments: 06/15/23 11:36 Physical Exam Vitals signs and nursing note reviewed. Constitutional: Appearance: Patient is well-developed. HENT: Head: Normocephalic and atraumatic. Eyes: Conjunctiva/sclera: Conjunctivae normal. Neck: Trachea: No tracheal deviation. Cardiovascular: Rate and Rhythm: Normal rate. Pulmonary: Effort: Pulmonary effort is normal. No respiratory distress. Abdominal: Palpations: Abdomen is soft. Musculoskeletal: General: Left lower back tenderness. No obvious deformity, sensation intact, 2+ capillary refill, 2 point tactile discrimination intact. 5 out of 5 strength. Full range of motion without pain. Compartments are soft, nontender. Overlying skin shows no tenting, bruising, ecchymosis. Skin: General: Skin is warm and dry. Neurological: Mental Status: Patient is alert and oriented to person, place, and time, behavior normal. - Course Nursing assessment & vital signs reviewed: Yes Ordered Tests: Active Orders 24 hr Category Date Time Status LUMBAR LIMITED (2 OR 3 VIEWS) Stat Exams 06/15/23 11:00 Completed Medication Summary Discontinued Medications Generic Name Dose Route Start Last Admin Trade Name Freq PRN Reason Stop Dose Admin Hydrocodone Bitart/Acetaminophen 1 tablet 06/15/23 11:01 06/15/23 11:13 Hydrocodone/Acetamin 10-325 Mg Tablet PO 06/15/23 11:02 1 tablet ONCE STA Administration Hydrocodone Bitart/Acetaminophen Confirm 06/15/23 11:10 Hydrocodone/Apap 5/325 1 Tab Tablet Administered 06/15/23 11:11 Dose 1 tab .ROUTE .STK-MED ONE Hydrocodone Bitart/Acetaminophen Confirm 06/15/23 11:13 Hydrocodone/Acetamin 10-325 Mg Tablet Administered 06/15/23 11:14 Dose 1 tablet .ROUTE .STK-MED ONE Ketorolac Tromethamine 30 mg 06/15/23 11:01 06/15/23 11:11 Ketorolac Tromethamine 30 Mg/Ml Inj IM 06/15/23 11:02 30 mg STAT ONE Administration Ketorolac Tromethamine Confirm 06/15/23 11:10 Ketorolac Tromethamine 30 Mg/Ml Inj Administered 06/15/23 11:11 Dose 30 mg .ROUTE .STK-MED ONE - Progress Progress: improved Progress Note: 06/15/23 11:37 Plan for oral pain medication, IM Toradol. Most likely muscle strain. Will obtain L-spine x-ray looking for any fracture or other injury. 06/15/23 13:06 Patient feeling improved with medication. XR demonstrates no fracture. Plan for reexam and close follow up with PCP. May return here sooner for new or changing symptoms. - Departure Departure Disposition: Home Clinical Impression: Acute back pain with sciatica Condition: Stable Critical Care Time: No Referrals: SANTOS ESPINAL NP [Primary Care Provider] - Follow up/PCP as directed Instructions: Low Back Pain (DC), Sciatica (DC)
--- NOTE | 2023-06-15 12:43 | XRAY ---
Indication: Lifting injury. Low back pain. Comparison: None 3 view lumbar spine demonstrates 5 lumbar segments in normal alignment with minimal L5-S1 disc space narrowing. No other bony, articular, or soft tissue abnormalities.
[2023-06-15 12:50] VITALS: BP 130/74; PULSE 84
== END 2023-06-15 13:01 | disposition home or self-care (01) ==
LOC: ED 10:30
DX: M54.40 Lumbago with sciatica, unspecified side (principal); Z86.16 Personal history of COVID-19; Z72.0 Tobacco use
CPT/HCPCS: 72100; 96372; 99283; J1885; A9270-GY

== ENCOUNTER 2023-06-15 20:19 | Emergency (ER) | payer MEDICAID ==
[2023-06-15] MEDS ORDERED: Hydromorphone 1 mg/ml Injection IM ONE (20:21)
[2023-06-15 20:23] VITALS: RESP 18; TEMP 98.1; O2SAT 97
[2023-06-15] MEDS ORDERED: Hydromorphone 1 mg/ml Injection ONE (20:30)
[2023-06-15] MEDS ORDERED: Hydromorphone 1 mg/ml Injection IV ONE (20:35)
--- NOTE | 2023-06-15 21:26 | ERPHSYRPT ---
- History of Present Illness Time Seen by Provider: 06/15/23 20:25 Source: patient, EMS Exam Limitations: no limitations Patient Subjective Stated Complaint: pt states since he left the er his back pain has increased and he has had too much pain to walk. Triage Nursing Assessment: pt alert and orietned, answers questions approp. pt arrive per ambulance and transfers self to stretcher with assist of 1. respirations nonlabaored. skin warm and dry. pedal pulses wnl. pt reports normal sensation in lower ext. pt denies bowel or bladder incont. Physician History: Patient is a 27-year-old white male who was seen earlier today and had x-rays of his lumbar spine for low back pain which radiates into the buttocks with movement he rates the pain 10 of 10 with rest its 8 of 10. He was given fentanyl earlier but was not given any pain medicine for at home. He now states the pain is so severe he cannot bear weight or walk. He denies any problems with his bowels or bladder. Timing/Duration: today Method of Injury: lifting Quality: radiating, sharp Back Pain Location: lumbar spine Back Pain Radiation: buttocks, upper legs Severity of Pain-Max: severe Severity of Pain-Current: moderate Modifying Factors: Improves With: movement Associated Symptoms: denies symptoms Previous symptoms: same symptoms as today (Pain of similar nature some years ago.) Allergies/Adverse Reactions: sulfamethoxazole [From Bactrim] Allergy (Unknown, Verified 06/15/23 20:23) trimethoprim [From Bactrim] Allergy (Unknown, Verified 06/15/23 20:23) Hx Tetanus, Diphtheria Vaccination/Date Given: Yes Hx Influenza Vaccination/Date Given: No Hx Pneumococcal Vaccination/Date Given: No Immunizations Up to Date: Yes Travel Risk - International Travel Have you traveled outside of the country in past 3 weeks: No - Coronavirus Screening Are you exhibiting any of the following symptoms?: No Close contact with a COVID-19 positive Pt in past 14-21 Days: No - Vaccine Status Have you recieved a Covid-19 vaccination: No [employer]: Unknown - Vaccination Dates Dates if Unknown: unk - Review of Systems Constitutional: No Fever, No Chills Eyes: No Symptoms Ears, Nose, & Throat: No Symptoms Respiratory: No Cough, No Dyspnea Cardiac: No Chest Pain, No Edema, No Syncope Abdominal/Gastrointestinal: No Abdominal Pain, No Nausea, No Vomiting, No Diarrhea Genitourinary Symptoms: No Dysuria Musculoskeletal: Back Pain, No Neck Pain Skin: No Rash Neurological: No Dizziness, No Focal Weakness, No Sensory Changes Psychological: No Symptoms Endocrine: No Symptoms All Other Systems: Reviewed and Negative - Past Medical History Pertinent Past Medical History: Yes Respiratory History: Other GI Medical History: GERD Psycho-Social History: Depression Other Medical History: MRSA infection to LLE, COVID-19 X 2 - Past Surgical History Past Surgical History: Yes - Social History Smoking Status: Former smoker How long have you smoked: years Exposure to second hand smoke: No Drug Use: none Patient Lives Alone: Yes - Nursing Vital Signs Nursing Vital Signs: Initial Vital Signs Temperature 98.1 F 06/15/23 20:20 Pulse Rate 96 H 06/15/23 20:20 Respiratory Rate 18 06/15/23 20:20 Blood Pressure 123/77 06/15/23 20:20 O2 Sat by Pulse Oximetry 97 06/15/23 20:20 Pain Scale Pain Intensity [Lower Back] 8 Pain Intensity 8 - Physical Exam General Appearance: moderate distress, alert Eye Exam: PERRL/EOMI, eyes nml inspection Neck Exam: normal inspection, non-tender, supple, full range of motion, No meningismus, No midline tenderness Respiratory Exam: normal breath sounds, lungs clear, No respiratory distress Cardiovascular Exam: regular rate/rhythm, normal heart sounds Gastrointestinal Exam: soft, No tenderness, No mass Back Exam: normal inspection, vertebral tenderness (Over the L4-5 S1 area), decreased range of motion, muscle spasm Extremity Exam: normal inspection, normal range of motion, No calf tenderness, No pedal edema Neurologic Exam: alert, oriented x 3, cooperative, human resources director II-XII nml as tested, normal mood/affect, nml station & gait, sensation nml, No motor deficits Skin Exam: normal color, warm, dry, No rash SpO2 Interpretation: normal SpO2: 97 O2 Delivery: Room Air - CT Exams Lumbar Spine CT Interpretation: Other (Reviewed by me) Ordered Tests: Active Orders 24 hr Category Date Time Status LUMBAR SPINE W/O [CT] Stat Exams 06/15/23 20:38 Taken Medication Summary Discontinued Medications Generic Name Dose Route Start Last Admin Trade Name Freq PRN Reason Stop Dose Admin Hydromorphone HCl 1 mg 06/15/23 20:21 06/15/23 20:38 Hydromorphone 1 Mg/1ml Inj IM 06/15/23 20:22 Not Given STAT ONE Hydromorphone HCl Confirm 06/15/23 20:30 Hydromorphone 1 Mg/1ml Inj Administered 06/15/23 20:31 Dose 1 mg .ROUTE .STK-MED ONE Hydromorphone HCl 1 mg 06/15/23 20:35 06/15/23 20:44 Hydromorphone 1 Mg/1ml Inj IV 06/15/23 20:36 1 mg STAT ONE Administration - Progress Progress: improved Medical Desision Making - Independent Historian Additional History obtained from: Spouse - Diagnostic Testing Diagnostic test were ordered, analyzed, and reviewed by me: Yes Radiological Interpretation: Reviewed by me - Risk of complications Low Risk: Low risk of morbidity from additional dx testing or treatment - Departure Departure Disposition: Home Clinical Impression: Lumbar radiculopathy Condition: Stable Critical Care Time: No Referrals: SANTOS ESPINAL NP [Primary Care Provider] - Follow up/PCP as directed Instructions: Low Back Pain (DC), Sciatica (DC) Prescriptions: Methylprednisolone Packet [Medrol Dosepack] 4 mg PO UD #1 packet Oxycodone HCl/Acetaminophen [Percocet 5-325 mg Tablet] 1 each PO Q6H 3 Days #12 tablet MDD 4
[2023-06-15] MEDS ORDERED: NORCO 5/325 MG PO ONE (21:30)
[2023-06-15 21:32] VITALS: BP 93/52; PULSE 88
[2023-06-15] MEDS ORDERED: NORCO 5/325 MG ONE (21:33)
--- NOTE | 2023-06-16 08:46 | XRAY ---
Indication: Low back pain lifting boxes. Multiple contiguous axial images obtained through the lumbar spine. Sagittal and coronal reformatted images obtained. Comparison: None Axial images demonstrates mild broad-based disc bulge at L4-S1 levels. No acute fracture, suspicious bony lesions, or spinal canal stenosis. Facets are symmetric. Sagittal and coronal reformatted images demonstrates normal lumbar alignment with minimal L5-S1 disc space narrowing. No acute compression fracture. Visualized noncontrasted soft tissues are unremarkable. Impression: L4-S1 broad-based disc bulge better evaluated with outpatient MRI. Remaining CT lumbar spine is negative.
== END 2023-06-15 21:52 | disposition home or self-care (01) ==
LOC: ED 20:19
DX: M54.16 Radiculopathy, lumbar region (principal); Z79.891 Long term (current) use of opiate analgesic; Z79.52 Long term (current) use of systemic steroids; Z86.16 Personal history of COVID-19
CPT/HCPCS: 72131; 96374; 99283; J1170; A9270-GY

== ENCOUNTER 2023-06-29 18:35 | Emergency (ER) | payer MEDICAID ==
[2023-06-29] MEDS ORDERED: BABY ASPIRIN 81 MG CHEW PO ONE (18:40)
[2023-06-29] MEDS ORDERED: BABY ASPIRIN 81 MG CHEW ONE (18:45)
[2023-06-29 18:55] VITALS: TEMP 97.3
[2023-06-29 18:59] LABS: Absolute Neutrophil Ct (ANC) 4.19 x10^3/uL (1.4-6.9); BASOPHIL % 0.7 % (0.0-0.4); Basophil (Absolute #) 0.05 x10^3/uL (0-0.4); Eosinophil % 1.5 % (0.00-5.0); Eosinophil (Absolute #) 0.11 x10^3/uL (0-0.5); Hematocrit 45.3 % (42-50); Hemoglobin 14.9 g/dL (12.5-18.0); IMMATURE GRAN # 0.02 x10^3u/L (0.00-0.03); IMMATURE GRAN % 0.3 % (0.00-0.4); Lymphocyte (Absolute #) 2.49 x10^3/uL (1.0-4.6); Lymphocytes % 33.8 % (24.0-44.0); Mean Cell Volume 89.7 fL (78-100); Mean Corpuscular Hemoglobin 29.5 pg (26-32); Mean Corpuscular Hgb Concent. 32.9 g/dL (32-36); Mean Platelet Volume 10.7 fL (7.5-11.0); Monocytes % 6.8 % (0.0-12.0); Neutrophil % 56.9 % (36.0-66.0); Platelet Count 260 x10^3/uL (150-450); Red Blood Count 5.05 x10^6/uL (4.1-5.6); Red Cell Distribution Width 12.7 % (11.5-14.0); White Blood Count 7.4 x10^3/uL (4.0-10.5)
[2023-06-29 19:24] LABS: ALBUMIN 4.7 g/dL (3.5-5.0); ALKALINE PHOSPHATASE 65 U/L (38-126); BLOOD UREA NITROGEN 22 mg/dL (9-20); CHLORIDE 102 mmol/L (98-107); Calcium 9.1 mg/dL (8.4-10.2); Carbon Dioxide 27 mmol/L (22-30); Creatinine 1 1.25 mg/dL (0.66-1.25); EST GLOMERULAR FILTRATION RATE > 60.0 ML/MIN; Glucose 123 mg/dL (74-106); Potassium 3.9 mmol/L (3.5-5.1); SGOT/AST 30 U/L (17-59); SGPT/ALT 64 U/L (0-50); SODIUM 140 mmol/L (137-145); Total Protein 7.3 g/dL (6.3-8.2)
[2023-06-29 19:25] LABS: D-DIMER QUANTITATIVE < 0.19 mg/L (0.0-0.50); INR 0.93 (0.8-3.0); PROTIME 10.2 SECONDS (9.4-12.5)
[2023-06-29 20:20] VITALS: O2SAT 97
--- NOTE | 2023-06-29 20:21 | ERPHSYRPT ---
- History of Present Illness Time Seen by Provider: 06/29/23 20:15 Historian: patient Exam Limitations: no limitations Patient Subjective Stated Complaint: pt states he has been having chest pain for the past 2 hours Triage Nursing Assessment: pt ambulated into the er; pt is axo x4; c/o chest pain; pt states 8/10 pain to chest; clear apical heart tone; strong binh radial pulse; strong binh pedal pulse; clear lung sounds in all lobes; skin PDW; no respiratory distress present; vitals wnl Physician History: Patient is a 27-year-old male presents to our ED for evaluation of chest pain. Chest pain started approximately 2 hours prior to arrival. Patient reports he had a meal and pain started shortly thereafter. Patient has had chest pain in the past and diagnosed with GERD. Patient currently on pantoprazole. Patient rates his pain 8 out of 10. No radiation. No associated symptomology. No nausea vomiting or diaphoresis. Patient is currently comfortable. No active chest pain at this time. Patient is sitting up conversant well-appearing in no acute distress. Patient's girlfriend at the bedside. They voiced no other complaints or concerns at this time. Portions of this note were created with voice recognition technology. There may be grammatical, spelling, punctuation or sound alike errors Timing/Duration: today Activities at Onset: none Quality: aching Location: substernal Chest Pain Radiation: no radiation Severity of Pain-Max: moderate Severity of Pain-Current: mild Modifying Factors: Improves With: nothing Associated Symptoms: denies symptoms Prior Chest Pain/Cardiac Workup: no prior chest pain Nitro Today/Relief: no nitro taken today Aspirin Treatment Today: 325 mg x 1 (325 mg aspirin administered in our ED) Allergies/Adverse Reactions: sulfamethoxazole [From Bactrim] Allergy (Unknown, Verified 06/15/23 20:23) trimethoprim [From Bactrim] Allergy (Unknown, Verified 06/15/23 20:23) Home Medications: Lisinopril 10 mg [Zestril 10 MG] 10 mg PO DAILY 06/29/23 [History] Hx Tetanus, Diphtheria Vaccination/Date Given: Yes Hx Influenza Vaccination/Date Given: No Hx Pneumococcal Vaccination/Date Given: No Travel Risk - International Travel Have you traveled outside of the country in past 3 weeks: No - Coronavirus Screening Are you exhibiting any of the following symptoms?: No Close contact with a COVID-19 positive Pt in past 14-21 Days: No - Vaccine Status Have you recieved a Covid-19 vaccination: No Bi Solutions Architect: Unknown - Vaccination Dates Dates if Unknown: unk - Review of Systems Constitutional: No Symptoms, No Fever, No Chills Eyes: No Symptoms Ears, Nose, & Throat: No Symptoms Respiratory: No Symptoms, No Cough, No Dyspnea Cardiac: No Symptoms, No Chest Pain, No Edema, No Syncope Abdominal/Gastrointestinal: No Symptoms, No Abdominal Pain, No Nausea, No Vomiting, No Diarrhea Genitourinary Symptoms: No Symptoms, No Dysuria Musculoskeletal: No Symptoms, No Back Pain, No Neck Pain Skin: No Symptoms, No Rash Neurological: No Symptoms, No Dizziness, No Focal Weakness, No Sensory Changes Psychological: No Symptoms Endocrine: No Symptoms Hematologic/Lymphatic: No Symptoms Immunological/Allergic: No Symptoms All Other Systems: Reviewed and Negative - Past Medical History Pertinent Past Medical History: Yes Cardiac History: Hypertension Respiratory History: Other GI Medical History: GERD Psycho-Social History: Depression Other Medical History: MRSA infection to LLE, COVID-19 X 2 - Past Surgical History Past Surgical History: Yes - Social History Smoking Status: Light tobacco smoker How long have you smoked: years Exposure to second hand smoke: No Drug Use: none Patient Lives Alone: No - Nursing Vital Signs Nursing Vital Signs: Initial Vital Signs Temperature 97.3 F 06/29/23 18:36 Pulse Rate 87 06/29/23 18:36 Respiratory Rate 20 06/29/23 18:36 Blood Pressure 122/83 06/29/23 18:36 O2 Sat by Pulse Oximetry 99 06/29/23 18:36 Pain Scale Pain Intensity 4 - Physical Exam General Appearance: no apparent distress, alert Eye Exam: PERRL/EOMI, eyes nml inspection Ears, Nose, Throat Exam: normal ENT inspection, TMs normal, pharynx normal, moist mucous membranes Neck Exam: normal inspection, non-tender, supple, full range of motion Respiratory Exam: normal breath sounds, lungs clear, airway intact, No respiratory distress Cardiovascular Exam: regular rate/rhythm, normal heart sounds, normal peripheral pulses Gastrointestinal/Abdomen Exam: soft, No tenderness, No mass Back Exam: normal inspection, No CVA tenderness, No vertebral tenderness Extremity Exam: normal inspection, normal range of motion Neurologic Exam: alert, oriented x 3, cooperative, normal mood/affect, sensation nml, No motor deficits Skin Exam: normal color, warm, dry Lymphatic Exam: No adenopathy SpO2 Interpretation: normal SpO2: 97 O2 Delivery: Room Air - Course Nursing assessment & vital signs reviewed: Yes EKG Interpreted by Me: RATE ([id number]), Sinus Rhythm, NORMAL AXIS, NORMAL INTERVALS - Radiology Exams Chest X-ray Interpretation: Interpreted by me (Negative chest x-ray) Ordered Tests: Active Orders 24 hr Category Date Time Status Tack Maker STAT Care 06/29/23 18:41 Completed EKG-ER Only STAT Care 06/29/23 18:40 Completed IV Insertion STAT Care 06/29/23 18:40 Completed Pulse Oximetry (ED) STAT Care 06/29/23 18:40 Completed CHEST 1 VIEW (PORTABLE) Stat Exams 06/29/23 18:40 Taken CBC W DIFF Stat Lab 06/29/23 18:55 Completed CMP Stat Lab 06/29/23 18:55 Completed D-DIMER QUANTITATIVE Stat Lab 06/29/23 18:55 Completed PROTIME WITH INR Stat Lab 06/29/23 18:55 Completed TROPONIN Q4H Lab 06/29/23 18:55 Completed TROPONIN Q4H Lab 06/29/23 21:29 Completed Medication Summary Discontinued Medications Generic Name Dose Route Start Last Admin Trade Name Clarissa PRN Reason Stop Dose Admin Aspirin 324 mg 06/29/23 18:40 06/29/23 18:45 Aspirin 81 Mg Tab.Chew PO 06/29/23 18:41 324 mg STAT ONE Administration Aspirin Confirm 06/29/23 18:45 Aspirin 81 Mg Tab.Chew Administered 06/29/23 18:46 Dose 324 mg .ROUTE .STK-MED ONE Lab/Rad Data: Laboratory Result Diagrams 06/29/23 18:55 06/29/23 18:55 Laboratory Results 06/29/23 06/29/23 06/29/23 Range/Units 21:29 18:55 18:55 WBC (4.0-10.5) x10^3/uL RBC (4.1-5.6) x10^6/uL Hgb (12.5-18.0) g/dL Hct (42-50) % MCV (78-100) fL MCH (26-32) pg MCHC (32-36) g/dL RDW (11.5-14.0) % Plt Count (150-450) x10^3/uL MPV (7.5-11.0) fL Gran % (36.0-66.0) % Immature Gran % (Auto) (0.00-0.4) % Nucleat RBC Rel Count (0.00-0.1) % Eos # (Auto) (0-0.5) x10^3/uL Immature Gran # (Auto) (0.00-0.03) x10^3u/L Absolute Lymphs (auto) (1.0-4.6) x10^3/uL Absolute Monos (auto) (0.0-1.3) x10^3/uL Absolute Nucleated RBC (0.00-0.01) x10^3u/L Lymphocytes % (24.0-44.0) % Monocytes % (0.0-12.0) % Eosinophils % (0.00-5.0) % Basophils % (0.0-0.4) % Absolute Granulocytes (1.4-6.9) x10^3/uL Basophils # (0-0.4) x10^3/uL PT 10.2 (9.4-12.5) SECONDS INR 0.93 (0.8-3.0) D-Dimer < 0.19 (0.0-0.50) mg/L Sodium (137-145) mmol/L Potassium (3.5-5.1) mmol/L Chloride (98-107) mmol/L Carbon Dioxide (22-30) mmol/L Anion Gap (5-15) MEQ/L BUN (9-20) mg/dL Creatinine (0.66-1.25) mg/dL Estimated GFR ML/MIN Glucose (74-106) mg/dL Calcium (8.4-10.2) mg/dL Total Bilirubin (0.2-1.3) mg/dL AST (17-59) U/L ALT (0-50) U/L Alkaline Phosphatase (38-126) U/L Troponin I < 0.012 < 0.012 (0.000-0.034) ng/mL Serum Total Protein (6.3-8.2) g/dL Albumin (3.5-5.0) g/dL 06/29/23 06/29/23 Range/Units 18:55 18:55 WBC 7.4 (4.0-10.5) x10^3/uL RBC 5.05 (4.1-5.6) x10^6/uL Hgb 14.9 (12.5-18.0) g/dL Hct 45.3 (42-50) % MCV 89.7 (78-100) fL MCH 29.5 (26-32) pg MCHC 32.9 (32-36) g/dL RDW 12.7 (11.5-14.0) % Plt Count 260 (150-450) x10^3/uL MPV 10.7 (7.5-11.0) fL Gran % 56.9 (36.0-66.0) % Immature Gran % (Auto) 0.3 (0.00-0.4) % Nucleat RBC Rel Count 0.0 (0.00-0.1) % Eos # (Auto) 0.11 (0-0.5) x10^3/uL Immature Gran # (Auto) 0.02 (0.00-0.03) x10^3u/L Absolute Lymphs (auto) 2.49 (1.0-4.6) x10^3/uL Absolute Monos (auto) 0.50 (0.0-1.3) x10^3/uL Absolute Nucleated RBC 0.00 (0.00-0.01) x10^3u/L Lymphocytes % 33.8 (24.0-44.0) % Monocytes % 6.8 (0.0-12.0) % Eosinophils % 1.5 (0.00-5.0) % Basophils % 0.7 (0.0-0.4) % Absolute Granulocytes 4.19 (1.4-6.9) x10^3/uL Basophils # 0.05 (0-0.4) x10^3/uL PT (9.4-12.5) SECONDS INR (0.8-3.0) D-Dimer (0.0-0.50) mg/L Sodium 140 (137-145) mmol/L Potassium 3.9 (3.5-5.1) mmol/L Chloride 102 (98-107) mmol/L Carbon Dioxide 27 (22-30) mmol/L Anion Gap 15.0 (5-15) MEQ/L BUN 22 H (9-20) mg/dL Creatinine 1.25 (0.66-1.25) mg/dL Estimated GFR > 60.0 ML/MIN Glucose 123 H (74-106) mg/dL Calcium 9.1 (8.4-10.2) mg/dL Total Bilirubin 0.50 (0.2-1.3) mg/dL AST 30 (17-59) U/L ALT 64 H (0-50) U/L Alkaline Phosphatase 65 (38-126) U/L Troponin I (0.000-0.034) ng/mL Serum Total Protein 7.3 (6.3-8.2) g/dL Albumin 4.7 (3.5-5.0) g/dL - Progress Progress: improved Air Movement: good Progress Note: Patient is a 27-year-old male presents to our ED for evaluation of chest pain that started after a meal. Physical exam essentially nonremarkable. EKG was normal sinus rhythm. No ischemic changes. Chest x-ray was nonremarkable. No acute findings. CBC CMP within normal limits. D-dimer negative. Troponin negative x2. Patient received aspirin upon arrival to our ED. Patient reassessed at discharge. Patient is asymptomatic resting comfortably has no complaints. Will discharge home. Patient agrees to follow-up with primary care doctor within 48 hours for reevaluation. Patient voices no other complaints or concerns at this time. Portions of this note were created with voice recognition technology. There may be grammatical, spelling, punctuation or sound alike errors Complexity of problems addressed is moderate acute complicated. No critical care time Complex of data reviewed and analyzed is extensive test ordered. Test reviewed and analyzed. Clinical correlation made between findings of imaging and laboratory studies versus history and physical examination. Chest x-ray independently reviewed by Dr. Lambert. EKG independently reviewed by Dr. Lambert as well. Risk of complication and or risk of morbidity/mortality of patient management is low. No prescriptions administered. No surgical decisions considered. Treatment not limited by social determinants of health. No hospitalization required or indicated at this time. Patient discharged home. Vital stable. Plan of care established for shared decision making. Time spent to discharge patient is approximately 15 minutes. No social determinants of health present to impede follow-up. Portions of this note were created with voice recognition technology. There may be grammatical, spelling, punctuation or sound alike errors 06/29/23 22:20 Blood Culture(s) Obtained: No Antibiotics given: No Counseled pt/family regarding: lab results, diagnosis, need for follow-up, rad results - Departure Departure Disposition: Home Clinical Impression: Chest pain Condition: Stable Critical Care Time: No Referrals: SANTOS ESPINAL NP [Primary Care Provider] - Follow up/PCP as directed Instructions: Chest Pain (DC) Additional Instructions: Discharge/Care Plan CAMRYN BELCHER was seen on 06/29/23 in the Emergency Room. The patient was counseled regarding Diagnosis,Lab results, Imaging studies, need for follow up and when to return to the Emergency Room. Prescriptions given: Discharge Note I have spoken with the patient and/or caregivers. I have explained the patient's condition, diagnosis and treatment plan based on the information available to me at this time. I have answered the patient's and/or caregiver's questions and addressed any concerns. The patient and/or caregivers have as good understanding of the patient's diagnosis, condition and treatment plan as can be expected at this point. The vital signs have been stable. The patient's condition is stable and appropriate for discharge from the emergency department. The patient will pursue further outpatient evaluation with the primary care physician or other designated or consulting physician as outlined in the discharge instructions. The patient and/or caregivers are agreeable to this plan of care and follow-up instructions have been explained in detail. The patient and/or caregivers have received these instruction. The patient/and or caregivers are aware that any significant change in condition or worsening of symptoms should prompt an immediate return to this or the closest emergency department or call 911.
[2023-06-29 22:11] VITALS: BP 115/59; PULSE 80; RESP 18
--- NOTE | 2023-06-30 08:40 | XRAY ---
Indication: Chest pain. Comparison: May 29, 2023 Portable apical lordotic chest again demonstrates normal heart, lungs, and bony thorax.
== END 2023-06-29 22:17 | disposition home or self-care (01) ==
LOC: ED 18:35
DX: R07.9 Chest pain, unspecified (principal); I10 Essential (primary) hypertension; Z79.899 Other long term (current) drug therapy; Z86.16 Personal history of COVID-19; Z72.0 Tobacco use
CPT/HCPCS: 36000; 36415; 71045; 80053; 84484; 85025; 85379; 85610; 93005; 93041; 94760; 99284; A9270-GY

== ENCOUNTER 2023-10-19 17:49 | Emergency (ER) | payer MEDICAID ==
--- NOTE | 2023-10-19 18:08 | ERPHSYRPT ---
- History of Present Illness Time Seen by Provider: 10/19/23 18:00 Historian: patient Exam Limitations: no limitations Patient Subjective Stated Complaint: Pt c/o of chest pain from coughing, head congestion Triage Nursing Assessment: Pt brought to the ER by his fiance, vitals wnl, rates pain as 8/10, cough, chest pain from cough, N&V, pulses normal, skin n/w/d, walked into the. ER with a stable gait, no difficulties breathing, white thick sputum Physician History: 28-year-old male presents to our ED for evaluation of chest pain and nausea. Patient states the chest pain is worse when he coughs. No trauma no fever. BMI is 44.3. Patient also complains of nasal congestion. Symptoms are mild to moderate in intensity. Patient states he is otherwise healthy. He voices no other complaints or concerns at this time. Portions of this note were created with voice recognition technology. There may be grammatical, spelling, punctuation or sound alike errors Timing/Duration: week(s) (2 weeks) Activities at Onset: none Quality: aching Location: substernal Chest Pain Radiation: no radiation Severity of Pain-Max: moderate Severity of Pain-Current: mild Modifying Factors: Improves With: coughing Associated Symptoms: nausea, vomiting Prior Chest Pain/Cardiac Workup: no prior chest pain Nitro Today/Relief: no nitro taken today Aspirin Treatment Today: no aspirin today Allergies/Adverse Reactions: sulfamethoxazole [From Bactrim] Allergy (Unknown, Verified 10/19/23 17:57) trimethoprim [From Bactrim] Allergy (Unknown, Verified 10/19/23 17:57) Home Medications: Lisinopril 10 mg [Zestril 10 MG] 10 mg PO DAILY 06/29/23 [History] Hx Tetanus, Diphtheria Vaccination/Date Given: Yes Hx Influenza Vaccination/Date Given: No Hx Pneumococcal Vaccination/Date Given: No Travel Risk - International Travel Have you traveled outside of the country in past 3 weeks: No - Coronavirus Screening Are you exhibiting any of the following symptoms?: No Close contact with a COVID-19 positive Pt in past 14-21 Days: No - Vaccine Status Have you recieved a Covid-19 vaccination: No Unloader: Unknown - Vaccination Dates Dates if Unknown: unk - Review of Systems Constitutional: No Symptoms, No Fever, No Chills Eyes: No Symptoms Ears, Nose, & Throat: No Symptoms Respiratory: No Symptoms, No Cough, No Dyspnea Cardiac: No Symptoms, No Chest Pain, No Edema, No Syncope Abdominal/Gastrointestinal: No Symptoms, No Abdominal Pain, No Nausea, No Vomiting, No Diarrhea Genitourinary Symptoms: No Symptoms, No Dysuria Musculoskeletal: No Symptoms, No Back Pain, No Neck Pain Skin: No Symptoms, No Rash Neurological: No Symptoms, No Dizziness, No Focal Weakness, No Sensory Changes Psychological: No Symptoms Endocrine: No Symptoms Hematologic/Lymphatic: No Symptoms Immunological/Allergic: No Symptoms All Other Systems: Reviewed and Negative - Past Medical History Pertinent Past Medical History: Yes Cardiac History: Hypertension Respiratory History: Other GI Medical History: GERD Psycho-Social History: Depression Other Medical History: MRSA infection to LLE, COVID-19 X 2 - Past Surgical History Past Surgical History: Yes - Social History Smoking Status: Light tobacco smoker How long have you smoked: years Exposure to second hand smoke: Yes Drug Use: none Patient Lives Alone: No - Nursing Vital Signs Nursing Vital Signs: Initial Vital Signs O2 Sat by Pulse Oximetry 98 10/19/23 17:50 Pain Scale Pain Intensity 8 - Physical Exam General Appearance: no apparent distress, alert Eye Exam: PERRL/EOMI, eyes nml inspection Ears, Nose, Throat Exam: normal ENT inspection, TMs normal, pharynx normal, moist mucous membranes Neck Exam: normal inspection, non-tender, supple, full range of motion Respiratory Exam: normal breath sounds, airway intact, diminished breath sounds (Diminished and coarse), No respiratory distress Cardiovascular Exam: regular rate/rhythm, normal heart sounds, normal peripheral pulses Gastrointestinal/Abdomen Exam: soft, No tenderness, No mass Back Exam: normal inspection, No CVA tenderness, No vertebral tenderness Extremity Exam: normal inspection, normal range of motion Neurologic Exam: alert, oriented x 3, cooperative, normal mood/affect, sensation nml, No motor deficits Skin Exam: normal color, warm, dry SpO2 Interpretation: normal SpO2: 98 O2 Delivery: Room Air - Course Nursing assessment & vital signs reviewed: Yes EKG Interpreted by Me: RATE (78), Sinus Rhythm, NORMAL AXIS, NORMAL INTERVALS Ordered Tests: Active Orders 24 hr Category Date Time Status Contract Loader STAT Care 10/19/23 17:57 Active EKG-ER Only STAT Care 10/19/23 17:57 Active IV Insertion STAT Care 10/19/23 17:57 Active Pulse Oximetry (ED) STAT Care 10/19/23 17:57 Active CHEST 1 VIEW (PORTABLE) Stat Exams 10/19/23 17:57 Taken CBC W DIFF Stat Lab 10/19/23 18:15 Completed CMP Stat Lab 10/19/23 18:15 Completed D-DIMER QUANTITATIVE Stat Lab 10/19/23 18:15 Completed TROPONIN Q4H Lab 10/19/23 18:15 Completed TROPONIN Q4H Lab 10/19/23 22:00 Ordered TROPONIN Q4H Lab 10/20/23 02:00 Ordered Medication Summary Discontinued Medications Generic Name Dose Route Start Last Admin Trade Name Freq PRN Reason Stop Dose Admin Albuterol/Ipratropium 3 ml 10/19/23 19:10 Ipratropium/Albuterol Sulfate 3 Ml Ampul.Neb IH 10/19/23 19:11 STAT ONE Methylprednisolone Sodium 0 mg 10/19/23 19:10 Succinate 125 mg/ Sterile IV 10/19/23 19:11 Water 2 ml STAT ONE Lab/Rad Data: Laboratory Result Diagrams 10/19/23 18:15 10/19/23 18:15 Laboratory Results 10/19/23 10/19/23 10/19/23 Range/Units 18:15 18:15 18:15 WBC (4.0-10.5) x10^3/uL RBC (4.1-5.6) x10^6/uL Hgb (12.5-18.0) g/dL Hct (42-50) % MCV (78-100) fL MCH (26-32) pg MCHC (32-36) g/dL RDW (11.5-14.0) % Plt Count (150-450) x10^3/uL MPV (7.5-11.0) fL Gran % (36.0-66.0) % Immature Gran % (Auto) (0.00-0.4) % Nucleat RBC Rel Count (0.00-0.1) % Eos # (Auto) (0-0.5) x10^3/uL Immature Gran # (Auto) (0.00-0.03) x10^3u/L Absolute Lymphs (auto) (1.0-4.6) x10^3/uL Absolute Monos (auto) (0.0-1.3) x10^3/uL Absolute Nucleated RBC (0.00-0.01) x10^3u/L Lymphocytes % (24.0-44.0) % Monocytes % (0.0-12.0) % Eosinophils % (0.00-5.0) % Basophils % (0.0-0.4) % Absolute Granulocytes (1.4-6.9) x10^3/uL Basophils # (0-0.4) x10^3/uL D-Dimer < 0.19 (0.0-0.50) mg/L Sodium 137 (137-145) mmol/L Potassium 3.9 (3.5-5.1) mmol/L Chloride 104 (98-107) mmol/L Carbon Dioxide 23 (22-30) mmol/L Anion Gap 14.0 (5-15) MEQ/L BUN 25 H (9-20) mg/dL Creatinine 1.07 (0.66-1.25) mg/dL Estimated GFR 97.5 ML/MIN Glucose 92 (74-106) mg/dL Calcium 9.4 (8.4-10.2) mg/dL Total Bilirubin 0.40 (0.2-1.3) mg/dL AST 33 (17-59) U/L ALT 85 H (0-50) U/L Alkaline Phosphatase 72 (38-126) U/L Troponin I < 0.012 (0.000-0.034) ng/mL Serum Total Protein 7.5 (6.3-8.2) g/dL Albumin 4.8 (3.5-5.0) g/dL 10/19/ Range/Units 18:15 WBC 12.2 H (4.0-10.5) x10^3/uL RBC 4.99 (4.1-5.6) x10^6/uL Hgb 14.7 (12.5-18.0) g/dL Hct 44.0 (42-50) % MCV 88.2 (78-100) fL MCH 29.5 (26-32) pg MCHC 33.4 (32-36) g/dL RDW 12.9 (11.5-14.0) % Plt Count 270 (150-450) x10^3/uL MPV 10.6 (7.5-11.0) fL Gran % 62.6 (36.0-66.0) % Immature Gran % (Auto) 0.7 H (0.00-0.4) % Nucleat RBC Rel Count 0.0 (0.00-0.1) % Eos # (Auto) 0.15 (0-0.5) x10^3/uL Immature Gran # (Auto) 0.09 H (0.00-0.03) x10^3u/L Absolute Lymphs (auto) 3.35 (1.0-4.6) x10^3/uL Absolute Monos (auto) 0.88 (0.0-1.3) x10^3/uL Absolute Nucleated RBC 0.00 (0.00-0.01) x10^3u/L Lymphocytes % 27.4 (24.0-44.0) % Monocytes % 7.2 (0.0-12.0) % Eosinophils % 1.2 (0.00-5.0) % Basophils % 0.9 (0.0-0.4) % Absolute Granulocytes 7.66 H (1.4-6.9) x10^3/uL Basophils # 0.11 (0-0.4) x10^3/uL D-Dimer (0.0-0.50) mg/L Sodium (137-145) mmol/L Potassium (3.5-5.1) mmol/L Chloride (98-107) mmol/L Carbon Dioxide (22-30) mmol/L Anion Gap (5-15) MEQ/L BUN (9-20) mg/dL Creatinine (0.66-1.25) mg/dL Estimated GFR ML/MIN Glucose (74-106) mg/dL Calcium (8.4-10.2) mg/dL Total Bilirubin (0.2-1.3) mg/dL AST (17-59) U/L ALT (0-50) U/L Alkaline Phosphatase (38-126) U/L Troponin I (0.000-0.034) ng/mL Serum Total Protein (6.3-8.2) g/dL Albumin (3.5-5.0) g/dL - Progress Progress: improved Air Movement: good Progress Note: 28-year-old male no significant past medical history presents to our ED for evaluation of chest pain. Patient advises he has been coughing at home. Slightly nauseous. Patient feeling well at this point. Workup essentially nonremarkable. Troponin negative. D-dimer negative. EKG reveals normal sinus rhythm. CBC CMP essentially nonremarkable. There is a slight leukocytosis of 12. Chest x-ray essentially nonremarkable. Patient likely experiencing a bronchitis given his lung exam and negative workup. Patient received a DuoNeb treatment in our ED along with Solu-Medrol. Prescription for prednisone albuterol inhaler forwarded to patient's pharmacy. Portions of this note were created with voice recognition technology. There may be grammatical, spelling, punctuation or sound alike errors Complexity of problem addressed is moderate acute complicated No critical care time Complexity of data reviewed and analyzed is moderate. Test ordered test reviewed. Results analyzed and correlated clinically with history and physical exam. Risk of complication and or risk of morbidity/mortality of patient management is moderate. A prescription for prednisone and albuterol inhaler forwarded to patient's pharmacy. Vital stable. Time spent to discharge patient is approximately 15 minutes. Plan of care established for shared decision making. No social determinants of health present impede follow-up. Portions of this note were created with voice recognition technology. There may be grammatical, spelling, punctuation or sound alike error 10/19/23 19:15 Blood Culture(s) Obtained: No Antibiotics given: No Counseled pt/family regarding: lab results, diagnosis, need for follow-up, rad results - Departure Departure Disposition: Home Clinical Impression: URI (upper respiratory infection), Nausea & vomiting, Chest pain Condition: Stable Critical Care Time: No Referrals: SANTOS ESPINAL NP [Primary Care Provider] - Follow up/PCP as directed Prescriptions: Prednisone 10 mg [Deltasone 10 mg] 40 mg PO DAILY 3 Days #12 tablet Albuterol 8 gm Mdi Hfa [Ventolin Hfa MDI] 8 gm IH Q4H #1
[2023-10-19 18:18] LABS: Absolute Neutrophil Ct (ANC) 7.66 x10^3/uL (1.4-6.9); BASOPHIL % 0.9 % (0.0-0.4); Basophil (Absolute #) 0.11 x10^3/uL (0-0.4); Eosinophil % 1.2 % (0.00-5.0); Eosinophil (Absolute #) 0.15 x10^3/uL (0-0.5); Hemoglobin 14.7 g/dL (12.5-18.0); IMMATURE GRAN # 0.09 x10^3u/L (0.00-0.03); IMMATURE GRAN % 0.7 % (0.00-0.4); Lymphocyte (Absolute #) 3.35 x10^3/uL (1.0-4.6); Lymphocytes % 27.4 % (24.0-44.0); Mean Cell Volume 88.2 fL (78-100); Mean Corpuscular Hemoglobin 29.5 pg (26-32); Mean Corpuscular Hgb Concent. 33.4 g/dL (32-36); Mean Platelet Volume 10.6 fL (7.5-11.0); Monocyte (Absolute #) 0.88 x10^3/uL (0.0-1.3); Monocytes % 7.2 % (0.0-12.0); Neutrophil % 62.6 % (36.0-66.0); Platelet Count 270 x10^3/uL (150-450); Red Blood Count 4.99 x10^6/uL (4.1-5.6); Red Cell Distribution Width 12.9 % (11.5-14.0); White Blood Count 12.2 x10^3/uL (4.0-10.5)
[2023-10-19 18:32] LABS: ALBUMIN 4.8 g/dL (3.5-5.0); BILIRUBIN,TOTAL 0.4 mg/dL (0.2-1.3); Calcium 9.4 mg/dL (8.4-10.2); Creatinine 1 1.07 mg/dL (0.66-1.25); EST GLOMERULAR FILTRATION RATE 97.5 ML/MIN; Potassium 3.9 mmol/L (3.5-5.1); Total Protein 7.5 g/dL (6.3-8.2)
[2023-10-19 18:56] LABS: INFLUENZA A NEGATIVE (NEGATIVE); INFLUENZA B NEGATIVE (NEGATIVE); RESPIRATORY SYNCTIAL VIRUS NEGATIVE (NEGATIVE); SARS-CoV-2 Xpert Express NEGATIVE (NEGATIVE)
[2023-10-19 19:09] VITALS: BP 119/68; O2SAT 98
[2023-10-19] MEDS ORDERED: solu-MEDROL 125 MG, Sterile H2O 10 ml 2 ML IV ONE ×2 (19:10)
[2023-10-19] MEDS ORDERED: DUONEB 0.5-3 MG/3 ml Neb IH ONE ×2 (19:10→19:14)
[2023-10-19] MEDS ORDERED: Sterile H2O 10 ml IJ ONE (19:19)
[2023-10-19] MEDS ORDERED: solu-MEDROL ONE (19:19)
[2023-10-19 19:20] VITALS: PULSE 86; RESP 16
--- NOTE | 2023-10-20 08:52 | XRAY ---
Indication: Short of breath and pain. Comparison: June 29, 2023 Portable apical lordotic chest again demonstrates normal heart, lungs, and bony thorax.
== END 2023-10-19 19:33 | disposition home or self-care (01) ==
LOC: ED 17:49
DX: J06.9 Acute upper respiratory infection, unspecified (principal); R07.9 Chest pain, unspecified; R11.2 Nausea with vomiting, unspecified; R09.81 Nasal congestion; I10 Essential (primary) hypertension; Z79.899 Other long term (current) drug therapy; Z79.52 Long term (current) use of systemic steroids; Z28.310 Unvaccinated for COVID-19; Z86.16 Personal history of COVID-19; Z72.0 Tobacco use
CPT/HCPCS: 0241U; 36000; 36415; 71045; 80053; 84484; 85025; 85379; 93005; 93041; 94640; 94760; 96374; 99284; J2930; A9270-GY

== ENCOUNTER 2024-05-23 19:58 | Emergency (ER) | payer MEDICAID ==
[2024-05-23 20:08] VITALS: BP 131/78; PULSE 85; RESP 18; TEMP 97.8; O2SAT 97
--- NOTE | 2024-05-23 20:30 | ERPHSYRPT ---
- History of Present Illness Time Seen by Provider: 05/23/24 20:27 Source: patient Exam Limitations: no limitations Patient Subjective Stated Complaint: tested covid postive at home today x2 Triage Nursing Assessment: pt ambulatory to bed by self, pt c/o of headache, body aches, sore throat, cough x2 days, afebrile, pt took 2 covid tests today and both were positive, pt states family member was recently diagnosed with covid as well Physician History: 28-year-old male presents to our emergency department for evaluation. Patient concerned that he has COVID. Patient complaining of generalized bodyaches headache sore throat ear pain dry cough. Patient tested positive for COVID 2 days ago. Symptoms have been ongoing for 2 to 3 days. Patient was exposed to somebody who was COVID-positive was triggered him to get checked. No other complaints. No nausea vomiting diarrhea. No rash no fever. No numbness tingling or weakness. No chest pain or shortness of breath. patient has no past medical history. 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 He voices no other complaints or concerns at this time. Portions of this note were created with voice recognition technology. There may be grammatical, spelling, punctuation or sound alike errors Timing/Duration: day(s) (3 days) Severity: moderate Modifying Factors: Improves With: nothing Associated Symptoms: denies symptoms Allergies/Adverse Reactions: sulfamethoxazole [From Bactrim] Allergy (Unknown, Verified 05/23/24 20:00) trimethoprim [From Bactrim] Allergy (Unknown, Verified 05/23/24 20:00) Home Medications: Famotidine 20 mg PO DAILY 05/23/24 [History] Ofloxacin [Ocuflox] 2 drops DROPS BID 05/23/24 [History] Hx Tetanus, Diphtheria Vaccination/Date Given: Yes Hx Influenza Vaccination/Date Given: No Hx Pneumococcal Vaccination/Date Given: No Travel Risk - International Travel Have you traveled outside of the country in past 3 weeks: No - Emerging Infectious Disease Are you exhibiting symptoms associated with any current EIDs: Yes Symptoms: Cough: New Onset, Diarrhea, Headaches/Body Aches/ - Review of Systems Constitutional: No Symptoms, No Fever, No Chills Eyes: No Symptoms Ears, Nose, & Throat: No Symptoms Respiratory: No Symptoms, No Cough, No Dyspnea Cardiac: No Symptoms, No Chest Pain, No Edema, No Syncope Abdominal/Gastrointestinal: No Symptoms, No Abdominal Pain, No Nausea, No Vomiting, No Diarrhea Genitourinary Symptoms: No Symptoms, No Dysuria Musculoskeletal: No Symptoms, No Back Pain, No Neck Pain Skin: No Symptoms, No Rash Neurological: No Symptoms, No Dizziness, No Focal Weakness, No Sensory Changes Psychological: No Symptoms Endocrine: No Symptoms Hematologic/Lymphatic: No Symptoms Immunological/Allergic: No Symptoms All Other Systems: Reviewed and Negative - Past Medical History Pertinent Past Medical History: Yes Cardiac History: Hypertension Respiratory History: Other GI Medical History: GERD Psycho-Social History: Depression Other Medical History: MRSA infection to LLE, COVID-19 X 2 - Past Surgical History Past Surgical History: Yes - Social History Smoking Status: Former smoker How long have you smoked: years Exposure to second hand smoke: Yes Drug Use: none Patient Lives Alone: No - Social Determinants of Health Will the patient participate in the screening: Yes Do you worry about a steady place to live?: No Do you have any problems with any of the following?: No known problems In the past 12 months,have you had to go without utilities?: No Transportation Issues: No Has anyone in your support network made you feel unsafe?: No Have you or anyone in your house had to go without enough: No - Nursing Vital Signs Nursing Vital Signs: Initial Vital Signs Temperature 97.8 F 05/23/24 20:03 Pulse Rate 85 05/23/24 20:03 Respiratory Rate 18 05/23/24 20:03 Blood Pressure 131/78 05/23/24 20:03 O2 Sat by Pulse Oximetry 97 05/23/24 20:03 Pain Scale Pain Intensity 8 - Physical Exam General Appearance: no apparent distress, alert Eye Exam: PERRL/EOMI, eyes nml inspection Ears, Nose, Throat Exam: normal ENT inspection, TMs normal, pharynx normal, moist mucous membranes Neck Exam: normal inspection, non-tender, supple, full range of motion Respiratory Exam: normal breath sounds, lungs clear, airway intact, No respi ratory distress Cardiovascular Exam: regular rate/rhythm, normal heart sounds, normal peripheral pulses Gastrointestinal/Abdomen Exam: soft, normal bowel sounds, No tenderness, No mass Back Exam: normal inspection, normal range of motion, No CVA tenderness, No vertebral tenderness Extremity Exam: normal inspection, normal range of motion, pelvis stable Neurologic Exam: alert, oriented x 3, cooperative, normal mood/affect, nml cerebellar function, nml station & gait, sensation nml, No motor deficits Skin Exam: normal color, warm, dry, No rash Lymphatic Exam: No adenopathy SpO2 Interpretation: normal SpO2: 97 O2 Delivery: Room Air - Course Nursing assessment & vital signs reviewed: Yes EKG Interpreted by Me: RATE ([id number]), Sinus Rhythm, NORMAL AXIS, NORMAL INTERVALS, NORMAL QRS Ordered Tests: Medication Summary Discontinued Medications Generic Name Dose Route Start Last Admin Trade Name Clarissa PRN Reason Stop Dose Admin Ketorolac Tromethamine 60 mg 05/23/24 20:30 Ketorolac Tromethamine 30 Mg/Ml Inj IM 05/23/24 20:31 STAT ONE - Progress Progress: improved Progress Note: 28-year-old male presents to our emergency department for evaluation of headache body aches sore throat ear pain cough. Patient tested positive for COVID 2 days ago. Physical exam nonremarkable. Vitals within normal limits. Patient received Toradol for symptom management. A prescription for the same was forwarded to patient's pharmacy. Patient otherwise feels well. He voices no other complaints or concerns at this time. Screening EKG performed by staff was essentially normal. Heart rate 87 sinus rhythm normal intervals normal axis normal QRS complex. No ischemic changes Portions of this note were created with voice recognition technology. There may be grammatical, spelling, punctuation or sound alike errors Complexity problem addressed is moderate acute complicated no critical care time. Complexity of data reviewed and analyzed is none. No specialized testing ordered. Diagnosis made based on history and physical exam. Risk of complication and or risk of morbidity/mortality patient management is moderate. A prescription for Toradol forwarded to patient's pharmacy. Vital stable. Time spent to discharge patient is approximately 10 minutes. Plan of care established for shared decision making. No social determinants of health present impede follow-up. Portions of this note were created with voice recognition technology. There may be grammatical, spelling, punctuation or sound alike errors 05/23/24 20:36 05/23/24 20:40 Counseled pt/family regarding: diagnosis, need for follow-up - Departure Departure Disposition: Home Clinical Impression: COVID-19 Condition: Stable Critical Care Time: No Referrals: SANTOS ESPINAL NP [Primary Care Provider] - Follow up/PCP as directed Additional Instructions: Discharge/Care Plan CAMRYN BELCHER was seen on 05/23/24 in the Emergency Room. The patient was counseled regarding Diagnosis,Lab results, Imaging studies, need for follow up and when to return to the Emergency Room. Prescriptions given: Discharge Note I have spoken with the patient and/or caregivers. I have explained the patient's condition, diagnosis and treatment plan based on the information available to me at this time. I have answered the patient's and/or caregiver's questions and addressed any concerns. The patient and/or caregivers have as good understanding of the patient's diagnosis, condition and treatment plan as can be expected at this point. The vital signs have been stable. The patient's condition is stable and appropriate for discharge from the emergency department. The patient will pursue further outpatient evaluation with the primary care physician or other designated or consulting physician as outlined in the discharge instructions. The patient and/or caregivers are agreeable to this plan of care and follow-up instructions have been explained in detail. The patient and/or caregivers have received these instruction. The patient/and or caregivers are aware that any significant change in condition or worsening of symptoms should prompt an immediate return to this or the closest emergency department or call 911. Prescriptions: Ketorolac Trometh 10 mg Tab [TORAdol 10 MG TABLET] 10 mg PO TID 5 Days #15 tablet
[2024-05-23] MEDS ORDERED: TORAdol 30 mg Injection ONE (20:33)
[2024-05-23] MEDS: TORAdol 30 mg Injection IM ONE (20:35)
== END 2024-05-23 20:59 | disposition home or self-care (01) ==
LOC: ED 19:58
DX: U07.1 COVID-19 (principal); M79.10 Myalgia, unspecified site; R51.9 Headache, unspecified; J02.9 Acute pharyngitis, unspecified; H92.09 Otalgia, unspecified ear; R05.9 Cough, unspecified; Z20.822 Contact with and (suspected) exposure to COVID-19; I10 Essential (primary) hypertension; Z79.899 Other long term (current) drug therapy
CPT/HCPCS: 93005; 96372; 99283; J1885

== ENCOUNTER 2024-07-10 00:21 | Emergency (ER) | payer MEDICAID ==
--- NOTE | 2024-07-10 00:26 | ERPHSYRPT ---
- History of Present Illness Time Seen by Provider: 07/10/24 00:26 Historian: patient Exam Limitations: no limitations Physician History: This is a 28-year-old white male patient has no documented history of coronary artery disease and presents to the emergency department with intermittent mid substernal chest pain and radiates to the left of midline. Is described as sharp. He is not short of breath. He was placed on propranolol by his primary care provider, nurse practitioner Christiano. He has not had a cough. He has not had fevers. Patient heart score is low. Patient has a history of hypertension, gastroesophageal reflux disease and anxiety/depression. He is a light tobacco smoker. I reviewed twelve-lead EKG dated 06/29/2023. That twelve-lead EKG had a normal sinus rhythm at 84 bpm, normal axis, normal deviation and normal intervals without evidence of ischemia. Timing/Duration: day(s) (Last 2 to 3 days intermittently), intermittent Quality: sharpness Location: substernal Chest Pain Radiation: no radiation Severity of Pain-Max: mild Severity of Pain-Current: mild Modifying Factors: Improves With: nothing Associated Symptoms: denies symptoms Nitro Today/Relief: no nitro taken today Aspirin Treatment Today: 81 mg x 2, provided at home, provided by ED (2 x 81 mg) Allergies/Adverse Reactions: sulfamethoxazole [From Bactrim] Allergy (Unknown, Verified 07/10/24 00:27) trimethoprim [From Bactrim] Allergy (Unknown, Verified 07/10/24 00:27) Home Medications: Famotidine 20 mg PO DAILY 05/23/24 [History] Propranolol HCl 60 mg PO DAILY 07/10/24 [History] Hx Tetanus, Diphtheria Vaccination/Date Given: Yes Hx Influenza Vaccination/Date Given: No Hx Pneumococcal Vaccination/Date Given: No Travel Risk - International Travel Have you traveled outside of the country in past 3 weeks: No - Emerging Infectious Disease Are you exhibiting symptoms associated with any current EIDs: Yes Symptoms: Cough: New Onset, Diarrhea, Headaches/Body Aches/ - Review of Systems Constitutional: No Symptoms Eyes: No Symptoms Ears, Nose, & Throat: No Symptoms Respiratory: No Symptoms Cardiac: Chest Pain Abdominal/Gastrointestinal: No Symptoms Genitourinary Symptoms: No Symptoms Musculoskeletal: No Symptoms Skin: No Symptoms Neurological: No Symptoms Psychological: No Symptoms Endocrine: No Symptoms Hematologic/Lymphatic: No Symptoms Immunological/Allergic: No Symptoms All Other Systems: Reviewed and Negative - Past Medical History Pertinent Past Medical History: Yes Cardiac History: Hypertension Respiratory History: Other GI Medical History: GERD Psycho-Social History: Depression Other Medical History: MRSA infection to LLE, COVID-19 X 2 - Past Surgical History Past Surgical History: Yes - Social History Smoking Status: Former smoker How long have you smoked: years Exposure to second hand smoke: Yes Drug Use: none Patient Lives Alone: No - Social Determinants of Health Will the patient participate in the screening: Yes Do you worry about a steady place to live?: No In the past 12 months,have you had to go without utilities?: No Transportation Issues: No Has anyone in your support network made you feel unsafe?: No Have you or anyone in your house had to go without enough: No - Nursing Vital Signs Nursing Vital Signs: Initial Vital Signs Temperature 97.4 F 07/10/24 00:25 Pulse Rate 66 07/10/24 00:25 Respiratory Rate 22 07/10/24 00:25 Blood Pressure 149/101 07/10/24 00:25 O2 Sat by Pulse Oximetry 99 07/10/24 00:25 Pain Scale Pain Intensity 7 - Physical Exam General Appearance: no apparent distress, alert, anxiety Eye Exam: PERRL/EOMI, eyes nml inspection Ears, Nose, Throat Exam: normal ENT inspection, moist mucous membranes Neck Exam: normal inspection, non-tender, supple, full range of motion Respiratory Exam: normal breath sounds, lungs clear, airway intact, No chest tenderness, No respiratory distress Cardiovascular Exam: regular rate/rhythm, normal heart sounds, normal peripheral pulses Gastrointestinal/Abdomen Exam: soft, normal bowel sounds, No tenderness Rectal Exam: not done Back Exam: normal inspection, normal range of motion, No CVA tenderness, No vertebral tenderness Extremity Exam: normal inspection, normal range of motion, pelvis stable Neurologic Exam: alert, oriented x 3, cooperative, 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 QTc is 413.) Ordered Tests: Active Orders 24 hr Category Date Time Status EKG-ER Only STAT Care 07/10/24 00:26 Active Pulse Oximetry (ED) STAT Care 07/10/24 00:26 Active CHEST 1 VIEW (PORTABLE) Stat Exams 07/10/24 00:27 Taken CBC W DIFF Stat Lab 07/10/24 00:45 Completed CMP Stat Lab 07/10/24 00:45 Completed D-DIMER QUANTITATIVE Stat Lab 07/10/24 00:45 Completed TROPONIN Q4H Lab 07/10/24 00:45 Completed TROPONIN Q4H Lab 07/10/24 04:30 Ordered TROPONIN Q4H Lab 07/10/24 08:30 Ordered Medication Summary Discontinued Medications Generic Name Dose Route Start Last Admin Trade Name Freq PRN Reason Stop Dose Admin Aspirin 324 mg 07/10/24 00:26 07/10/24 00:39 Aspirin 81 Mg Tab.Chew PO 07/10/24 00:27 Not Given STAT ONE Aspirin Confirm 07/10/24 00:35 Aspirin 81 Mg Tab.Chew Administered 07/10/24 00:36 Dose 324 mg .ROUTE .STK-MED ONE Aspirin 162 mg 07/10/24 00:38 07/10/24 00:40 Aspirin 81 Mg Tab.Chew PO 07/10/24 00:39 162 mg STAT ONE Administration Lab/Rad Data: Laboratory Result Diagrams 07/10/24 00:45 07/10/24 00:45 Laboratory Results 07/10/24 07/10/24 07/10/24 Range/Units 00:45 00:45 00:45 WBC (4.23-9.07) x10^3/uL RBC (4.63-6.08) x10^6/uL Hgb (13.7-17.5) g/dL Hct (40.1-51.0) % MCV (79.0-92.2) fL MCH (25.7-32.2) pg MCHC (32.3-36.5) g/dL RDW (11.6-14.4) % Plt Count (163-337) x10^3/uL MPV (9.4-12.4) fL Gran % (34.0-67.9) % Immature Gran % (Auto) (0.001-0.429) % Nucleat RBC Rel Count (0.00-0.2) % Eos # (Auto) (0.04-0.54) x10^3/uL Immature Gran # (Auto) (0.001-0.031) x10^3u/L Absolute Lymphs (auto) (1.32-3.57) x10^3/uL Absolute Monos (auto) (0.30-0.82) x10^3/uL Absolute Nucleated RBC (0.00-0.012) x10^3u/L Lymphocytes % (21.8-53.1) % Monocytes % (5.3-12.2) % Eosinophils % (0.8-7.0) % Basophils % (0.2-1.2) % Absolute Granulocytes (1.78-5.38) x10^3/uL Basophils # (0.01-0.08) x10^3/uL D-Dimer < 0.19 (0.0-0.50) mg/L Sodium 142 (135-145) mmol/L Potassium 4.0 (3.5-5.1) mmol/L Chloride 106 (98-107) mmol/L Carbon Dioxide 26 (22-30) mmol/L Anion Gap 14.0 (5-15) MEQ/L BUN 23 H (9-20) mg/dL Creatinine 1.32 H (0.66-1.25) mg/dL Estimated GFR 75.8 ML/MIN Glucose 95 (74-106) mg/dL Calcium 9.4 (8.4-10.2) mg/dL Total Bilirubin 0.40 (0.2-1.3) mg/dL AST 43 (17-59) U/L ALT 70 H (0-50) U/L Alkaline Phosphatase 87 (38-126) U/L Troponin I < 0.012 (0.000-0.033) ng/mL Serum Total Protein 7.2 (6.3-8.2) g/dL Albumin 4.5 (3.5-5.0) g/dL 07/10/24 Range/Units 00:45 WBC 7.9 (4.23-9.07) x10^3/uL RBC 4.88 (4.63-6.08) x10^6/uL Hgb 14.3 (13.7-17.5) g/dL Hct 43.3 (40.1-51.0) % MCV 88.7 (79.0-92.2) fL MCH 29.3 (25.7-32.2) pg MCHC 33.0 (32.3-36.5) g/dL RDW 13.0 (11.6-14.4) % Plt Count 274 (163-337) x10^3/uL MPV 11.0 (9.4-12.4) fL Gran % 40.9 (34.0-67.9) % Immature Gran % (Auto) 0.3 (0.001-0.429) % Nucleat RBC Rel Count 0.0 (0.00-0.2) % Eos # (Auto) 0.14 (0.04-0.54) x10^3/uL Immature Gran # (Auto) 0.02 (0.001-0.031) x10^3u/L Absolute Lymphs (auto) 3.65 H (1.32-3.57) x10^3/uL Absolute Monos (auto) 0.77 (0.30-0.82) x10^3/uL Absolute Nucleated RBC 0.00 (0.00-0.012) x10^3u/L Lymphocytes % 46.2 (21.8-53.1) % Monocytes % 9.7 (5.3-12.2) % Eosinophils % 1.8 (0.8-7.0) % Basophils % 1.1 (0.2-1.2) % Absolute Granulocytes 3.23 (1.78-5.38) x10^3/uL Basophils # 0.09 H (0.01-0.08) x10^3/uL D-Dimer (0.0-0.50) mg/L Sodium (135-145) mmol/L Potassium (3.5-5.1) mmol/L Chloride (98-107) mmol/L Carbon Dioxide (22-30) mmol/L Anion Gap (5-15) MEQ/L BUN (9-20) mg/dL Creatinine (0.66-1.25) mg/dL Estimated GFR ML/MIN Glucose (74-106) mg/dL Calcium (8.4-10.2) mg/dL Total Bilirubin (0.2-1.3) mg/dL AST (17-59) U/L ALT (0-50) U/L Alkaline Phosphatase (38-126) U/L Troponin I (0.000-0.033) ng/mL Serum Total Protein (6.3-8.2) g/dL Albumin (3.5-5.0) g/dL - Progress Progress: improved, re-examined Air Movement: good Progress Note: 07/10/24 00:48 My medical decision making and the assignment of moderate complexity to this patient's medical issue today is based on review of the patient's past medical history, reviewed patient's medication list, reviewed patient drug allergy list, history present illness and physical findings on examination. The workup in this patient includes CBC, CMP, troponin level, D-dimer level, twelve-lead EKG, and chest x-ray. Differential diagnosis includes muscle skeletal pain, arrhythmia, myocardial infarction, electrolyte abnormalities, pulmonary embolus 07/10/24 01:15 I interpreted the preliminary chest x-ray report. There is no evidence of any acute cardiopulmonary process. I interpreted the patient's laboratory data results. Based on the laboratory data results, there are no acute, emergent medical issues. Blood Culture(s) Obtained: No Antibiotics given: No Counseled pt/family regarding: lab results, diagnosis, need for follow-up, rad results Medical Desision Making - Diagnostic Testing Diagnostic test were ordered, analyzed, and reviewed by me: Yes Radiological Interpretation: Interpreted by me - Risk of complications Low Risk: Low risk of morbidity from additional dx testing or treatment - Departure Departure Disposition: Home Clinical Impression: Nonspecific chest pain Condition: Stable Critical Care Time: No Referrals: SANTOS ESPINAL NP [Primary Care Provider] - Follow up/PCP as directed Additional Instructions: Call your primary care provider later today, to make arrangements for follow-up appointment for further evaluation management and to be seen in next 3 to 5 days for further management including stress test or referral to tag writer if indicated.
[2024-07-10 00:28] VITALS: TEMP 97.4
[2024-07-10] MEDS ORDERED: BABY ASPIRIN 81 MG CHEW ONE (00:35)
[2024-07-10] MEDS: BABY ASPIRIN 81 MG CHEW PO ONE ×2 (00:39→00:40)
[2024-07-10 00:51] LABS: Absolute Neutrophil Ct (ANC) 3.23 x10^3/uL (1.78-5.38); BASOPHIL % 1.1 % (0.2-1.2); Basophil (Absolute #) 0.09 x10^3/uL (0.01-0.08); Eosinophil % 1.8 % (0.8-7.0); Eosinophil (Absolute #) 0.14 x10^3/uL (0.04-0.54); Hematocrit 43.3 % (40.1-51.0); Hemoglobin 14.3 g/dL (13.7-17.5); IMMATURE GRAN # 0.02 x10^3u/L (0.001-0.031); IMMATURE GRAN % 0.3 % (0.001-0.429); Lymphocyte (Absolute #) 3.65 x10^3/uL (1.32-3.57); Lymphocytes % 46.2 % (21.8-53.1); Mean Cell Volume 88.7 fL (79.0-92.2); Mean Corpuscular Hemoglobin 29.3 pg (25.7-32.2); Monocyte (Absolute #) 0.77 x10^3/uL (0.30-0.82); Monocytes % 9.7 % (5.3-12.2); Neutrophil % 40.9 % (34.0-67.9); Platelet Count 274 x10^3/uL (163-337); Red Blood Count 4.88 x10^6/uL (4.63-6.08); White Blood Count 7.9 x10^3/uL (4.23-9.07)
[2024-07-10 01:03] VITALS: BP 119/68; PULSE 73; RESP 18; O2SAT 95
[2024-07-10 01:13] LABS: ALBUMIN 4.5 g/dL (3.5-5.0); BILIRUBIN,TOTAL 0.4 mg/dL (0.2-1.3); Calcium 9.4 mg/dL (8.4-10.2); Creatinine 1 1.32 mg/dL (0.66-1.25); EST GLOMERULAR FILTRATION RATE 75.8 ML/MIN; Total Protein 7.2 g/dL (6.3-8.2)
--- NOTE | 2024-07-10 09:17 | XRAY ---
Indication: Chest pain. Comparison: October 19, 2023 Portable apical lordotic chest again demonstrates normal heart, lungs, and bony thorax.
== END 2024-07-10 01:36 | disposition home or self-care (01) ==
LOC: ED 00:21
DX: R07.9 Chest pain, unspecified (principal); I10 Essential (primary) hypertension; K21.9 Gastro-esophageal reflux disease without esophagitis; F41.9 Anxiety disorder, unspecified; F17.200 Nicotine dependence, unspecified, uncomplicated; Z79.899 Other long term (current) drug therapy; Z86.16 Personal history of COVID-19
CPT/HCPCS: 36415; 71045; 80053; 84484; 85025; 85379; 93005; 94760; 99283; A9270-GY

== ENCOUNTER 2024-10-02 20:39 | Emergency (ER) | payer MEDICAID ==
[2024-10-02 20:55] VITALS: PULSE 81; RESP 18; TEMP 98.9; O2SAT 97
[2024-10-02 20:56] VITALS: BP 132/81
[2024-10-02] MEDS ORDERED: XYLOCAINE 1% HCL 20 ML MDV ONE (21:11)
[2024-10-02] MEDS: XYLOCAINE 1% HCL 20 ML MDV IJ ONE (21:14)
--- NOTE | 2024-10-02 21:23 | ERPHSYRPT ---
- History of Present Illness Time Seen by Provider: 10/02/24 21:00 Source: patient Exam Limitations: no limitations Patient Subjective Stated Complaint: Pt. states, "I have an ingrown toenail and it's been hurting really bad for last 3 days and i got some pus out of it." Triage Nursing Assessment: Pt. ambulated to room without difficulty, a&ox3, resp even unlabored. able to move all 4 ext. without diff. Right great toenail, medial aspect is red, swollen and inflamed Physician History: 29-year-old male presents to our ED for evaluation and treatment of a right ingrown toenail. Patient states symptoms started approximately 3 days ago. Pain is constant. Patient has pain when he ambulates. Patient works as a sales lead generator and states that the pain is interfering with his work. Patient reports he is a borderline diabetic. No trauma no fever patient otherwise feels well he voices no other complaints or concerns at this time. Portions of this note were created with voice recognition technology. There may be grammatical, spelling, punctuation or sound alike errors Timing/Duration: day(s) (3 days) Severity: moderate Modifying Factors: Improves With: nothing Associated Symptoms: denies symptoms Allergies/Adverse Reactions: sulfamethoxazole [From Bactrim] Allergy (Unknown, Verified 07/10/24 00:27) trimethoprim [From Bactrim] Allergy (Unknown, Verified 07/10/24 00:27) Home Medications: Famotidine 20 mg PO DAILY 05/23/24 [History] Losartan Potassium 1 tab PO DAILY 10/02/24 [History] Rosuvastatin Calcium [Ezallor Sprinkle] 1 cap PO DAILY 10/02/24 [History] Hx Tetanus, Diphtheria Vaccination/Date Given: Yes Hx Influenza Vaccination/Date Given: No Hx Pneumococcal Vaccination/Date Given: No Immunizations Up to Date: No Travel Risk - International Travel Have you traveled outside of the country in past 3 weeks: No - Emerging Infectious Disease Are you exhibiting symptoms associated with any current EIDs: No Symptoms: Cough: New Onset, Diarrhea, Headaches/Body Aches/ - Review of Systems Constitutional: No Symptoms, No Fever, No Chills Eyes: No Symptoms Ears, Nose, & Throat: No Symptoms Respiratory: No Symptoms, No Cough, No Dyspnea Cardiac: No Symptoms, No Chest Pain, No Edema, No Syncope Abdominal/Gastrointestinal: No Symptoms, No Abdominal Pain, No Nausea, No Vomiting, No Diarrhea Genitourinary Symptoms: No Symptoms, No Dysuria Musculoskeletal: No Symptoms, No Back Pain, No Neck Pain Skin: No Symptoms, No Rash Neurological: No Symptoms, No Dizziness, No Focal Weakness, No Sensory Changes Psychological: No Symptoms Endocrine: No Symptoms Hematologic/Lymphatic: No Symptoms Immunological/Allergic: No Symptoms All Other Systems: Reviewed and Negative - Past Medical History Pertinent Past Medical History: Yes Neurological History: No Pertinent History ENT History: No Pertinent History Cardiac History: Hypertension Respiratory History: Other Endocrine Medical History: No Pertinent History Musculoskeletal History: No Pertinent History GI Medical History: GERD History: No Pertinent History Psycho-Social History: Depression Male Reproductive Disorders: No Pertinent History Other Medical History: MRSA infection to LLE, COVID-19 X 2 - Past Surgical History Past Surgical History: Yes - Social History Smoking Status: Never smoker How long have you smoked: years Exposure to second hand smoke: Yes Drug Use: none Patient Lives Alone: No - Social Determinants of Health Will the patient participate in the screening: Yes Do you worry about a steady place to live?: No Do you have any problems with any of the following?: No known problems In the past 12 months,have you had to go without utilities?: No Transportation Issues: No Has anyone in your support network made you feel unsafe?: No Have you or anyone in your house had to go without enough: No - Nursing Vital Signs Nursing Vital Signs: Initial Vital Signs Temperature 98.9 F 10/02/24 20:47 Pulse Rate 81 10/02/24 20:47 Respiratory Rate 18 10/02/24 20:47 Blood Pressure 132/81 10/02/24 20:47 O2 Sat by Pulse Oximetry 97 10/02/24 20:47 Pain Scale Pain Intensity 10 - Physical Exam General Appearance: no apparent distress, alert Eye Exam: PERRL/EOMI, eyes nml inspection Ears, Nose, Throat Exam: normal ENT inspection, TMs normal, pharynx normal, moist mucous membranes Neck Exam: normal inspection, non-tender, supple, full range of motion Respiratory Exam: normal breath sounds, lungs clear, No respiratory distress Cardiovascular Exam: regular rate/rhythm, normal heart sounds, normal peripheral pulses Gastrointestinal/Abdomen Exam: soft, normal bowel sounds, No tenderness, No mass Back Exam: normal inspection, normal range of motion, No CVA tenderness, No vertebral tenderness Extremity Exam: normal inspection, normal range of motion, pelvis stable Neurologic Exam: alert, oriented x 3, cooperative, normal mood/affect, sensation nml, No motor deficits Skin Exam: normal color, warm, dry, No rash Lymphatic Exam: No adenopathy SpO2 Interpretation: normal SpO2: 97 O2 Delivery: Room Air - Course Nursing assessment & vital signs reviewed: Yes Ordered Tests: Medication Summary Discontinued Medications Generic Name Dose Route Start Last Admin Trade Name Clarissa PRN Reason Stop Dose Admin Cephalexin HCl 500 mg 10/02/24 21:22 Cephalexin Mh500 Mg Capsule PO 10/02/24 21:23 STAT ONE Lidocaine HCl Confirm 10/02/24 21:11 Lidocaine Hcl 1% 20 Ml Mdv 20 Ml Ml Administered 10/02/24 21:12 Dose 5 ml .ROUTE .STK-MED ONE Lidocaine HCl 5 ml 10/02/24 21:12 10/02/24 21:14 Lidocaine Hcl 1% 20 Ml Mdv 20 Ml Ml IJ 10/02/24 21:13 5 ml STAT ONE Administration - Progress Progress: improved Progress Note: Procedure note for removal of ingrown toenail Verbal consent obtained. The right great toe was prepped in a standard sterile fashion. Alcohol was used to clean the area. Digital block completed using 5 cc of 1% lidocaine no epinephrine. After confirmation of local anesthesia the ingrown toenail was freed using the hemostat. The excess toenail/ingrown nail was excised using scissors. Excision of the entire ingrown toenail was confirmed. Patient tolerated procedure well. No intra or postprocedural complications. Digit neurovascular intact distally post procedure. Minimal blood loss. Excellent hemostasis. The area was dressed with Xeroform and a bulky dressing. Patient received an oral dose of Keflex in our ED as he is allergic to Bactrim. Portions of this note were created with voice recognition technology. There may be grammatical, spelling, punctuation or sound alike errors 10/02/24 21:30 29-year-old male borderline diabetic presents to our ED with ingrown toenail. Toenail was excised. See procedure note above. Patient tolerated procedure well. Patient received oral antibiotic in our ED. A prescription for the same forwarded to patient's pharmacy. Patient tolerated procedure well. Bulky dressing applied. The involved digit neurovascular intact distally post procedure and post dressing application. Patient advised to follow-up with primary care doctor within 48 hours for reevaluation. Portions of this note were created with voice recognition technology. There may be grammatical, spelling, punctuation or sound alike errors Complexity of problem addressed is moderate acute complicated no critical care time complex of data reviewed and analyzed is none. No specialized testing ordered. Risk of complication and or risk of morbidity/mortality of patient management is moderate. A prescription for Keflex forwarded to patient's pharmacy. Vital stable. Time spent to discharge patient is approximately 10 minutes. Plan of care established for shared decision making. No social determinants of health present to impede follow-up. Portions of this note were created with voice recognition technology. There may be grammatical, spelling, punctuation or sound alike errors Counseled pt/family regarding: diagnosis, need for follow-up - Departure Departure Disposition: Home Clinical Impression: Ingrown toenail of right foot Condition: Stable Critical Care Time: No Referrals: SANTOS ESPINAL NP [Primary Care Provider] - Follow up/PCP as directed Additional Instructions: Discharge/Care Plan SIMICAMRYN JYOTI was seen on 10/02/24 in the Emergency Room. The patient was counseled regarding Diagnosis,Lab results, Imaging studies, need for follow up and when to return to the Emergency Room. Prescriptions given: Discharge Note I have spoken with the patient and/or caregivers. I have explained the patient's condition, diagnosis and treatment plan based on the information available to me at this time. I have answered the patient's and/or caregiver's questions and addressed any concerns. The patient and/or caregivers have as good understanding of the patient's diagnosis, condition and treatment plan as can be expected at this point. The vital signs have been stable. The patient's condition is stable and appropriate for discharge from the emergency department. The patient will pursue further outpatient evaluation with the primary care physician or other designated or consulting physician as outlined in the discharge instructions. The patient and/or caregivers are agreeable to this plan of care and follow-up instructions have been explained in detail. The patient and/or caregivers have received these instruction. The patient/and or caregivers are aware that any significant change in condition or worsening of symptoms should prompt an immediate return to this or the closest emergency department or call 911. Prescriptions: Cephalexin Mh 500 mg [Keflex 500 mg] 500 mg PO TID #21 cap Ketorolac Trometh 10 mg Tab [TORAdol 10 MG TABLET] 10 mg PO TID 5 Days #15 tablet
[2024-10-02] MEDS ORDERED: KEFLEX 500 MG ONE (21:29)
[2024-10-02] MEDS: KEFLEX 500 MG PO ONE (21:30)
== END 2024-10-02 21:51 | disposition home or self-care (01) ==
LOC: ED 20:39
DX: L60.0 Ingrowing nail (principal)
CPT/HCPCS: 11750; 96372; 99283; A9270-GY

== ENCOUNTER 2024-10-20 20:15 | Emergency (ER) | payer MEDICAID ==
[2024-10-20 21:47] VITALS: TEMP 98
--- NOTE | 2024-10-20 22:02 | ERPHSYRPT ---
- History of Present Illness Time Seen by Provider: 10/20/24 22:02 Source: patient, family Exam Limitations: no limitations Patient Subjective Stated Complaint: pt states he has infection around his toenail. lt foot, 1st digit Triage Nursing Assessment: pt alert and oriented, answers questions approp. pt ambulates to room with steady gait noted. respirations nonlabored. skin warm and dry. redness and swelling around toenail on lt foot, 1st digit. Physician History: This is a morbidly obese 29-year-old white male patient who has a history of recurrent ingrown toenails and presents with worsening pain in the left first toe secondary to bilateral ingrown toenails of the first toe. Patient has not had a fever. Approximately 2 weeks ago patient underwent partial nail removal to relieve similar issue with his right great toe. The pain is worse with palpation and pressure. Patient is on his feet chronically for his work. Patient has a history of gastroesophageal reflux disease, hypertension hyperlipidemia and depression Quality: constant, stabbing, throbbing Severity of Pain-Max: moderate Severity of Pain-Current: moderate Lower Extremities Pain: 1st toe: left (Ingrown, infected toenail on both sides of his toenail) Modifying Factors: Improves With: other (Ambulating and palpation) Associated Symptoms: other (Hurts to bear weight) Allergies/Adverse Reactions: sulfamethoxazole [From Bactrim] Allergy (Unknown, Verified 10/20/24 21:46) trimethoprim [From Bactrim] Allergy (Unknown, Verified 10/20/24 21:46) Home Medications: Famotidine 20 mg PO DAILY 05/23/24 [History] Losartan Potassium 1 tab PO DAILY 10/02/24 [History] Rosuvastatin Calcium [Ezallor Sprinkle] 1 cap PO DAILY 10/02/24 [History] Propranolol HCl [Propranolol HCl ER] 60 mg PO DAILY 10/20/24 [History] Hx Tetanus, Diphtheria Vaccination/Date Given: Yes Hx Influenza Vaccination/Date Given: No Hx Pneumococcal Vaccination/Date Given: No Immunizations Up to Date: Yes Travel Risk - International Travel Have you traveled outside of the country in past 3 weeks: No - Emerging Infectious Disease Are you exhibiting symptoms associated with any current EIDs: No Symptoms: Cough: New Onset, Diarrhea, Headaches/Body Aches/ - Review of Systems Constitutional: No Symptoms Eyes: No Symptoms Ears, Nose, & Throat: No Symptoms Respiratory: No Symptoms Cardiac: No Symptoms Abdominal/Gastrointestinal: No Symptoms Genitourinary Symptoms: No Symptoms Musculoskeletal: Other (Ingrown toenail left great toe with evidence of infection) Skin: No Symptoms Neurological: No Symptoms Psychological: No Symptoms Endocrine: No Symptoms Hematologic/Lymphatic: No Symptoms Immunological/Allergic: No Symptoms All Other Systems: Reviewed and Negative - Past Medical History Pertinent Past Medical History: Yes Neurological History: No Pertinent History ENT History: No Pertinent History Cardiac History: Hypertension Respiratory History: Other Endocrine Medical History: No Pertinent History Musculoskeletal History: No Pertinent History GI Medical History: GERD History: No Pertinent History Psycho-Social History: Depression Male Reproductive Disorders: No Pertinent History Other Medical History: MRSA infection to LLE, COVID-19 X 2 - Past Surgical History Past Surgical History: Yes - Social History Smoking Status: Former smoker How long have you smoked: years Exposure to second hand smoke: Yes Drug Use: none Patient Lives Alone: No - Social Determinants of Health Will the patient participate in the screening: Yes Do you worry about a steady place to live?: No Do you have any problems with any of the following?: No known problems In the past 12 months,have you had to go without utilities?: No Transportation Issues: No Has anyone in your support network made you feel unsafe?: No Have you or anyone in your house had to go without enough: No - Nursing Vital Signs Nursing Vital Signs: Initial Vital Signs Temperature 98.0 F 10/20/24 21:31 Pulse Rate 80 10/20/24 21:31 Respiratory Rate 16 10/20/24 21:31 Blood Pressure 130/82 10/20/24 21:31 O2 Sat by Pulse Oximetry 97 10/20/24 21:31 Pain Scale Pain Intensity 10 - Physical Exam General Appearance: no apparent distress, alert, anxiety, obese Eyes, Ears, Nose, Throat Exam: normal ENT inspection, moist mucous membranes Neck Exam: normal inspection, non-tender, supple, full range of motion Cardiovascular/Respiratory Exam: chest non-tender, no respiratory distress Gastrointestinal/Abdominal Exam: non-tender Back Exam: normal inspection, normal range of motion, No CVA tenderness, No vertebral tenderness Hips Exam: bilateral: non-tender, normal inspection, normal range of motion, no evidence of injury Legs Exam: bilateral leg: non-tender, normal inspection, normal range of motion, no evidence of injury Knees Exam: bilateral knee: non-tender, normal inspection, normal range of motion, no evidence of injury Ankle Exam: bilateral ankle: non-tender, normal inspection, normal range of motion, no evidence of injury Foot Exam: right foot: non-tender, normal inspection, normal range of motion, no evidence of injury, left foot: other (Great toe with infection and ingrown toenail on both sides) Neuro/Tendon Exam: normal sensation, normal motor functions, normal tendon functions, responds to pain, no evidence tendon injury Mental Status Exam: alert, oriented x 3, cooperative Skin Exam: normal color, warm, dry SpO2 Interpretation: normal SpO2: 97 O2 Delivery: Room Air Procedures - Additional Procedures Progress: Procedure note: Time of procedure 2309. Timeout performed. Left great toe prepped with Betadine. Local anesthesia with a total of 3-1/2 mL of 1% lidocaine plain. Using scissors and hemostat, portion of both the medial and lateral nails that were embedded into the subcutaneous tissue causing infection pain was removed. There were no complications. The patient tolerated the procedure well. The site was cleaned dried and Band-Aid was placed about this site. - Course Nursing assessment & vital signs reviewed: Yes Ordered Tests: Medication Summary Discontinued Medications Generic Name Dose Route Start Last Admin Trade Name Clarissa PRN Reason Stop Dose Admin Hydrocodone Bitart/Acetaminophen 1 tab 10/20/24 23:23 Hydrocodone/Apap 5/325 1 Tab Tablet PO 10/20/24 23:24 STAT ONE Hydrocodone Bitart/Acetaminophen 2 tab 10/20/24 23:24 Hydrocodone/Apap 5/325 1 Tab Tablet PO 10/20/24 23:25 SENT HOME W/ PATIENT ONE Cephalexin HCl 500 mg 10/20/24 23:23 Cephalexin Mh500 Mg Capsule PO 10/20/24 23:24 STAT ONE Lidocaine HCl Confirm 10/20/24 22:30 Lidocaine Hcl 1% 20 Ml Mdv 20 Ml Ml Administered 10/20/24 22:31 Dose 5 ml .ROUTE .STK-MED ONE - Progress Progress: improved, re-examined Progress Note: 10/20/24 23:31 My medical decision making and the assignment of low complexity to this patient's medical issue today is based on review of the patient's past medical history, review of the patient's medication list, history present illness and physical findings on examination. The workup does not require radiographic or laboratory studies. Differential diagnosis includes but is not limited to onychocryptosis, skin infection around great toe of left foot Counseled pt/family regarding: diagnosis, need for follow-up Medical Desision Making - Independent Historian Additional History obtained from: Spouse - Risk of complications The pt has a mod risk of morbidity or mortality based on: Need for prescription drug management - Departure Departure Disposition: Home Clinical Impression: Onychocryptosis Condition: Stable Critical Care Time: No Referrals: SANTOS ESPINAL NP [Primary Care Provider] - Follow up/PCP as directed Additional Instructions: Soak the left foot in warm soapy water as well as alternating soaking the foot in warm Epsom salts. Take your antibiotics as prescribed. May use Tylenol and ibuprofen for pain control. Call the finisher operator of choice on 10/22/2024, to make arrangements for follow-up appointment to discuss options to help resolve or decreased episodes of onychocryptosis. Prescriptions: Cephalexin Mh 500 mg [Keflex 500 mg] 500 mg PO TID #15 cap
[2024-10-20] MEDS ORDERED: XYLOCAINE 1% HCL 20 ML MDV ONE (22:30)
[2024-10-20] MEDS ORDERED: KEFLEX 500 MG ONE (23:49)
[2024-10-20] MEDS ORDERED: NORCO 5/325 MG ONE (23:50)
[2024-10-20] MEDS: KEFLEX 500 MG PO ONE (23:51)
[2024-10-20] MEDS: NORCO 5/325 MG PO ONE ×2 (23:52→23:54)
[2024-10-20 23:58] VITALS: RESP 18
[2024-10-21 00:21] VITALS: BP 127/80; PULSE 73; O2SAT 99
== END 2024-10-21 00:21 | disposition home or self-care (01) ==
LOC: ED 20:15
DX: L60.0 Ingrowing nail (principal)
CPT/HCPCS: 11750; 99282; 99283; A9270-GY

== ENCOUNTER 2025-02-18 17:53 | Emergency (ER) | payer MEDICAID ==
[2025-02-18 18:09] VITALS: RESP 18; TEMP 97.3
[2025-02-18] MEDS ORDERED: Zofran 4 MG/2 ML VIAL ONE (18:25)
--- NOTE | 2025-02-18 18:25 | ERPHSYRPT ---
- History of Present Illness Source: patient Exam Limitations: no limitations Patient Subjective Stated Complaint: pt states that he has been vomiting and having diarrhea for the last 3 days Triage Nursing Assessment: pt ambulated into the er; pt is axo x4; c/o vomiting; pt states 8/10 pain to abd; abd obese, round, nontender; hyperactive bowel sounds in all quads; c/o N/V/D; mucus membranes pink and moist; skin PDW; no respiratory disress present; vitals wnl Physician History: Patient's had nausea vomiting diarrhea for about 3 days. He says he is dehydrated. He is urinating but urinating less. He says it is fairly concentrated when it happens.Eating makes the nausea and vomiting worse. Nothing really makes it better. He is not really able to keep fluids down very well. He says he feels his mucous membranes are dry as well 2. He does not have any abdominal pain. He had a fever yesterday around 101. He is afebrile today. He does not have any toxic systemic symptoms. Severity: mild, moderate Allergies/Adverse Reactions: sulfamethoxazole [From Bactrim] Allergy (Unknown, Verified 02/18/25 17:59) trimethoprim [From Bactrim] Allergy (Unknown, Verified 02/18/25 17:59) Home Medications: Famotidine 20 mg PO DAILY 05/23/24 [History] Losartan Potassium 1 tab PO DAILY 10/02/24 [History] Rosuvastatin Calcium [Ezallor Sprinkle] 1 cap PO DAILY 10/02/24 [History] Propranolol HCl [Propranolol HCl ER] 60 mg PO DAILY 10/20/24 [History] Hx Tetanus, Diphtheria Vaccination/Date Given: Yes Hx Influenza Vaccination/Date Given: Yes Hx Pneumococcal Vaccination/Date Given: No Travel Risk - International Travel Have you traveled outside of the country in past 3 weeks: No - Emerging Infectious Disease Are you exhibiting symptoms associated with any current EIDs: Yes Symptoms: Abdominal Pain, Diarrhea, Headaches/Body Aches/, Vomitting - Review of Systems Constitutional: No Symptoms Eyes: No Symptoms Respiratory: No Symptoms Abdominal/Gastrointestinal: Nausea, Vomiting, Diarrhea Genitourinary Symptoms: No Symptoms All Other Systems: Reviewed and Negative - Past Medical History Pertinent Past Medical History: Yes Neurological History: No Pertinent History ENT History: No Pertinent History Cardiac History: Hypertension Respiratory History: Other Endocrine Medical History: No Pertinent History Musculoskeletal History: No Pertinent History GI Medical History: GERD History: No Pertinent History Psycho-Social History: Depression Male Reproductive Disorders: No Pertinent History Other Medical History: MRSA infection to LLE, COVID-19 X 2 - Past Surgical History Past Surgical History: Yes - Social History Smoking Status: Current every day smoker How long have you smoked: years Exposure to second hand smoke: Yes Drug Use: none - Social Determinants of Health Will the patient participate in the screening: Yes Do you worry about a steady place to live?: No Do you have any problems with any of the following?: No known problems In the past 12 months,have you had to go without utilities?: No Transportation Issues: No Has anyone in your support network made you feel unsafe?: No Have you or anyone in your house had to go w/o enough food: No - Nursing Vital Signs Nursing Vital Signs: Initial Vital Signs Pulse Rate 71 02/18/25 18:00 Blood Pressure 93/50 02/18/25 18:00 O2 Sat by Pulse Oximetry 97 02/18/25 18:00 Pain Scale Pain Intensity 8 - Physical Exam General Appearance: no apparent distress Eye Exam: PERRL/EOMI Ears, Nose, Throat Exam: normal ENT inspection Respiratory Exam: normal breath sounds, lungs clear, No chest tenderness, No respiratory distress Cardiovascular Exam: regular rate/rhythm Gastrointestinal/Abdomen Exam: soft, normal bowel sounds, No tenderness, No distention Neurologic Exam: alert, oriented x 3, cooperative Skin Exam: normal color, warm, dry SpO2: 97 Ordered Tests: Active Orders 24 hr Category Date Time Status CBC W DIFF Stat Lab 02/18/25 18:25 Completed CMP Stat Lab 02/18/25 18:25 Completed Medication Summary Generic Name Dose Route Start Last Admin Trade Name Freq PRN Reason Stop Dose Admin Sodium Chloride 1,000 mls @ 999 mls/hr 02/18/25 18:17 02/18/25 18:26 Sodium Chloride 0.9% 1000 Ml IV 02/18/25 19:17 999 mls/hr .Q1H1M STA Administration Discontinued Medications Generic Name Dose Route Start Last Admin Trade Name Freq PRN Reason Stop Dose Admin Sodium Chloride Confirm 02/18/25 18:26 Sodium Chloride 0.9% 1000 Ml Administered 02/18/25 18:27 Dose 1,000 mls @ ud .ROUTE .STK-MED ONE Ondansetron HCl 4 mg 02/18/25 18:17 02/18/25 18:26 Ondansetron Hcl 4 Mg/2 Ml Vial IV 02/18/25 18:18 4 mg STAT ONE Administration Ondansetron HCl Confirm 02/18/25 18:25 Ondansetron Hcl 4 Mg/2 Ml Vial Administered 02/18/25 18:26 Dose 4 mg .ROUTE .STK-MED ONE Lab/Rad Data: Laboratory Result Diagrams 02/18/25 18:25 02/18/25 18:25 Laboratory Results 02/18/25 02/18/25 Range/Units 18:25 18:25 WBC 5.3 (4.23-9.07) x10^3/uL RBC 4.80 (4.63-6.08) x10^6/uL Hgb 14.2 (13.7-17.5) g/dL Hct 41.7 (40.1-51.0) % MCV 86.9 (79.0-92.2) fL MCH 29.6 (25.7-32.2) pg MCHC 34.1 (32.3-36.5) g/dL RDW 12.2 (11.6-14.4) % Plt Count 259 (163-337) x10^3/uL MPV 10.7 (9.4-12.4) fL Gran % 43.7 (34.0-67.9) % Immature Gran % (Auto) 0.2 (0.001-0.429) % Nucleat RBC Rel Count 0.0 (0.00-0.2) % Eos # (Auto) 0.13 (0.04-0.54) x10^3/uL Immature Gran # (Auto) 0.01 (0.001-0.031) x10^3u/L Absolute Lymphs (auto) 2.15 (1.32-3.57) x10^3/uL Absolute Monos (auto) 0.68 (0.30-0.82) x10^3/uL Absolute Nucleated RBC 0.00 (0.00-0.012) x10^3u/L Lymphocytes % 40.3 (21.8-53.1) % Monocytes % 12.7 H (5.3-12.2) % Eosinophils % 2.4 (0.8-7.0) % Basophils % 0.7 (0.2-1.2) % Absolute Granulocytes 2.33 (1.78-5.38) x10^3/uL Basophils # 0.04 (0.01-0.08) x10^3/uL Sodium 141 (135-145) mmol/L Potassium 3.9 (3.5-5.1) mmol/L Chloride 106 (98-107) mmol/L Carbon Dioxide 20 L (22-30) mmol/L Anion Gap 19.5 H (5-15) MEQ/L BUN 16 (9-20) mg/dL Creatinine 1.19 (0.66-1.25) mg/dL Estimated GFR 85.3 ML/MIN Glucose 90 (74-106) mg/dL Calcium 9.2 (8.4-10.2) mg/dL Total Bilirubin 0.40 (0.2-1.3) mg/dL AST 45 (17-59) U/L ALT 67 H (0-50) U/L Alkaline Phosphatase 73 (38-126) U/L Serum Total Protein 7.1 (6.3-8.2) g/dL Albumin 4.7 (3.5-5.0) g/dL - Progress Progress: improved Progress Note: Patient got a liter of fluids. He is much improved. His abdomen was soft I do not think he had anything other than viral gastroenteritis.A surgical abdomen is a lot less likely given his benign physical exam.He got a liter of fluids here and some Zofran he felt much better. I went to send him home with some Zofran. 02/18/25 19:01 Medical Desision Making - Risk of complications Minimal Risk: Minimal risk of morbidity - Departure Departure Disposition: Home Clinical Impression: Nausea vomiting and diarrhea Condition: Stable Critical Care Time: No Referrals: SANTOS ESPINAL NP [Primary Care Provider, FAMILY PRACTICE] - Follow up/PCP as directed Instructions: Viral gastroenteritis in adults Prescriptions: Ondansetron ODT 4 MG [Zofran Odt 4 mg] 4 mg PO Q6H PRN PRN #10 tablet PRN Reason: Nausea
[2025-02-18] MEDS: Sodium Chloride 0.9% 1000 ML 1,000 ML IV STA (18:26)
[2025-02-18] MEDS: Zofran 4 MG/2 ML VIAL IV ONE (18:26)
[2025-02-18] MEDS ORDERED: Sodium Chloride 0.9% 1000 ML 1,000 ML ONE (18:26)
[2025-02-18 18:27] LABS: Absolute Neutrophil Ct (ANC) 2.33 x10^3/uL (1.78-5.38); BASOPHIL % 0.7 % (0.2-1.2); Basophil (Absolute #) 0.04 x10^3/uL (0.01-0.08); Eosinophil % 2.4 % (0.8-7.0); Eosinophil (Absolute #) 0.13 x10^3/uL (0.04-0.54); Hematocrit 41.7 % (40.1-51.0); Hemoglobin 14.2 g/dL (13.7-17.5); IMMATURE GRAN # 0.01 x10^3u/L (0.001-0.031); IMMATURE GRAN % 0.2 % (0.001-0.429); Lymphocyte (Absolute #) 2.15 x10^3/uL (1.32-3.57); Lymphocytes % 40.3 % (21.8-53.1); Mean Cell Volume 86.9 fL (79.0-92.2); Mean Corpuscular Hemoglobin 29.6 pg (25.7-32.2); Mean Corpuscular Hgb Concent. 34.1 g/dL (32.3-36.5); Mean Platelet Volume 10.7 fL (9.4-12.4); Monocyte (Absolute #) 0.68 x10^3/uL (0.30-0.82); Monocytes % 12.7 % (5.3-12.2); Neutrophil % 43.7 % (34.0-67.9); Platelet Count 259 x10^3/uL (163-337); Red Cell Distribution Width 12.2 % (11.6-14.4); White Blood Count 5.3 x10^3/uL (4.23-9.07)
[2025-02-18 18:45] LABS: ALBUMIN 4.7 g/dL (3.5-5.0); ANION GAP 19.5 MEQ/L (5-15); BILIRUBIN,TOTAL 0.4 mg/dL (0.2-1.3); Calcium 9.2 mg/dL (8.4-10.2); Creatinine 1 1.19 mg/dL (0.66-1.25); EST GLOMERULAR FILTRATION RATE 85.3 ML/MIN; Potassium 3.9 mmol/L (3.5-5.1); Total Protein 7.1 g/dL (6.3-8.2)
[2025-02-18 19:07] VITALS: PULSE 75
[2025-02-18 19:42] VITALS: BP 131/61; O2SAT 98
== END 2025-02-18 19:44 | disposition home or self-care (01) ==
LOC: ED 17:53
DX: R11.2 Nausea with vomiting, unspecified (principal); R19.7 Diarrhea, unspecified; I10 Essential (primary) hypertension; Z79.899 Other long term (current) drug therapy; Z72.0 Tobacco use
CPT/HCPCS: 36415; 80053; 85025; 96361; 96374; 99284; J2405

== ENCOUNTER 2025-02-28 21:53 | Emergency (ER) | payer MEDICAID ==
[2025-02-28 22:33] VITALS: RESP 18; TEMP 96.6
[2025-02-28] MEDS ORDERED: Cipro 500 MG ONE (22:33)
[2025-02-28] MEDS: Cipro 500 MG PO STA (22:35)
--- NOTE | 2025-02-28 22:43 | ERPHSYRPT ---
- History of Present Illness Time Seen by Provider: 02/28/25 22:04 Source: patient Exam Limitations: no limitations Patient Subjective Stated Complaint: pt states that he had his toe nails taken off 4 weeks ago. pt states tuesday he had a culture done on tuesday and was star zora on doxy. pt states that he began to have headache, sorethroat, dizziness and vomiting after taking antibiotic. pt states that he stopped medication yesterday. pt states that he has had MRSA in the past and doesn't want it to get worse. Triage Nursing Assessment: pt ambulated into the er; pt is axo x4; c/o reaction to medication; pt denies pain; no redness present to left great toe; redness present to rt great toe, yellow purulent drainage present to rt great toe; missing half toenail to rt great toe; no respiratory distress present; skin PDW; wnl Physician History: 29 years old presented in the ER with abdominal discomfort, headache, feeling dizzy and nausea after he has been started on doxycycline for his toe infections which has MRSA positive. No fever or chills reported. Denies any diarrhea. Patient thinks he has side effects and wants to switch to a different antibiotic. Allergies/Adverse Reactions: sulfamethoxazole [From Bactrim] Allergy (Unknown, Verified 02/18/25 17:59) trimethoprim [From Bactrim] Allergy (Unknown, Verified 02/18/25 17:59) doxycycline Allergy (Verified 02/28/25 22:14) Headache Home Medications: Famotidine 20 mg PO DAILY 05/23/24 [History] Losartan Potassium 1 tab PO DAILY 10/02/24 [History] Rosuvastatin Calcium [Ezallor Sprinkle] 1 cap PO DAILY 10/02/24 [History] Propranolol HCl [Propranolol HCl ER] 60 mg PO DAILY 10/20/24 [History] Hx Tetanus, Diphtheria Vaccination/Date Given: Yes Hx Influenza Vaccination/Date Given: Yes Hx Pneumococcal Vaccination/Date Given: No Travel Risk - International Travel Have you traveled outside of the country in past 3 weeks: No - Emerging Infectious Disease Are you exhibiting symptoms associated with any current EIDs: No Symptoms: Abdominal Pain, Diarrhea, Headaches/Body Aches/, Vomitting - Review of Systems Constitutional: Fatigue Eyes: No Symptoms Ears, Nose, & Throat: No Symptoms Respiratory: No Symptoms Abdominal/Gastrointestinal: Abdominal Pain, Nausea, Vomiting Genitourinary Symptoms: No Symptoms Musculoskeletal: Myalgias Neurological: Headache Psychological: No Symptoms Endocrine: No Symptoms - Past Medical History Pertinent Past Medical History: Yes Neurological History: No Pertinent History ENT History: No Pertinent History Cardiac History: Hypertension Respiratory History: Other Endocrine Medical History: No Pertinent History Musculoskeletal History: No Pertinent History GI Medical History: GERD History: No Pertinent History Psycho-Social History: Depression Male Reproductive Disorders: No Pertinent History Other Medical History: MRSA infection to LLE, COVID-19 X 2 - Past Surgical History Past Surgical History: Yes Musculoskeletal: Orthopedic Surgery Other Surgical History: binh great toenail removal - Social History Smoking Status: Current every day smoker How long have you smoked: years Exposure to second hand smoke: Yes Drug Use: none - Social Determinants of Health Will the patient participate in the screening: Yes Do you worry about a steady place to live?: No Do you have any problems with any of the following?: No known problems In the past 12 months,have you had to go without utilities?: No Transportation Issues: No Has anyone in your support network made you feel unsafe?: No Have you or anyone in your house had to go w/o enough food: No - Nursing Vital Signs Nursing Vital Signs: Initial Vital Signs Temperature 96.6 F 02/28/25 22:13 Pulse Rate 74 02/28/25 22:13 Respiratory Rate 18 02/28/25 22:13 Blood Pressure 110/67 02/28/25 22:13 O2 Sat by Pulse Oximetry 97 02/28/25 22:13 Pain Scale Pain Intensity 0 - Physical Exam General Appearance: no apparent distress Eye Exam: PERRL/EOMI Ears, Nose, Throat Exam: normal ENT inspection Neck Exam: normal inspection, full range of motion Respiratory Exam: normal breath sounds, lungs clear Cardiovascular Exam: regular rate/rhythm, normal heart sounds Gastrointestinal/Abdomen Exam: soft, normal bowel sounds, No tenderness Back Exam: normal inspection Extremity Exam: normal inspection, normal range of motion Neurologic Exam: alert, oriented x 3, cooperative Skin Exam: normal color SpO2 Interpretation: normal SpO2: 97 O2 Delivery: Room Air Ordered Tests: Medication Summary Discontinued Medications Generic Name Dose Route Start Last Admin Trade Name Freq PRN Reason Stop Dose Admin Ciprofloxacin 500 mg 02/28/25 22:30 02/28/25 22:35 Ciprofloxacin 500 Mg Tablet PO 02/28/25 22:31 500 mg ONCE STA Administration Ciprofloxacin Confirm 02/28/25 22:33 Ciprofloxacin 500 Mg Tablet Administered 02/28/25 22:34 Dose 500 mg .ROUTE .STK-MED ONE - Progress Progress: unchanged Progress Note: 02/28/25 22:40 Elliott diagnosis: Viral syndrome, gastroenteritis, medication side effect 29 years old is evaluated in the ER for doxycycline side effects which she is taking for MRSA in the toe Patient is not in any distress, abdominal exam is soft nontender with normoactive bowel sounds Stable vitals He is started on ciprofloxacin based on culture sensitivities. Recommended increase hydration and outpatient follow-up with podiatry for reevaluation. Discussed signs symptoms of worsening and return to ER which he seems understanding. Stable for discharge. Counseled pt/family regarding: diagnosis, need for follow-up Medical Desision Making - Diagnostic Testing Diagnostic test were ordered, analyzed, and reviewed by me: No - Risk of complications The pt has a mod risk of morbidity or mortality based on: Need for prescription drug management - Departure Departure Disposition: Home Clinical Impression: Medication side effect, MRSA (methicillin resistant staph aureus) culture positive Condition: Stable Critical Care Time: No Referrals: SANTOS ESPINAL NP [Primary Care Provider, [facility]] - Follow up with PCP 1 day ESTEPHANIA FERNANDEZ DPM [ACTIVE STAFF, PODIATRY] - Follow up/PCP as directed Referral Note: Call for appointment for reevaluation Instructions: Methicillin-resistant Staphylococcus aureus (MRSA) Additional Instructions: Take Tylenol/ibuprofen as needed. Drink plenty of fluids. Follow-up with podiatry for reevaluation. Return to ER for any worsening. Prescriptions: Ciprofloxacin HCl 500 mg PO BID 10 Days #20 tablet
[2025-02-28 23:05] VITALS: BP 100/47; PULSE 74; O2SAT 96
== END 2025-02-28 22:56 | disposition home or self-care (01) ==
LOC: ED 21:53
DX: R42 Dizziness and giddiness (principal); T36.4X5A Adverse effect of tetracyclines, initial encounter; R51.9 Headache, unspecified; R10.9 Unspecified abdominal pain; R11.0 Nausea; L08.9 Local infection of the skin and subcutaneous tissue, unspecified; B95.62 Methicillin resistant Staphylococcus aureus infection as the cause of diseases classified elsewhere; Z79.899 Other long term (current) drug therapy; Z72.0 Tobacco use
CPT/HCPCS: 99281; 99283; A9270-GY

== ENCOUNTER 2025-05-19 21:42 | Emergency (ER) | payer MEDICAID ==
--- NOTE | 2025-05-19 21:46 | ERPHSYRPT ---
- History of Present Illness Time Seen by Provider: 05/19/25 21:45 Source: patient Exam Limitations: no limitations Physician History: This is a 29-year-old morbidly obese white male patient arrives by private vehicle and is a patient of nurse practitioner Christiano with a complaint of back pain in the lower back that began later this evening after working all day cutting and stacking wood. He did not have pain before his activity today. He did not fall or suffer any acute trauma to the area. Patient has a history of gastroesophageal mucosal disease, hypertension, hyperlipidemia and depression and is allergic to sulfa medication and doxycycline. Patient has no co nstipation. Patient has no urinary or bowel incontinence. He has no pain that is shooting down his legs and has no pain or numbness in his feet Timing/Duration: today Method of Injury: bending, lifting, twisted, turning Quality: sharp, aching Back Pain Location: paraspinous muscles (Lumbar level paraspinous muscles. No spinal tenderness at any level) Severity of Pain-Max: moderate Severity of Pain-Current: moderate Modifying Factors: Improves With: movement Associated Symptoms: denies symptoms, lower back pain, muscle spasms (Paraspinous muscle lumbar level), No urinary incontinence, No constipation, No problems urinating, No numbness in legs/feet, No weakness, No sensory/motor loss, No tingling in legs/feet Previous symptoms: no prior history, no recent treatment Allergies/Adverse Reactions: sulfamethoxazole [From Bactrim] Allergy (Unknown, Verified 05/19/25 21:52) trimethoprim [From Bactrim] Allergy (Unknown, Verified 05/19/25 21:52) doxycycline Allergy (Verified 05/19/25 21:52) Headache Home Medications: Famotidine 20 mg PO DAILY 05/23/24 [History] Losartan Potassium 1 tab PO DAILY 10/02/24 [History] Rosuvastatin Calcium [Ezallor Sprinkle] 1 cap PO DAILY 10/02/24 [History] Propranolol HCl [Propranolol HCl ER] 60 mg PO DAILY 10/20/24 [History] Hx Tetanus, Diphtheria Vaccination/Date Given: Yes Hx Influenza Vaccination/Date Given: Yes Hx Pneumococcal Vaccination/Date Given: No Travel Risk - International Travel Have you traveled outside of the country in past 3 weeks: No - Emerging Infectious Disease Are you exhibiting symptoms associated with any current EIDs: No Symptoms: Abdominal Pain, Diarrhea, Headaches/Body Aches/, Vomitting - Review of Systems Constitutional: No Symptoms Eyes: No Symptoms Ears, Nose, & Throat: No Symptoms Respiratory: No Symptoms Cardiac: No Symptoms Abdominal/Gastrointestinal: No Symptoms Genitourinary Symptoms: No Symptoms Musculoskeletal: Back Pain (Lumbar level) Skin: No Symptoms Neurological: No Symptoms Psychological: No Symptoms Endocrine: No Symptoms Hematologic/Lymphatic: No Symptoms Immunological/Allergic: No Symptoms All Other Systems: Reviewed and Negative - Past Medical History Pertinent Past Medical History: Yes Neurological History: No Pertinent History ENT History: No Pertinent History Cardiac History: Hypertension Respiratory History: Other Endocrine Medical History: No Pertinent History Musculoskeletal History: No Pertinent History GI Medical History: GERD History: No Pertinent History Psycho-Social History: Depression Male Reproductive Disorders: No Pertinent History Other Medical History: MRSA infection to LLE, COVID-19 X 2 - Past Surgical History Past Surgical History: Yes Musculoskeletal: Orthopedic Surgery Other Surgical History: binh great toenail removal - Social History Smoking Status: Current every day smoker How long have you smoked: years Exposure to second hand smoke: Yes Drug Use: none - Social Determinants of Health Will the patient participate in the screening: Yes Do you worry about a steady place to live?: No In the past 12 months,have you had to go without utilities?: No Transportation Issues: No Has anyone in your support network made you feel unsafe?: No Have you or anyone in your house had to go w/o enough food: No - Physical Exam General Appearance: no apparent distress, alert, anxiety, obese Eye Exam: PERRL/EOMI, eyes nml inspection Ears, Nose, Throat Exam: normal ENT inspection, moist mucous membranes Neck Exam: normal inspection, non-tender, supple, full range of motion Respiratory Exam: airway intact, No chest tenderness, No respiratory distress Gastrointestinal Exam: soft, normal bowel sounds, No tenderness, No guarding, No rebound Rectal Exam: not done Back Exam: normal inspection, normal range of motion, muscle spasm (Bilateral lumbar level), No CVA tenderness, No vertebral tenderness Extremity Exam: normal inspection, normal range of motion, pelvis stable Neurologic Exam: alert, oriented x 3, cooperative, joy loader II-XII nml as tested, nml cerebellar function, nml station & gait, sensation nml Skin Exam: normal color, warm, dry Lymphatic Exam: No adenopathy SpO2 Interpretation: normal O2 Delivery: Room Air - Course Nursing assessment & vital signs reviewed: Yes Ordered Tests: Medication Summary Generic Name Dose Route Start Last Admin Trade Name Clarissa PRN Reason Stop Dose Admin Prednisone 20 mg 05/19/25 21:54 Prednisone 20 Mg Tablet PO 05/19/25 21:55 STAT ONE Discontinued Medications Generic Name Dose Route Start Last Admin Trade Name Clarissa PRN Reason Stop Dose Admin Orphenadrine Citrate 60 mg 05/19/25 21:53 Orphenadrine Citrate 60 Mg/2 Ml Vial IM 05/19/25 21:54 STAT ONE Oxycodone/Acetaminophen 1 tab 05/19/25 21:53 Oxycodone Hcl/Apap 5 Mg/325 Mg Tablet PO 05/19/25 21:54 STAT STA - Progress Progress: improved, pain not gone completely Progress Note: 05/19/25 21:58 My medical decision making and the assignment of low complexity to this patient's medical issue today based on review of the patient's past medical history, review of the patient's medication list, review the patient drug list, history present illness and physical findings on exam patient. The workup in this patient does not necessitate laboratory radiographic studies, although I did offer x-ray of his lumbar spine. Together, we decided that the risk of any subluxation or fractures is low and therefore no radiographic studies were performed. Differential diagnosis includes is not limited to sciatica, muscle spasms, low back pain Counseled pt/family regarding: diagnosis, need for follow-up Medical Desision Making - Diagnostic Testing Diagnostic test were ordered, analyzed, and reviewed by me: No - Risk of complications Low Risk: Low risk of morbidity from additional dx testing or treatment The pt has a mod risk of morbidity or mortality based on: Need for prescription drug management - Departure Departure Disposition: Home Clinical Impression: Low back pain, Muscle spasm of back Condition: Stable Critical Care Time: No Referrals: SANTOS ESPINAL NP [Primary Care Provider, [facility]ILY [facility]ACTICE] - Follow up/PCP as directed Additional Instructions: Take all your medications as prescribed. Call your primary care provider tomorrow, 05/20/2025, to make arrangements for follow-up appointment for further evaluation management and to be seen in the next 5 to 7 days. Prescriptions: Prednisone 10 mg [Deltasone 10 mg] 10 mg PO TID #12 tablet Orphenadrine Citrate 100 mg [Norflex 100 MG Tablet] 100 mg PO BID #10 tab
[2025-05-19 21:58] VITALS: BP 138/71; PULSE 74; RESP 18; TEMP 96.9; O2SAT 99
[2025-05-19] MEDS ORDERED: PERCOCET TABLET 5/325MG ONE (22:11)
[2025-05-19] MEDS ORDERED: DELTASONE 20 MG ONE (22:12)
[2025-05-19] MEDS ORDERED: Norflex 60 MG/2 ML ONE (22:12)
[2025-05-19] MEDS: PERCOCET TABLET 5/325MG PO STA (22:14)
[2025-05-19] MEDS: DELTASONE 20 MG PO ONE (22:14)
[2025-05-19] MEDS: Norflex 60 MG/2 ML IM ONE (22:15)
== END 2025-05-19 22:53 | disposition home or self-care (01) ==
LOC: ED 21:42
DX: M54.50 Low back pain, unspecified (principal); M62.830 Muscle spasm of back; I10 Essential (primary) hypertension; Z79.52 Long term (current) use of systemic steroids; Z79.899 Other long term (current) drug therapy; Z72.0 Tobacco use